=== PATIENT | female | born 1970 | race Caucasian/White ===

== ENCOUNTER 2019-08-20 16:42 | Inpatient (IN) | payer OTHER ==
[~2019-08-20] VITALS: Ht 160 cm; Wt 62.5 kg
[2019-08-20] MEDS ORDERED: SODIUM CHLORIDE 0.9% 1,000 ML IV ONE ×2 (17:12)
[2019-08-20 18:11] LABS: Basophils # (auto) 0 10 ^3/uL (0-0.2); Eosinophils # (auto) 0.1 10 ^3/uL (0-0.8); Mean Corpuscular Volume 76.4 fL (80.0-100.0); Monocytes # (auto) 0.3 10 ^3/uL (0-1.3)
[2019-08-20 18:13] LABS: Basophils % (auto) 0.5 % (0.0-2.0); Eosinophils % (auto) 0.8 % (0.0-7.0); Hematocrit 37.4 % (36.0-46.0); Hemoglobin 11.8 g/dL (12.2-16.2); Lymphocytes # (auto) 2.6 10 ^3/uL (0.4-5.4); Lymphocytes % (auto) 37.7 % (10.0-50.0); Mean Corpuscular Hemoglobin 24.2 pg (28.0-32.0); Mean Corpuscular Hgb Conc. 31.6 g/dL (32.0-36.0); Monocytes % (auto) 4.2 % (0.0-12.0); Neutrophils # (auto) 3.9 10 ^3/uL (1.6-8.6); Neutrophils % (auto) 56.8 % (37.0-80.0); Nucleated Red Blood Cells % 0.1 %; Platelet Count (auto) 433 10^3/uL (140-450); Red Blood Cells 4.89 10^6/uL (4.0-5.20); White Blood Cell 6.9 10^3/uL (4.4-10.8)
[2019-08-20 18:22] LABS: Red Cell Distribution Width 35.8 % (11.8-14.3)
[2019-08-20 18:25] LABS: Albumin 2.4 g/dL (3.4-5.0); Anion Gap 8 (5-15); Blood Urea Nitrogen 22 mg/dL (7-18); Calcium 8.2 mg/dL (8.5-10.1); Carbon Dioxide 24 mmol/L (21-32); Chloride 110 mmol/L (98-107); Glucose 86 mg/dL (74-106); Potassium 3.8 mmol/L (3.5-5.1); Sodium 142 mmol/L (136-145)
[2019-08-20 18:30] LABS: Alanine Aminotransferase 37 U/L (13-56); Alkaline Phosphatase 119 U/L (45-117); Aspartate Aminotransferase 31 U/L (15-37); Bilirubin, Total 0.2 mg/dL (0.2-1.0); GFR African American 68 mL/min; GFR Non-African American 56 mL/min
[2019-08-20] MEDS ORDERED: NITROGLYCERIN 0.4 MG SL TAB SL PRN (19:00)
[2019-08-20] MEDS ORDERED: MORPHINE SULF INJ 2 MG/ML SYRINGE 1ML IV PRN (19:00)
[2019-08-20] MEDS ORDERED: DOCUSATE SOD 100 MG CAP PO PRN (19:00)
[2019-08-20] MEDS ORDERED: TEMAZEPAM 15 MG CAP PO PRN (19:00)
[2019-08-20] MEDS ORDERED: ONDANSETRON HCL 4 MG/2 ML VIAL IV PRN (19:00)
--- NOTE | 2019-08-20 20:10 | NUR ---
received pt from er nurse poc reviewed, pt transferred into bed 218b with all property all questions and concerns addressed
[2019-08-20] MEDS ORDERED: ONDA-144 PO (21:07)
[2019-08-20] MEDS ORDERED: FERR-20 PO (21:07)
[2019-08-20] MEDS ORDERED: GABA300C10 PO (21:07)
[2019-08-20] MEDS ORDERED: TOPI100T29 PO (21:07)
[2019-08-20] MEDS ORDERED: TIOTCAP IN (21:07)
[2019-08-20] MEDS ORDERED: BEN2I PO (21:07)
[2019-08-20] MEDS ORDERED: ROPI6TAB PO (21:07)
[2019-08-20] MEDS ORDERED: VORT10TA PO (21:07)
[2019-08-20] MEDS ORDERED: IPRIH IN (21:07)
[2019-08-20] MEDS ORDERED: BENA-30 PO (21:07)
[2019-08-20] MEDS ORDERED: LURA80TA PO (21:07)
[2019-08-20] MEDS ORDERED: QUET200T4 PO (21:07)
[2019-08-20] MEDS ORDERED: METF-370 PO (21:07)
[2019-08-20] MEDS ORDERED: DOCU1CAP31 PO (21:07)
[2019-08-20] MEDS ORDERED: ALBU2TAB4 PO (21:07)
[2019-08-20] MEDS ORDERED: SIMV-8 PO (21:07)
[2019-08-20] MEDS ORDERED: FURO1TAB33 PO (21:07)
[2019-08-20] MEDS ORDERED: ALBUTEROL SULF 2.5 MG/0.5ML(0.5%) NEB SOLN NEB PRN (21:15)
[2019-08-20] MEDS ORDERED: methylPREDNISolone SOD SUCC 125 MG/2 ML VL IV ONE (21:15)
[2019-08-20] MEDS ORDERED: DEXTROSE (50%) 50ML SYRG IV PRN (21:15)
[2019-08-20 22:00] VITALS: BP 101/63
[2019-08-20] MEDS ORDERED: IPRATROPIUM BROM 0.5 MG/2.5ML INH SOL NEB SCH (22:00)
--- NOTE | 2019-08-20 22:15 | NUR ---
C/O GENERAL PAIN 12/20 MEDICATED ORDERED
[2019-08-20] MEDS: InsuLIN REG 1unit/0.01ml Soln (100units/ml) SC SCH (22:18)
[2019-08-20] MEDS: methylPREDNISolone SOD SUCC 40 MG/ML VL IV SCH (22:18)
[2019-08-20] MEDS: MORPHINE SULFATE 4 MG/ML SYR/VIAL IV PRN (22:18)
[2019-08-20] MEDS: AZITHROMYCIN 500MG/ 250ML 250 ML IV SCH (22:19)
[2019-08-20] MEDS: ACCU-CHEK COMFORT CURVE STRIP VI SCH (22:20)
[2019-08-20] MEDS: SODIUM CHLORIDE 0.9% 1,000 ML IV SCH (22:21)
--- NOTE | 2019-08-20 23:35 | NUR ---
RESTING COMFORTABLE RESP EVEN AND UNLABORED, CALL LIGHT WITHIN REACH
[2019-08-21] MEDS: SODIUM CHLORIDE 0.9% 1,000 ML IV SCH ×2 (02:52→06:12)
[2019-08-21] MEDS: MORPHINE SULFATE 4 MG/ML SYR/VIAL IV PRN ×2 (03:15→09:20)
[2019-08-21 03:43] LABS: Urine WBC None Seen /hpf (0 - 5)
[2019-08-21 04:06] LABS: Urine Bacteria NONE SEEN /hpf (None Seen); Urine Blood Negative /uL (Negative); Urine Mucus FEW (None Seen); Urine Specific Gravity 1.018 (1.001-1.035)
[2019-08-21 05:00] VITALS: BP 87/54
[2019-08-21] MEDS: methylPREDNISolone SOD SUCC 40 MG/ML VL IV SCH (05:36)
[2019-08-21] MEDS: ACCU-CHEK COMFORT CURVE STRIP VI SCH ×2 (05:36→12:44)
[2019-08-21] MEDS: InsuLIN REG 1unit/0.01ml Soln (100units/ml) SC SCH ×2 (05:46→12:40)
[2019-08-21] MEDS ORDERED: FUROSEMIDE 20 MG/2 ML VIAL IV SCH (06:00)
[2019-08-21 06:17] VITALS: BP 93/54
--- NOTE | 2019-08-21 06:44 | NUR ---
REPORT GIVEN TO AM NURSE POC REVIEWED
[2019-08-21 07:16] LABS: Basophils # (auto) 0 10 ^3/uL (0-0.2); Eosinophils # (auto) 0 10 ^3/uL (0-0.8); Eosinophils % (auto) 0.1 % (0.0-7.0); Monocytes # (auto) 0.1 10 ^3/uL (0-1.3); Neutrophils # (auto) 2.5 10 ^3/uL (1.6-8.6)
[2019-08-21 07:20] LABS: Basophils % (auto) 0.6 % (0.0-2.0); Hematocrit 32.4 % (36.0-46.0); Hemoglobin 10.2 g/dL (12.2-16.2); Lymphocytes % (auto) 28.7 % (10.0-50.0); Mean Corpuscular Hemoglobin 24.2 pg (28.0-32.0); Mean Corpuscular Hgb Conc. 31.6 g/dL (32.0-36.0); Mean Corpuscular Volume 76.6 fL (80.0-100.0); Monocytes % (auto) 2.7 % (0.0-12.0); Neutrophils % (auto) 67.9 % (37.0-80.0); Nucleated Red Blood Cells % 0.1 %; Platelet Count (auto) 387 10^3/uL (140-450); Red Blood Cells 4.23 10^6/uL (4.0-5.20); White Blood Cell 3.6 10^3/uL (4.4-10.8)
[2019-08-21 07:23] LABS: Red Cell Distribution Width 35.9 % (11.8-14.3)
[2019-08-21 07:30] LABS: INR 1.01 (0.9-1.15); Partial Thromboplastin Time 24.5 sec (23.64-32.05)
--- NOTE | 2019-08-21 07:30 | NUR ---
Opening Shift Note Assumed care of patient, awake and alert. No S/S of distress/SOB or pain. Instructed on POC and to call for assist PRN, will continue to monitor for changes Q1hr and PRN. Bed in low and locked position, rails up x2, no-slip socks on.
[2019-08-21 07:34] LABS: % Iron Saturation 33.9 % (15-50)
[2019-08-21 07:36] LABS: Magnesium 1.7 mg/dL (1.6-2.6); Potassium 4.3 mmol/L (3.5-5.1)
[2019-08-21 07:43] LABS: Albumin 1.8 g/dL (3.4-5.0); BUN/Creatinine Ratio 21.4; Bilirubin, Total 0.1 mg/dL (0.2-1.0); CRP High Sensitivity 0.04 mg/dL (< 0.3); Calcium 7.8 mg/dL (8.5-10.1); Phosphorus 3.4 mg/dL (2.5-4.90)
[2019-08-21 08:36] LABS: Ferritin 21.8 ng/mL (10-322)
[2019-08-21 08:55] LABS: Folate (Folic Acid) 6.04 ng/mL (5.38-24)
[2019-08-21 09:00] VITALS: BP 99/64
[2019-08-21] MEDS: AZITHROMYCIN 500MG/ 250ML 250 ML IV SCH (09:20)
[2019-08-21] MEDS ORDERED: ENOXAPARIN SOD 40 MG/0.4 ML SYRINGE SC SCH (10:00)
--- NOTE | 2019-08-21 12:33 | NUR ---
DR Donte JUAREZ AT BEDSIDE ORDERS FOR DISCHARGE
[2019-08-21 13:22] VITALS: BP 99/64
--- NOTE | 2019-08-21 14:25 | NUR ---
DISCHARGE Discharge instructions given as ordered. Encourage to follow up with PMD as instructed. All questions and concerns addressed. Patient verbalized understanding. Medication reconciliation form completed and copy given to patient. IV removed with catheter intact, pressure dressing applied. Patient taken to [facility] via wheelchair with all personal belongings, accompanied by staff to await for family downstairs. No distress noted at time of departure.
[2019-08-22 04:06] LABS: RPR Non Reactive (Non Reactive)
== END 2019-08-21 14:25 | disposition home or self-care (01) | DRG 202 ==
LOC: ER 16:42 → CENTRAL 16:43
PROVIDERS: ADMIT Hospitalist; ATTEND Family Medicine
DX: J45.901 Unspecified asthma with (acute) exacerbation (principal); J44.1 Chronic obstructive pulmonary disease with (acute) exacerbation; E44.0 Moderate protein-calorie malnutrition; D64.9 Anemia, unspecified; R62.7 Adult failure to thrive; F17.210 Nicotine dependence, cigarettes, uncomplicated; Z90.49 Acquired absence of other specified parts of digestive tract; Z90.710 Acquired absence of both cervix and uterus; Z79.899 Other long term (current) drug therapy; Z83.3 Family history of diabetes mellitus; Z82.49 Family history of ischemic heart disease and other diseases of the circulatory system; Z98.84 Bariatric surgery status; Z68.24 Body mass index [BMI] 24.0-24.9, adult; Z71.6 Tobacco abuse counseling; Z88.0 Allergy status to penicillin
CPT/HCPCS: 36415; 70450; 71045; 80053; 80061; 81001; 82607; 82728; 82746; 82962; 83036; 83540; 83550; 83615; 83735; 83880; 84100; 84443; 84484; 85025; 85045; 85610; 85652; 85730; 86141; 86592; 86850; 86900; 86901; 93005; 96360; 96361; 99291; G0378; J1815

== ENCOUNTER 2019-11-23 17:09 | Emergency (ER) | payer OTHER, MEDICAID ==
[~2019-11-23] VITALS: Ht 162.6 cm; Wt 59.9 kg
[~2019-11-23 17:09] MED LIST: ALBU2TAB4 PO; BEN2I PO; BENA-30 PO; DOCU1CAP31 PO; FERR-20 PO; FURO1TAB33 PO; GABA300C10 PO; IPRIH IN; LURA80TA PO; METF-370 PO; ONDA-144 PO; QUET200T4 PO; ROPI6TAB PO; SIMV-8 PO; TIOTCAP IN; TOPI100T29 PO; VORT10TA PO
[2019-11-23] MEDS ORDERED: SODIUM CHLORIDE 0.9% 500 ML IVB ONE (18:08)
[2019-11-23] MEDS ORDERED: HYDROmorphone HCL 2 MG/ML VL IV ONE (18:15)
[2019-11-23] MEDS ORDERED: ONDANSETRON HCL 4 MG/2 ML VIAL IV ONE (18:15)
[2019-11-23 18:37] LABS: Basophils # (auto) 0.1 10 ^3/uL (0-0.2); Basophils % (auto) 1.3 % (0.0-2.0); Eosinophils # (auto) 0.1 10 ^3/uL (0-0.8); Eosinophils % (auto) 1.3 % (0.0-7.0); Hematocrit 35.5 % (36.0-46.0); Hemoglobin 11.3 g/dL (12.2-16.2); Lymphocytes # (auto) 2.5 10 ^3/uL (0.4-5.4); Lymphocytes % (auto) 40.3 % (10.0-50.0); Mean Corpuscular Hemoglobin 29.4 pg (28.0-32.0); Mean Corpuscular Hgb Conc. 31.9 g/dL (32.0-36.0); Mean Corpuscular Volume 92.3 fL (80.0-100.0); Monocytes # (auto) 0.5 10 ^3/uL (0-1.3); Neutrophils % (auto) 49.1 % (37.0-80.0); Nucleated Red Blood Cells % 0.1 %; Platelet Count (auto) 357 10^3/uL (140-450); Red Blood Cells 3.85 10^6/uL (4.0-5.20); Red Cell Distribution Width 17.8 % (11.8-14.3); White Blood Cell 6.1 10^3/uL (4.4-10.8)
[2019-11-23 18:46] LABS: Albumin 1.6 g/dL (3.4-5.0); Calcium 7.4 mg/dL (8.5-10.1); Magnesium 2.4 mg/dL (1.6-2.6); Potassium 3.8 mmol/L (3.5-5.1)
[2019-11-23 18:50] LABS: BUN/Creatinine Ratio 14.3; Bilirubin, Total 0.6 mg/dL (0.2-1.0); Total Protein 4.7 g/dL (6.4-8.2)
[2019-11-23] MEDS ORDERED: ONDANSETRON ODT 4 MG TAB PO ONE (22:00)
[2019-11-23] MEDS ORDERED: metroNIDAZOLE 500MG/100ML 100 ML IV ONE (22:45)
[2019-11-23] MEDS ORDERED: levoFLOXacin 500MG 100 ML IV ONE (22:45)
[2019-11-23] MEDS ORDERED: metroNIDAZOLE 500 MG TAB PO ONE (22:45)
[2019-11-24] VITALS: BP 94/61
== END 2019-11-24 00:30 | disposition other institution (70) ==
LOC: ER 17:09
DX: K56.600 Partial intestinal obstruction, unspecified as to cause (principal); F17.210 Nicotine dependence, cigarettes, uncomplicated; Z86.2 Personal history of diseases of the blood and blood-forming organs and certain disorders involving the immune mechanism; Z90.49 Acquired absence of other specified parts of digestive tract; Z90.89 Acquired absence of other organs; Z90.710 Acquired absence of both cervix and uterus; Z79.899 Other long term (current) drug therapy; Z88.0 Allergy status to penicillin
CPT/HCPCS: 36415; 74176; 80053; 82150; 83690; 83735; 85025; 93005; 96365; 96375; 99285; J1170; J1956; J2405; Q0162

== ENCOUNTER 2020-02-17 17:37 | Inpatient (IN) | payer OTHER, MEDICAID ==
[~2020-02-17] VITALS: Ht 162.6 cm; Wt 53.0 kg
[2020-02-17 18:27] LABS: Basophils # (auto) 0.1 10 ^3/uL (0-0.2); Basophils % (auto) 1.1 % (0.0-2.0); Eosinophils # (auto) 0.2 10 ^3/uL (0-0.8); Eosinophils % (auto) 1.9 % (0.0-7.0); Hematocrit 36.8 % (36.0-46.0); Hemoglobin 12.2 g/dL (12.2-16.2); Lymphocytes # (auto) 1.9 10 ^3/uL (0.4-5.4); Lymphocytes % (auto) 17.4 % (10.0-50.0); Mean Corpuscular Hemoglobin 30.3 pg (28.0-32.0); Mean Corpuscular Hgb Conc. 33.3 g/dL (32.0-36.0); Monocytes # (auto) 0.5 10 ^3/uL (0-1.3); Monocytes % (auto) 5.1 % (0.0-12.0); Neutrophils # (auto) 8.1 10 ^3/uL (1.6-8.6); Neutrophils % (auto) 74.5 % (37.0-80.0); Platelet Count (auto) 406 10^3/uL (140-450); Red Blood Cells 4.05 10^6/uL (4.0-5.20); Red Cell Distribution Width 14.5 % (11.8-14.3); White Blood Cell 10.9 10^3/uL (4.4-10.8)
[2020-02-17 18:38] LABS: Alanine Aminotransferase 19 U/L (13-56); Albumin 1.6 g/dL (3.4-5.0); Anion Gap 6 (5-15); Aspartate Aminotransferase 21 U/L (15-37); BUN/Creatinine Ratio 16.1; Blood Urea Nitrogen 9 mg/dL (7-18); Calcium 7.7 mg/dL (8.5-10.1); Carbon Dioxide 24 mmol/L (21-32); Chloride 114 mmol/L (98-107); GFR African American 148 mL/min; GFR Non-African American 122 mL/min; Glucose 82 mg/dL (74-106); Sodium 144 mmol/L (136-145)
[2020-02-17 18:43] LABS: Alkaline Phosphatase 233 U/L (45-117); Bilirubin, Total 0.6 mg/dL (0.2-1.0)
[2020-02-17 18:48] LABS: Potassium 2.4 mmol/L (3.5-5.1)
[2020-02-17] MEDS ORDERED: POTASSIUM CHL 20MEQ/100ML 100 ML IV ONE (20:15)
[2020-02-17] MEDS ORDERED: ONDANSETRON HCL 4 MG/2 ML VIAL IV ONE (20:45)
[2020-02-17] MEDS ORDERED: MORPHINE SULFATE 4 MG/ML SYR/VIAL IV ONE (20:45)
[2020-02-17] MEDS ORDERED: POTASSIUM CHL 20 Meq TABLET PO ONE (21:45)
[2020-02-17] MEDS ORDERED: ALBUTEROL SULF HFA 90MCG INH 200DOSE IN SCH (22:00)
[2020-02-17] MEDS: ATORVASTATIN 20 MG TAB PO SCH (22:21)
[2020-02-17 22:30] LABS: CRP High Sensitivity 8.52 mg/dL (< 0.3)
[2020-02-17] MEDS ORDERED: DEXTROSE (50%) 50ML SYRG IV PRN (22:30)
[2020-02-17] MEDS ORDERED: MORPHINE SULF INJ 2 MG/ML SYRINGE 1ML IV PRN (22:30)
[2020-02-17] MEDS ORDERED: TEMAZEPAM 15 MG CAP PO PRN (22:30)
[2020-02-17] MEDS ORDERED: NITROGLYCERIN 0.4 MG SL TAB SL PRN (22:30)
[2020-02-17 22:57] VITALS: BP 116/78
--- NOTE | 2020-02-17 22:57 | NUR ---
Respiratory note: PT CURRENTLY ON RA. NO RESP DISTRESS NOTED. MEDICATION HELD DUE TO COVID TEST PENDING. SPO2 97%, HR 77, RR 16 BS CLEAR T/O. WILL CONTINUE TO MONITOR PT T/O SHIFT.
[2020-02-17] MEDS: DOXYCYCLINE 100MG/250ML 250 ML IV SCH (23:31)
[2020-02-17] MEDS: TOPIRAMATE 100 MG TAB PO SCH (23:32)
[2020-02-18] MEDS: HYDROcodone-ACET 5/325MG TAB PO PRN ×3 (02:26→10:38)
--- NOTE | 2020-02-18 05:15 | NUR ---
Telemetry admit from ER [facility] admitted to Telemetry unit after SBAR received. Patient oriented to SOPHIE GRANT RN primary RN, unit, room, bed, and unit policies regarding patient care and visiting hours. Patient now on continuous telemetry monitoring, tele box # 66 and telemetry reading on arrival to unit is Sinus Rhythm at 98BPM. Patient placed on bedside oxygen, weighed by bedscale and encouraged to call if they need something. All questions and concerns addressed, patient verbalized understanding.
[2020-02-18] MEDS ORDERED: SODIUM CHLORIDE 0.9 % NEB SOLN 3ML NEB ONE ×3 (05:38→10:58)
[2020-02-18 05:50] VITALS: BP 110/69
[2020-02-18 05:50] LABS: Basophils # (auto) 0.1 10 ^3/uL (0-0.2); Basophils % (auto) 0.8 % (0.0-2.0); Eosinophils # (auto) 0.4 10 ^3/uL (0-0.8); Eosinophils % (auto) 4.9 % (0.0-7.0); Hematocrit 36.4 % (36.0-46.0); Hemoglobin 11.9 g/dL (12.2-16.2); Lymphocytes % (auto) 22.5 % (10.0-50.0); Mean Corpuscular Hemoglobin 29.8 pg (28.0-32.0); Mean Corpuscular Hgb Conc. 32.6 g/dL (32.0-36.0); Mean Corpuscular Volume 91.3 fL (80.0-100.0); Monocytes # (auto) 0.5 10 ^3/uL (0-1.3); Monocytes % (auto) 5.3 % (0.0-12.0); Neutrophils % (auto) 66.5 % (37.0-80.0); Platelet Count (auto) 412 10^3/uL (140-450); Red Blood Cells 3.99 10^6/uL (4.0-5.20); Red Cell Distribution Width 14.8 % (11.8-14.3)
[2020-02-18 06:05] LABS: Albumin 1.5 g/dL (3.4-5.0); Calcium 7.2 mg/dL (8.5-10.1)
[2020-02-18 06:08] LABS: BUN/Creatinine Ratio 17.1; Bilirubin, Total 0.7 mg/dL (0.2-1.0); Total Protein 5.5 g/dL (6.4-8.2)
--- NOTE | 2020-02-18 06:15 | NUR ---
Patient's blood sugar is 60mg/dl. Ararat and juice given. Will monitor
[2020-02-18 06:27] LABS: Potassium 2.9 mmol/L (3.5-5.1)
--- NOTE | 2020-02-18 06:30 | NUR ---
Lab called and reports potassium of 2.9. Hospitalist paged awaiting call back.
[2020-02-18] MEDS: GABAPENTIN 300 MG CAP PO SCH ×3 (06:35→21:31)
[2020-02-18] MEDS: InsuLIN REG 1unit/0.01ml Soln (100units/ml) SC SCH ×2 (06:35→11:21)
[2020-02-18] MEDS: ACCU-CHEK COMFORT CURVE STRIP VI SCH ×2 (06:35→11:22)
--- NOTE | 2020-02-18 07:30 | NUR ---
Hospitalist called back and received an order for potassium 40Meq PO once. Order noted.
[2020-02-18] MEDS ORDERED: POTASSIUM CHL 20 Meq TABLET PO ONE ×2 (07:45→12:15)
[2020-02-18] MEDS: FERROUS SULFATE 325 MG TAB PO SCH ×2 (08:05→18:09)
[2020-02-18] MEDS: ALBUTEROL SULF 2.5 MG/0.5ML(0.5%) NEB SOLN NEB SCH ×3 (08:07→18:52)
[2020-02-18] MEDS ORDERED: ZINC SULFATE 220mg CAP or TAB PO SCH (10:00)
[2020-02-18] MEDS ORDERED: CHOLECALCIFEROL (VITD3) 2,000 UNIT CAP PO SCH (10:00)
[2020-02-18] MEDS ORDERED: ENOXAPARIN SOD 40 MG/0.4 ML SYRINGE SC SCH (10:00)
[2020-02-18] MEDS ORDERED: ASCORBIC ACID 1,000 MG TAB PO SCH (10:00)
[2020-02-18] MEDS: ENOXAPARIN SOD 40 MG/0.4 ML SYRINGE SC SCH (10:39)
[2020-02-18] MEDS: PANTOPRAZOLE 40 MG TAB PO SCH (10:40)
[2020-02-18] MEDS: BENAZEPRIL HCL 10 MG TAB PO SCH (10:40)
[2020-02-18] MEDS: FAMOTIDINE 20 MG TAB PO SCH ×2 (10:41→21:31)
[2020-02-18] MEDS: DOXYCYCLINE 100MG/250ML 250 ML IV SCH (10:42)
[2020-02-18] MEDS: DexAMETHasone SOD PHOS 10MG/1ML VIAL INJ IV SCH (10:43)
[2020-02-18] MEDS ORDERED: levoFLOXacin 500MG 100 ML IV ONE (12:15)
[2020-02-18] MEDS: MORPHINE SULF INJ 2 MG/ML SYRINGE 1ML IV PRN ×3 (12:40→23:01)
[2020-02-18] MEDS ORDERED: IOHEXOL 350 MG/ML 100ML IJ ONE (13:16)
--- NOTE | 2020-02-18 19:20 | NUR ---
Opening Shift Note Received report from janelle Adame RN. Assumed care of patient, awake and alert. No S/S of distress/SOB or pain. Instructed on POC and to call for assist PRN, will continue to monitor for changes Q1hr and PRN. Bed placed in lowest position and call light within reach.
[2020-02-18] MEDS: TOPIRAMATE 100 MG TAB PO SCH (21:30)
[2020-02-18] MEDS: ATORVASTATIN 20 MG TAB PO SCH (21:31)
[2020-02-18 22:27] VITALS: BP 111/74
[2020-02-19] MEDS: ALBUTEROL SULF 2.5 MG/0.5ML(0.5%) NEB SOLN NEB SCH ×4 (00:25→19:25)
[2020-02-19 05:17] VITALS: BP 119/74
[2020-02-19] MEDS: GABAPENTIN 300 MG CAP PO SCH ×3 (05:34→22:04)
[2020-02-19] MEDS: MORPHINE SULF INJ 2 MG/ML SYRINGE 1ML IV PRN ×4 (05:35→22:05)
[2020-02-19 06:09] LABS: Potassium 3.9 mmol/L (3.5-5.1)
[2020-02-19 06:13] LABS: BUN/Creatinine Ratio 13.6; Calcium 7.7 mg/dL (8.5-10.1)
[2020-02-19] MEDS ORDERED: LAM100T PO (07:33)
[2020-02-19 09:00] VITALS: BP 98/64
[2020-02-19] MEDS: PANTOPRAZOLE 40 MG TAB PO SCH (09:21)
[2020-02-19] MEDS: BENAZEPRIL HCL 10 MG TAB PO SCH (09:21)
[2020-02-19] MEDS: FAMOTIDINE 20 MG TAB PO SCH ×2 (09:22→22:05)
[2020-02-19] MEDS: DexAMETHasone SOD PHOS 10MG/1ML VIAL INJ IV SCH (09:22)
[2020-02-19] MEDS: ENOXAPARIN SOD 40 MG/0.4 ML SYRINGE SC SCH (09:22)
[2020-02-19] MEDS: FERROUS SULFATE 325 MG TAB PO SCH ×2 (09:22→18:38)
[2020-02-19] MEDS: levoFLOXacin 500MG 100 ML IV SCH (09:23)
[2020-02-19 13:00] VITALS: BP 109/74
[2020-02-19] MEDS: CLINDAMYCIN 600MG IV 50 ML IV SCH ×2 (13:36→22:04)
--- NOTE | 2020-02-19 13:40 | NUR ---
Low BP Patient was asking for pain medication and her BP was noted to be low 87/54 and she will also be having thoracentesis done today. Medication held at this time and Dr. Gonzales was notified of the low BP. stated to observe any changes in BP and to hold pain medication at this time. Patient aware of same. Will continue to monitor patient.
--- NOTE | 2020-02-19 14:50 | NUR ---
Dr Gonzales was in to do thoracentesis on patient but only obtained small amount sanguinous drainage and will have Dr. Quigley to do thoracentesis on patient.
[2020-02-19] MEDS ORDERED: LIDOCAINE 2% (LOCAL ANESTH.) PF 5ml SDV ONE (15:02)
--- NOTE | 2020-02-19 16:00 | NUR ---
Dr. Quigley was in and did thoracentesis on patient. Obtained 450 ml of sanguinous fluid and pressure applied to puncture site after and bandaid applied after. Procedure tolerated well by patient.
[2020-02-19 16:48] VITALS: BP 112/69
--- NOTE | 2020-02-19 19:42 | NUR ---
Opening Shift Note Received report and assumed care of patient. Patient is awake and alert. No signs or symptoms of distress noted. Instructed patient on plan of care and to call for assistance as needed. Will continue to monitor.
[2020-02-19] MEDS: ONDANSETRON HCL 4 MG/2 ML VIAL IV PRN (20:41)
[2020-02-19] MEDS: TOPIRAMATE 100 MG TAB PO SCH (22:05)
[2020-02-19] MEDS: ATORVASTATIN 20 MG TAB PO SCH (22:05)
--- NOTE | 2020-02-19 22:05 | NUR ---
Pain Medication Administration Patient complaining of back incisional pain 10/10. Will administer pain medication per MD order. Will reassess pain level and will continue to monitor.
--- NOTE | 2020-02-19 22:35 | NUR ---
Pain Level Reassessment Patient asleep for pain level reassessment. No signs or symptoms of distress noted. Will continue to monitor.
[2020-02-19 22:38] VITALS: BP 116/77
[2020-02-20] MEDS: ALBUTEROL SULF 2.5 MG/0.5ML(0.5%) NEB SOLN NEB SCH ×4 (00:27→18:54)
[2020-02-20] MEDS: MORPHINE SULF INJ 2 MG/ML SYRINGE 1ML IV PRN ×5 (04:21→22:59)
--- NOTE | 2020-02-20 04:21 | NUR ---
Pain Medication Administration Patient complaining of back incisional pain 12/20. Will administer pain medication per MD order. Will reassess pain level and will continue to monitor.
--- NOTE | 2020-02-20 04:51 | NUR ---
Pain Level Reassessment Patient asleep for pain level reassessment. No signs or symptoms of distress noted. Will continue to monitor.
[2020-02-20 05:09] VITALS: BP 128/74
[2020-02-20] MEDS: CLINDAMYCIN 600MG IV 50 ML IV SCH ×3 (05:53→22:58)
[2020-02-20] MEDS: GABAPENTIN 300 MG CAP PO SCH ×3 (05:53→22:59)
[2020-02-20 05:58] VITALS: BP 118/73
[2020-02-20] MEDS: FERROUS SULFATE 325 MG TAB PO SCH ×2 (07:46→18:10)
[2020-02-20 08:41] VITALS: BP 109/67
[2020-02-20] MEDS: BENAZEPRIL HCL 10 MG TAB PO SCH (10:00)
[2020-02-20] MEDS: PANTOPRAZOLE 40 MG TAB PO SCH (10:53)
[2020-02-20] MEDS: ENOXAPARIN SOD 40 MG/0.4 ML SYRINGE SC SCH (10:53)
[2020-02-20] MEDS: levoFLOXacin 500MG 100 ML IV SCH (10:53)
[2020-02-20] MEDS: FAMOTIDINE 20 MG TAB PO SCH ×2 (10:54→22:59)
[2020-02-20] MEDS: methylPREDNISolone SOD SUCC 40 MG/ML VL IV SCH (10:55)
[2020-02-20 12:34] VITALS: BP 110/65
--- NOTE | 2020-02-20 14:15 | NUR ---
IV removal IV DC'd with clean sterile technique, catheter fully intact. Pressure dressing applied to site. Patient tolerated well. NOTE: IV SITE NOTED TO BE LEAKING IV insertion IV access obtained, via clean sterile technique by inserting 20 gauge catheter at RIGHT ANTECUBITAL after 1 attempt(s). IV secured properly. No trauma to site. Patient tolerated well.
[2020-02-20 16:34] VITALS: BP 116/72
[2020-02-20 20:34] VITALS: BP 116/72
[2020-02-20] MEDS: ATORVASTATIN 20 MG TAB PO SCH (22:58)
[2020-02-20] MEDS: TOPIRAMATE 100 MG TAB PO SCH (22:59)
--- NOTE | 2020-02-20 22:59 | NUR ---
Pain Medication Administration Patient complaining of back incisional pain 01/20. Will administer pain medication per MD order. Will reassess pain level and will continue to monitor.
--- NOTE | 2020-02-20 23:29 | NUR ---
Pain Level Reassessment Patient asleep for pain level reassessment. No signs or symptoms of distress noted. Will continue to monitor.
[2020-02-21] MEDS: ALBUTEROL SULF 2.5 MG/0.5ML(0.5%) NEB SOLN NEB SCH ×4 (00:12→18:44)
[2020-02-21 05:17] VITALS: BP 113/65
[2020-02-21] MEDS: MORPHINE SULF INJ 2 MG/ML SYRINGE 1ML IV PRN (05:19)
--- NOTE | 2020-02-21 05:19 | NUR ---
Pain Medication Administration Patient complaining of back incisional pain 01/20. Will administer pain medication per MD order. Will reassess pain level and will continue to monitor.
[2020-02-21] MEDS: CLINDAMYCIN 600MG IV 50 ML IV SCH ×3 (05:21→21:58)
[2020-02-21] MEDS: GABAPENTIN 300 MG CAP PO SCH ×3 (05:21→21:58)
[2020-02-21 05:44] LABS: Basophils # (auto) 0.1 10 ^3/uL (0-0.2); Eosinophils # (auto) 0.5 10 ^3/uL (0-0.8); Hemoglobin 10.1 g/dL (12.2-16.2); Lymphocytes # (auto) 2.3 10 ^3/uL (0.4-5.4); Monocytes # (auto) 0.6 10 ^3/uL (0-1.3)
[2020-02-21 05:47] LABS: Basophils % (auto) 0.8 % (0.0-2.0); Eosinophils % (auto) 5.3 % (0.0-7.0); Hematocrit 30.6 % (36.0-46.0); Lymphocytes % (auto) 26.1 % (10.0-50.0); Mean Corpuscular Hemoglobin 30.6 pg (28.0-32.0); Mean Corpuscular Hgb Conc. 32.9 g/dL (32.0-36.0); Mean Corpuscular Volume 93.2 fL (80.0-100.0); Neutrophils # (auto) 5.5 10 ^3/uL (1.6-8.6); Neutrophils % (auto) 60.8 % (37.0-80.0); Platelet Count (auto) 548 10^3/uL (140-450); Red Blood Cells 3.28 10^6/uL (4.0-5.20); Red Cell Distribution Width 14.7 % (11.8-14.3)
--- NOTE | 2020-02-21 05:49 | NUR ---
Pain Level Reassessment Patient asleep for pain level reassessment. No signs or symptoms of distress noted. Will continue to monitor.
[2020-02-21 06:02] LABS: Albumin 1.4 g/dL (3.4-5.0); Calcium 7.6 mg/dL (8.5-10.1); Potassium 3.7 mmol/L (3.5-5.1)
[2020-02-21 06:07] LABS: BUN/Creatinine Ratio 17.1; Bilirubin, Total 0.4 mg/dL (0.2-1.0); Total Protein 5.7 g/dL (6.4-8.2)
--- NOTE | 2020-02-21 07:30 | NUR ---
Opening Shift Note RECEIVED REPORT FROM NOC RN. Assumed care of patient, awake and alert. PATIENT ON OXYGEN AT 2 LPM VIA NASAL CANNULA WITH no S/S of distress/SOB or pain. BED IN LOWEST, LOCKED POSITION WITH SIDERAILS UP x2 AND CALL LIGHT WITHIN REACH. Instructed on POC and to call for assist PRN, will continue to monitor for changes Q1hr and PRN.
[2020-02-21 08:26] VITALS: BP 106/67
[2020-02-21] MEDS: FERROUS SULFATE 325 MG TAB PO SCH ×2 (08:55→17:50)
--- NOTE | 2020-02-21 09:04 | NUR ---
DR. VIGIL ADVISED OF XRAY RESULTS.
[2020-02-21] MEDS: levoFLOXacin 500MG 100 ML IV SCH (10:29)
[2020-02-21] MEDS: methylPREDNISolone SOD SUCC 40 MG/ML VL IV SCH (10:29)
[2020-02-21] MEDS: BENAZEPRIL HCL 10 MG TAB PO SCH (10:29)
[2020-02-21] MEDS: FAMOTIDINE 20 MG TAB PO SCH ×2 (10:30→21:58)
[2020-02-21] MEDS: PANTOPRAZOLE 40 MG TAB PO SCH (10:30)
[2020-02-21] MEDS: ENOXAPARIN SOD 40 MG/0.4 ML SYRINGE SC SCH (10:30)
[2020-02-21] MEDS: HYDROmorphone HCL 2 MG/ML VL IV PRN ×3 (10:40→21:59)
[2020-02-21 12:59] VITALS: BP 100/61
[2020-02-21 16:58] VITALS: BP 95/69
--- NOTE | 2020-02-21 18:45 | NUR ---
AT BEDSIDE FOR MED MILTON NESBITT.
[2020-02-21] MEDS: ONDANSETRON HCL 4 MG/2 ML VIAL IV PRN (19:55)
--- NOTE | 2020-02-21 19:55 | NUR ---
Opening Shift Note Received report and assumed care of patient. Patient is awake and alert, states she is nauseous and is requesting Zofran. Will administer medication per MD order. Instructed patient on plan of care and to call for assistance as needed. Will continue to monitor.
[2020-02-21] MEDS: TOPIRAMATE 100 MG TAB PO SCH (21:58)
[2020-02-21] MEDS: ATORVASTATIN 20 MG TAB PO SCH (21:58)
--- NOTE | 2020-02-21 21:59 | NUR ---
Pain Medication Administration Patient complaining of back incisional pain 01/20. Will administer pain medication per MD order. Will reassess pain level and will continue to monitor.
--- NOTE | 2020-02-21 22:29 | NUR ---
Pain Level Reassessment Patient asleep for pain level reassessment. No signs or symptoms of distress noted. Will continue to monitor.
[2020-02-21 23:22] VITALS: BP 128/75
[2020-02-21] MEDS: guaiFENesin 200 MG/10 ML UD PO PRN (23:53)
[2020-02-21 23:58] LABS: INR 1.04 (0.9-1.15)
[2020-02-22] MEDS: ALBUTEROL SULF 2.5 MG/0.5ML(0.5%) NEB SOLN NEB SCH ×4 (00:27→18:29)
--- NOTE | 2020-02-22 00:29 | NUR ---
AT BEDSIDE FOR MED MILTON NESBITT.
--- NOTE | 2020-02-22 00:40 | NUR ---
RN GAEL COMMUNICATED PER MD SPANGLER HE WOULD LIKE PTS SATS TO BE HIGHER THAN 98% FOR 24H DUE TO PNUEMO. INCREASED PT TO 6LPM VIA NC PTS SATS ARE AT 98-100% RN AT BEDSIDE AND AWARE.
[2020-02-22] MEDS: HYDROmorphone HCL 2 MG/ML VL IV PRN ×5 (02:01→23:07)
--- NOTE | 2020-02-22 02:01 | NUR ---
Pain Medication Administration Patient complaining of back incisional pain 01/20. Will administer pain medication per MD order. Will reassess pain level and will continue to monitor.
--- NOTE | 2020-02-22 02:31 | NUR ---
Pain Level Reassessment Patient asleep for pain level reassessment. No signs or symptoms of distress noted. Will continue to monitor.
[2020-02-22] MEDS: guaiFENesin 200 MG/10 ML UD PO PRN ×3 (04:58→20:05)
[2020-02-22 05:21] VITALS: BP 111/68
[2020-02-22] MEDS: CLINDAMYCIN 600MG IV 50 ML IV SCH ×3 (06:04→23:04)
[2020-02-22] MEDS: GABAPENTIN 300 MG CAP PO SCH ×3 (06:04→23:05)
--- NOTE | 2020-02-22 06:05 | NUR ---
Pain Medication Administration Patient complaining of back incisional pain 12/20. Will administer pain medication per MD order. Will reassess pain level and will continue to monitor.
--- NOTE | 2020-02-22 06:35 | NUR ---
Pain Level Reassessment Patient asleep for pain level reassessment. No signs or symptoms of distress noted. Will continue to monitor.
--- NOTE | 2020-02-22 07:30 | NUR ---
STATUS PT SITTING UP IN BED EATING BREAKFAST. STATES HER PAIN LEVEL GOAL IN LESS THAN 9, CURRENTLY SHE IS AT A 6 AND HAS NO REQUESTS. RESPIRATIONS EQUAL AND UNLABORED, NO C/O OF SOB. TODAYS POC REVIEWED, TELE REMAINS IN PLACED AND MONITORED, BED IN LOW POSITION AND CALL LIGHT IN REACH. WILL CONTINUE TO MONITOR
[2020-02-22 09:00] VITALS: BP 112/67
[2020-02-22] MEDS: PANTOPRAZOLE 40 MG TAB PO SCH (09:32)
[2020-02-22] MEDS: FERROUS SULFATE 325 MG TAB PO SCH ×2 (09:32→18:00)
[2020-02-22] MEDS: FAMOTIDINE 20 MG TAB PO SCH ×2 (09:32→23:06)
[2020-02-22] MEDS: methylPREDNISolone SOD SUCC 40 MG/ML VL IV SCH (09:32)
[2020-02-22] MEDS: BENAZEPRIL HCL 10 MG TAB PO SCH (09:33)
[2020-02-22] MEDS: ENOXAPARIN SOD 40 MG/0.4 ML SYRINGE SC SCH (09:33)
--- NOTE | 2020-02-22 10:45 | NUR ---
DR ROLLINS AT BEDSIDE REVIEWING CT RESULTS AND INFORMING PT OF SURGICAL CONSULT AND NEED FOR CHEST TUBE PLACEMENT
--- NOTE | 2020-02-22 11:10 | NUR ---
DR DUPREE AT BEDSIDE FRO CONSULT INFORMED PT ON CHEST TUBE PLACEMENT AND INSTRUCTED HER TO NOT EAT AFTER MIDNIGHT. PT VERBALIZED UNDERSTANDING.
[2020-02-22] MEDS: levoFLOXacin 500MG 100 ML IV SCH (11:15)
--- NOTE | 2020-02-22 11:30 | NUR ---
DR VIGIL AT BEDSIDE REVIEWING POC
[2020-02-22 11:44] LABS: Basophils # (auto) 0 10 ^3/uL (0-0.2); Basophils % (auto) 0.3 % (0.0-2.0); Eosinophils # (auto) 0.3 10 ^3/uL (0-0.8); Eosinophils % (auto) 2.8 % (0.0-7.0); Hematocrit 34.2 % (36.0-46.0); Hemoglobin 11.4 g/dL (12.2-16.2); Lymphocytes # (auto) 0.9 10 ^3/uL (0.4-5.4); Lymphocytes % (auto) 10.2 % (10.0-50.0); Mean Corpuscular Hemoglobin 30.9 pg (28.0-32.0); Mean Corpuscular Hgb Conc. 33.2 g/dL (32.0-36.0); Monocytes # (auto) 0.4 10 ^3/uL (0-1.3); Monocytes % (auto) 4.9 % (0.0-12.0); Neutrophils # (auto) 7.5 10 ^3/uL (1.6-8.6); Neutrophils % (auto) 81.8 % (37.0-80.0); Nucleated Red Blood Cells % 0.1 %; Platelet Count (auto) 659 10^3/uL (140-450); Red Blood Cells 3.68 10^6/uL (4.0-5.20); Red Cell Distribution Width 14.6 % (11.8-14.3); White Blood Cell 9.2 10^3/uL (4.4-10.8)
[2020-02-22 11:58] LABS: INR 1.06 (0.9-1.15); Partial Thromboplastin Time 28.1 sec (23.0-31.2)
[2020-02-22 12:04] LABS: Albumin 1.7 g/dL (3.4-5.0); Potassium 3.7 mmol/L (3.5-5.1)
[2020-02-22 12:08] LABS: BUN/Creatinine Ratio 15.6; Bilirubin, Total 0.5 mg/dL (0.2-1.0); Total Protein 6.7 g/dL (6.4-8.2)
[2020-02-22 13:00] VITALS: BP 105/68
--- NOTE | 2020-02-22 13:51 | NUR ---
FOUNDRY SUPERVISOR WILL ASSIGN A [facility] BED SOON ONE IS AVAILABLE.
[2020-02-22 17:00] VITALS: BP 109/69
--- NOTE | 2020-02-22 18:51 | NUR ---
IV START TO RIGHT UPPER CHEST #22 PT IV TO RIGHT WRIST REMOVED WITH CATHETER INTACT S/P SWELLING NOTED AROUND SITE ON FLUSH AND MEDICATION ADMINISTRATION.
--- NOTE | 2020-02-22 19:50 | NUR ---
Opening Shift Note Assumed care of patient, awake and alert A/O x 4. No S/S of distress/SOB or pain. Bed lowered and locked side rails up x 2 call light and bedside table are within reach. Tele number matches Pt and all leads in position. Instructed on POC and to call for assist PRN, will continue to monitor for changes Q1hr and PRN.
[2020-02-22 22:00] VITALS: BP 115/75
[2020-02-22] MEDS: ATORVASTATIN 20 MG TAB PO SCH (23:05)
[2020-02-22] MEDS: TOPIRAMATE 100 MG TAB PO SCH (23:06)
[2020-02-23] VITALS (46 sets, daily range): BP systolic 63–143; BP diastolic 44–81
[2020-02-23] MEDS: ALBUTEROL SULF 2.5 MG/0.5ML(0.5%) NEB SOLN NEB SCH ×4 (00:36→18:23)
[2020-02-23] MEDS: guaiFENesin 200 MG/10 ML UD PO PRN (03:29)
--- NOTE | 2020-02-23 03:41 | NUR ---
Report received from primary RN Chester. Patient is to be transferred to [facility].
--- NOTE | 2020-02-23 03:41 | NUR ---
Report given to DEMARCO Kilgore. Patient to be transferred to [facility], room 262.
[2020-02-23] MEDS: HYDROmorphone HCL 2 MG/ML VL IV PRN (03:46)
[2020-02-23 04:01] LABS: Urine Bacteria NONE SEEN /hpf (None Seen); Urine Blood Negative /uL (Negative); Urine Mucus FEW (None Seen); Urine Specific Gravity 1.016 (1.001-1.035); Urine WBC 5 /hpf (0 - 5)
--- NOTE | 2020-02-23 04:02 | NUR ---
Patient arrived to [facility] with no incident. CHG bath given to patient for procedure prep. Second IV started to left hand, 22g on first attempt. Patient tolerated intervention well with no s/s of discomfort or distress.
--- NOTE | 2020-02-23 04:02 | NUR ---
Patient transferred to [facility], room 262. DEMARCO Kilgore assuming care for patient. Patient alert and oriented x 4 but drowsy. Patient on 5 l/min NC.
[2020-02-23] MEDS: GABAPENTIN 300 MG CAP PO SCH ×3 (04:37→22:44)
[2020-02-23] MEDS: CLINDAMYCIN 600MG IV 50 ML IV SCH ×3 (05:04→22:43)
[2020-02-23 05:17] LABS: BUN/Creatinine Ratio 21.9; Calcium 7.8 mg/dL (8.5-10.1); Potassium 3.7 mmol/L (3.5-5.1)
--- NOTE | 2020-02-23 06:30 | NUR ---
OR team: RN received call from OR team asking for patient to be taken to pre-op before 0700. RN took patient down to OR via ACLS protocol. Patient tolerated transfer well with no incident.
[2020-02-23] MEDS ORDERED: POVIDONE IODINE 10 % TOPICAL OINT 30GM TOP ONE (06:54)
[2020-02-23] MEDS ORDERED: MIDAZOLAM HCL 1MG/1ML-2 ML VIAL ONE (07:01)
[2020-02-23] MEDS ORDERED: fentaNYL CITRATE 100 MCG/2 ML VL ONE (07:01)
[2020-02-23] MEDS ORDERED: GLYCOPYRROLATE 0.2 MG/ML 1ML VIAL ONE (07:02)
[2020-02-23] MEDS ORDERED: ETOMIDATE (2MG/ML) 20ML VIAL IV ONE (07:02)
[2020-02-23] MEDS ORDERED: DexAMETHasone SOD PHOS 10MG/1ML VIAL INJ ONE (07:02)
[2020-02-23] MEDS ORDERED: ONDANSETRON HCL 4 MG/2 ML VIAL ONE (07:02)
[2020-02-23] MEDS ORDERED: ePHEDrine SULFATE 50 MG/ML AMP ONE (07:02)
[2020-02-23] MEDS ORDERED: PROPOFOL 10 MG/ML 20 ML IV ONE (07:02)
[2020-02-23] MEDS ORDERED: LIDOCAINE 2% (LOCAL ANESTH.) PF 5ml SDV ONE (07:02)
[2020-02-23] MEDS ORDERED: PHENYLEPHRINE HCL 10 MG/ML VL ONE (07:02)
[2020-02-23] MEDS ORDERED: ROCURONIUM 10MG/ML 10ML VIAL IV ONE (07:17)
[2020-02-23 07:28] LABS: Basophils # (auto) 0 10 ^3/uL (0-0.2); Eosinophils # (auto) 0.2 10 ^3/uL (0-0.8); Hematocrit 33.2 % (36.0-46.0); Lymphocytes # (auto) 1.6 10 ^3/uL (0.4-5.4); Monocytes # (auto) 0.8 10 ^3/uL (0-1.3); Nucleated Red Blood Cells % 0.1 %
[2020-02-23 07:31] LABS: Basophils % (auto) 0.3 % (0.0-2.0); Eosinophils % (auto) 2.2 % (0.0-7.0); Hemoglobin 10.6 g/dL (12.2-16.2); Mean Corpuscular Hemoglobin 30.2 pg (28.0-32.0); Mean Corpuscular Volume 94.3 fL (80.0-100.0); Monocytes % (auto) 7.8 % (0.0-12.0); Neutrophils # (auto) 7.8 10 ^3/uL (1.6-8.6); Neutrophils % (auto) 74.7 % (37.0-80.0); Platelet Count (auto) 655 10^3/uL (140-450); Red Blood Cells 3.52 10^6/uL (4.0-5.20); Red Cell Distribution Width 14.7 % (11.8-14.3); White Blood Cell 10.5 10^3/uL (4.4-10.8)
[2020-02-23] MEDS ORDERED: fentaNYL CITRATE 5 ML ONE (07:53)
[2020-02-23] MEDS: FERROUS SULFATE 325 MG TAB PO SCH ×2 (08:00→18:16)
--- NOTE | 2020-02-23 08:00 | NUR ---
Patient in OR.
[2020-02-23] MEDS ORDERED: HYDROmorphone HCL 2 MG/ML VL IV PRN (08:45)
[2020-02-23] MEDS: fentaNYL Drip 2500mCg/250mlNS 250 ML IV SCH (08:45)
[2020-02-23] MEDS ORDERED: ACCU-CHEK COMFORT CURVE STRIP VI ONE (08:45)
--- NOTE | 2020-02-23 09:25 | NUR ---
Patient still in OR and got upgrade to ICU, unable to assess patient at 8.00am, will give report to TRUCK JUMPER.
[2020-02-23] MEDS: BENAZEPRIL HCL 10 MG TAB PO SCH (10:00)
[2020-02-23] MEDS: PANTOPRAZOLE 40 MG TAB PO SCH (10:00)
--- NOTE | 2020-02-23 10:10 | NUR ---
RT Transport Note: Patient transported to {ICU 106} with RN {BART}. Patient transported to and from procedure on ventilator with previous ordered settings. Patient on surgery scheduling coordinator with alarms set and audible, ambu-bag/mask connected to 02 tank. Patient returned to room with no adverse reaction noted. Transport completed without incident.
--- NOTE | 2020-02-23 10:25 | NUR ---
RECEIVED PT FROM RECOVERY S/P CT PLACEMENT FOR RT PNEUMOTHORAX. PT HAS A CT TO RT UPPER LUNG DRAINING SEROSANGUINEOUS FLUID. NO CREPITUS OR AIR LEAK AT CT INSERTION SITE. X-RAY SHOWS A LG PNEUMO. (DR. ROLLINS ) AWARE. PT CURRENTLY INTUBATED OXYGENATING WELL ON VENTILATOR , SEDATED ON FENTANYL AT 125 MCG/HR AND VERSED AT 5MH/HR. LS WITH RH AND DIMINISHED ON THE BASES. PT HAS COPIOUS CLEAR SECRETIONS THROUGH ETT. PT HAS A ST ON COCCYX AND BLANCHABLE REDNESS ON BOTH ELBOWS PT BEING REPOSITION Q 2 HRS. ORAL CARE RENDERED PER VAP PROTOCOL.
[2020-02-23] MEDS: levoFLOXacin 500MG 100 ML IV SCH (10:55)
[2020-02-23] MEDS ORDERED: SODIUM CHLORIDE 0.9% 500 ML IV ONE (11:45)
[2020-02-23] MEDS ORDERED: PANTOPRAZOLE 40 MG/10 ML VIAL INJ IV ONE (11:45)
--- NOTE | 2020-02-23 12:00 | NUR ---
DR. ROLLINS ROUNDING ON PT. I UPDATED HER ON PT'S CONDITION AND I NOTIFIED HER ON PT'S SPOUSE NEEDING TO BE UPDATED BY MD. MD CALLED PT'S SPOUSE AND UPDATED ON PT'S CURRENT CONDITION INCLUDING THAT SHE CODED IN OR DURING INDUCTION OF ANESTHESIA.
[2020-02-23] MEDS: D5W/SOD CHLO 0.9% 1,000 ML IV SCH ×2 (12:50→23:04)
[2020-02-23] MEDS: MIDAZOLAM DRIP 50 mg/50mL 50 ML IV SCH (14:26)
--- NOTE | 2020-02-23 16:00 | NUR ---
REPOSITIONED FOR COMFORT. NGT INSERTED ON LT NARE. NEW IV ACCESS OBTAINED ON LT FA 20 #.
--- NOTE | 2020-02-23 16:35 | NUR ---
assessment Patient is a 49 year old female who is in ICU on a vent. Per patients Jame [phone] prior to admission patient lived home with him and was independent. Patient had no need for DME. Patients PCP is was Dr Singh in [place]. Per Jame patient was having a cough and shortness of breath for over a week so she came to ER and was admitted. Patient had a thoracotomy today and was transferred to ICU on a Vent. I informed Jame that patients post discharge needs to be determined after extubation and prior to discharge. I informed Jame I will continue to monitor and follow up as appropriate for any post discharge needs. Jame verbalized understanding. Addendum: 02/23/20 at 1641 by Mary GIFFORD Amended: Links added.
--- NOTE | 2020-02-23 19:00 | NUR ---
REPORT GIVEN TO ONCOMING SHIFT. RT RADIAL JOSÉ REMAINS BENIGN.
--- NOTE | 2020-02-23 19:45 | NUR ---
Opening Shift Note Received shift Report and Assumed care of patient, patient is resting quietly in bed patient is sedated with versed 5 and fentanyl 125 and is currently Vented AC 16 Vt 450 FIO2 40% Peep 5. Patient has a newly placed chest tube 02/22 set to Low Continuos Suction, with serosanguineous drainage, no signs of crepitus or air leak, with dressing intact. Patient has an ART line that has been zeroed
--- NOTE | 2020-02-23 21:20 | NUR ---
Patient Cleaned Patient found to have a small hard dark colored BM, patient clean and partial bed change performed, patient repositioned extremities placed in anatomically correct position, patient remains vented AC 16 Vt 450 FIO2 40% Peep 5.
[2020-02-23] MEDS: TOPIRAMATE 100 MG TAB PO SCH (22:00)
--- NOTE | 2020-02-23 22:10 | NUR ---
Sedation Titrated patient BP is 88/51 Versed decreased to 4 Fentynl decreased to 100
[2020-02-23] MEDS: ATORVASTATIN 20 MG TAB PO SCH (22:44)
--- NOTE | 2020-02-23 23:00 | NUR ---
BP Re-Evaluated patient BP is now 97/59 will continue with Versed of 4 and Fentanyl 100
[2020-02-24] VITALS (97 sets, daily range): BP systolic 54–150; BP diastolic 33–285
--- NOTE | 2020-02-24 | NUR ---
Elevated Temp Temp 99.1 performed cooling measures blankets removed room cooled, patient c/o of generalized body pain 01/20 patient medicated per MD orders. Addendum: 02/24/20 at 0024 by ANNIE MORRIS RN RN Disregard charted on wrong patient
--- NOTE | 2020-02-24 00:10 | NUR ---
Temp Elevated Temp 99.8 performed cooling measures, blankets removed and room Temp Cooled.
[2020-02-24] MEDS: ALBUTEROL SULF 2.5 MG/0.5ML(0.5%) NEB SOLN NEB SCH ×4 (00:17→18:23)
[2020-02-24] MEDS: fentaNYL Drip 2500mCg/250mlNS 250 ML IV SCH (01:55)
--- NOTE | 2020-02-24 02:00 | NUR ---
Temp Re-evaluated Patient Temp is now 99.0 will continue to utilize cooling measures and monitor.
[2020-02-24] MEDS: MIDAZOLAM DRIP 50 mg/50mL 50 ML IV SCH ×2 (02:18→14:49)
--- NOTE | 2020-02-24 03:30 | NUR ---
Morning Care Patient found to have a small, hard dark colored BM, Patient given a CHG bed bath, patient provided clean gown, partial linen change, IV site to chest dressing change, Opti-foam change to coccyx and bilateral elbows, suction canisters and tubing replaced, irrigation tray replaced, patient repositioned with all extremities in anatomically correct position.
[2020-02-24 04:03] LABS: Basophils # (auto) 0 10 ^3/uL (0-0.2); Basophils % (auto) 0.2 % (0.0-2.0); Eosinophils # (auto) 0.4 10 ^3/uL (0-0.8); Eosinophils % (auto) 3.9 % (0.0-7.0); Hematocrit 36.4 % (36.0-46.0); Lymphocytes # (auto) 2.1 10 ^3/uL (0.4-5.4); Lymphocytes % (auto) 21.3 % (10.0-50.0); Mean Corpuscular Hemoglobin 30.8 pg (28.0-32.0); Mean Corpuscular Hgb Conc. 30.3 g/dL (32.0-36.0); Mean Corpuscular Volume 101.7 fL (80.0-100.0); Monocytes % (auto) 9.8 % (0.0-12.0); Neutrophils # (auto) 6.4 10 ^3/uL (1.6-8.6); Neutrophils % (auto) 64.8 % (37.0-80.0); Nucleated Red Blood Cells % 0.1 %; Platelet Count (auto) 589 10^3/uL (140-450); Red Blood Cells 3.58 10^6/uL (4.0-5.20); Red Cell Distribution Width 16.5 % (11.8-14.3); White Blood Cell 9.8 10^3/uL (4.4-10.8)
[2020-02-24 04:18] LABS: BUN/Creatinine Ratio 16.7; Calcium 7.6 mg/dL (8.5-10.1); Potassium 3.7 mmol/L (3.5-5.1)
[2020-02-24] MEDS: CLINDAMYCIN 600MG IV 50 ML IV SCH ×3 (06:02→22:24)
[2020-02-24] MEDS: GABAPENTIN 300 MG CAP PO SCH ×3 (06:31→22:24)
--- NOTE | 2020-02-24 07:10 | NUR ---
End Shift Report Provided shift report and endorsed care, patient remains on vent AC 16 FIO2 40% Vt 450 Peep 5, patient is sedated with versed 4, Fentanyl 100, patient has a chest to to the right chest to Low Continuous Suction. at time through out the shift patient has low BP in the 80's and breathing over the vent by one -two breaths.
--- NOTE | 2020-02-24 08:00 | NUR ---
REMAINS INTUBATED SEDATED, EASILY AROUSABLE WITH ADLS. VIRK. PT TRIES REACHING FOR ETT, HAS MITTENS ON BUE FOR SAFETY. LUNG SOUNDS WITH EXPIRATORY WHEEZING, CT ON RT ANTERIOR UPPER LOBE TO 20 CM OF - WATER PRESSURE TO LCS. DRAINING SEROUS FLUID, NO AIR LEAKAGE A T CT INSERTION SITE, NO CREPITUS NOTED ON CHEST NO AIR BUBBLES AIR SEAL CHAMBER . ORAL CARE PROVIDED PER VAP PROTOCOL, SKIN ASSESSED PT HAD A SMALL HARD BM, SKIN CARE RENDERED REPOSITIONED FOR COMFORT WITH DEMARCO SALAS'S ASSISTANCE. ALL ALARMS VERIFIED. ALL ALARMS VERIFIED.
--- NOTE | 2020-02-24 08:56 | NUR ---
PAGED DR. VIGIL TO SEE IF THE ROUTE OF IRON CAN BE SWITCHED TO VIA NGT SINCE PILL IS ENTERIC COATED AND SHOULD NOT BE CRUSHED OR IV ROUTE.
--- NOTE | 2020-02-24 08:59 | NUR ---
RT VAISHALI DECREASED FIO2 TO 35%.
--- NOTE | 2020-02-24 09:09 | NUR ---
DR. VIGIL CALLED BACK NEW ORDERS RECEIVED TO CHANGE THE IRON TO LIQUID FORM.
[2020-02-24] MEDS ORDERED: FERROUS SULFATE 300 MG/5 ML ORAL LIQ GT ONE (09:15)
--- NOTE | 2020-02-24 09:26 | NUR ---
DR. ROLLINS CALLED SHE WANTS TO DO A BRONCHOSCOPY AT 10:30 OR [address] LEIA MD WANTS TO DO THE ETT EXCHANGE 1ST. I CALLED RT VAISHALI TO NOTIFIED HER. SHE IS AWARE. I CALLED SCENE SHIFTER, SHE IS AWARE. SEISMOGRAPHERDEMARCO PATEL IS AWARE. I'LL CALL PT'S SPOUSE TO OBTAIN TELEPHONE CONSENT.
[2020-02-24] MEDS ORDERED: FUROSEMIDE 20 MG/2 ML VIAL IV ONE ×2 (09:30→14:15)
[2020-02-24] MEDS ORDERED: ACETYLCYSTEINE 20%(200MG/ML) SOL 4ML NEB SCH (09:45)
--- NOTE | 2020-02-24 09:47 | NUR ---
CONSENT OBTAINED FOR BRONCHOSCOPY FROM PT'S SPOUSE TRISTAN. UPDATED ON PT'S CURRENT HEALTH CONDITION, EDUCATED ON BRONCHOSCOPY NECESSITY. HE STATES PT HAS HAD ON IN THE PAST. ALL QUESTIONS ANSWERED.
[2020-02-24] MEDS: BENAZEPRIL HCL 10 MG TAB PO SCH (10:00)
[2020-02-24] MEDS: FERROUS SULFATE 300 MG/5 ML ORAL LIQ GT SCH ×2 (10:00→22:23)
[2020-02-24] MEDS: PANTOPRAZOLE 40 MG/10 ML VIAL INJ IV SCH (10:39)
[2020-02-24] MEDS: levoFLOXacin 500MG 100 ML IV SCH (10:40)
--- NOTE | 2020-02-24 11:15 | NUR ---
Respiratory note: ETT CHANGED TO 8.0 SECURED AT 24 CM AT THE LIP. PT PRE OXYGENATED WITH 100% FI02. ETT CHANGED WITHOUT INCIDENT ON FIRST ATTEMPT AND PLACED BACK ON VENT.
[2020-02-24] MEDS ORDERED: LIDOCAINE 2%HCL (LOCAL ANESTH.) INJ 20ML MDV ONE (11:16)
[2020-02-24] MEDS ORDERED: EPINEPHrine HCL 1 MG/1 ML AMP ONE (11:17)
[2020-02-24] MEDS ORDERED: SODIUM CHLORIDE LOCK 0 ML ONE (11:17)
[2020-02-24] MEDS ORDERED: LIDOCAINE HCL 2% TOP JELLY 5ML TOP ONE (11:17)
[2020-02-24] MEDS ORDERED: SODIUM CHLORIDE 0.9% 500 ML IV ONE (11:30)
[2020-02-24] MEDS: NOREPINEPHRINE 8 MG/250ML KIT 250 ML IV SCH (12:18)
--- NOTE | 2020-02-24 12:18 | NUR ---
Nutrition Followup Notes Pt wt is 56.9 kg Pt is intubated, sedated when rounded this morning. Pt is NPO with no diet order yet. Pt with no s/s of distress per RN doc. Est energy needs: 7544-4512 kcals (25-30 kcals/kgBW) Est protein needs: 48-60 gms/day (0.8-1.0 g/kgBW) Will continue to reassess prn LABS: Ca 7.6 L, Alb 1.7 L GI: Pt had 4 BM on 02/23 per RN doc BS: 16 mod risk. Refer to wound assessment report for full details. PES: Altered nutrition related lab values r/t current/chronic medical condition aeb hypoglycemia, severe hypoalbuminemia Comments Will continue to monitor PO status, skin status, pertinent labs and weight trends. Will f/u in 2-3 days. 1) Continue to carefully monitor pt NPO status 2) If pt remains NPO for the next 48 hours, consider EN nutrition support Glucerna 1.2 @ 60ml/hr goal rate as tolerated and per MD approval 3) Gradually advance pt to oral CCHO 60g diet when medically feasible and as tolerated 4) Refer pt to RD for nutrition education upon D/C 5) Continue current plan of care
--- NOTE | 2020-02-24 12:30 | NUR ---
NOTIFIED DR. ROLLINS THAT PT HAS A LOT OF PULMONARY EMPHESEMA ON ANTERIOR CHEST NOTED ON CHEST X-RAY THAT WAS TAKEN TO CHECK ETT PLACEMENT. ANTERIOR CHEST PALPATED FRANCISCO JAVIER CREPITUS CAN BE FELT ALL OVER ANTERIOR CHEST AND POSTERIOR SHOULDER. REPLIED THAT SHE IS NOT SURPRISED. Addendum: 02/24/20 at 2138 by HARRIET MCKEON RN PT HAS A LOT OF SUBCUTANEOUS EMPHYSEMA
--- NOTE | 2020-02-24 14:00 | NUR ---
DR. ROLLINS CALLED TO INFORM RN JOSUE THAT CHEST X-RAY LOOKS BETTER PT'S RT. PNEUMOTHORAX IS IMPROVING, SHE IS AWARE OF PT'S SUBCUTANEOUS EMPHYSEMA, AND RX LASIX. ( MESSAGE LEFT WHILE I WAS AT LUNCH)
--- NOTE | 2020-02-24 14:16 | NUR ---
MEDICATED WITH 20 MG OF LASIX IVP.
--- NOTE | 2020-02-24 16:11 | NUR ---
PICC LINE SPOKE WITH PRIMARY RN DEANN REGARDING PICC LINE ORDER. LET HER KNOW THAT WHEN THE NEW COAGULATIONS COME BACK AND THE CONSENTS ARE SIGNED BY THE PHYSICIAN AND FAMILY THAT I HAVE A NURSE DIAGRAMMER AND SEAMER TO COME IN IF NEEDED AND TO LET THE [employer]CHO[employer] COACH KNOW TO CALL IN THE DIAGRAMMER AND SEAMER PICC NURSE.
--- NOTE | 2020-02-24 16:43 | NUR ---
SPOKE WITH DR. ROLLINS REGARDING PICC LINE CONSENT THAT DR. DUPREE ORDERED FOR TPN. MD OK WITH SIGNING CONSENT FOR PT LONG PRIMARY MD OK WITH PICC LINE INSERTION. I PAGED DR. VIGIL TO VERIFY THAT SHE IS OK WITH PT GETTING A PICC LINE FOR TPN PER DR. DUPREE AND DR ROLLINS.
--- NOTE | 2020-02-24 17:08 | NUR ---
CONSENT FOR PICC SIGNED BY DR. ROLLINS AFTER GETTING THE OK BY DR. VIGIL. PT'S SPOUSE GAVE TELEPHONE CONSENT FOR PICC LINE. CONSENT WITNESS BY DEMARCO REYES. PTT LABS DRAWN THROUGH A- LINE AND SENT TO LAB. PT REMAINS ON LEVOPHED AT 6 MCG/MIN TO KEEP SBP ABOVE 90.
[2020-02-24 17:43] LABS: INR 1.08 (0.9-1.15); Partial Thromboplastin Time 26.5 sec (23.0-31.2)
--- NOTE | 2020-02-24 18:00 | NUR ---
PT DIURESED A TOTAL 0F 1600 CLEAR YELLOW URINE WITH LASIX. NO NEED TO READJUST LEVOPHED.
--- NOTE | 2020-02-24 18:30 | NUR ---
CT, LEAKED AT CT INSERTION SITE, DRESSING CHANGED USING A STERILE TECHNIQUE, APPLIED PETROLEUM JESSIE TO ASSURE AN OCCLUSIVE INSERTION SITE, NO AIR BUBBLES NOTED AT CT SEAL CHAMBER.
--- NOTE | 2020-02-24 19:55 | NUR ---
ADMITTED WITH PRODUCTIVE COUGH AND DYSPNEA. WENT FROM TELE TO [facility] TO OR (02/22). AFTER INDUCTION, PATIENT CODED RECEIVING EPI X 2. AFTER ROSC, THE PATIENT UNDERWENT SURGERY BY DR DUPREE. NEW # 40 CHEST TUBE PLACED. RIGHT RADIAL ARTERIAL LINE . 02/[address] ROLLINS. LABS SENT. COAGS DONE. PICC LINE RN HERE TO PLACE IV. ADDED LEVOPHED TODAY WHEN THEY INCREASED THE SEDATION FOR THE BRONCH. NOW ON LEVOPHED AT 6 MCG. SEDATION : FENTANYL 100 AND VERSED AT 4. LARGER URINE OUTPUT TODAY AFTER LASIX 20 IV GIVEN. AFTER BRONCH PATIENT DEVELOPED A LARGE AMOUNT OF CREPITUS THROUGHOUT THE THORACIC REGION. CHEST TUBE DRESSING CHANGED AT 1800 AFTER PREVIOUS RN FOUND IT LEAKING. MITTENS ON PATIENT. ETT EXCHANGED TODAY DURING BRONCH FROM A SIZE 6.[address] ROLLINS.
[2020-02-24] MEDS ORDERED: TPN PER PHARMACY 0 ML IV SCH (20:00)
[2020-02-24] MEDS ORDERED: CLINIMIX PER PHARMACY IV NR (20:00)
[2020-02-24 21:17] LABS: Albumin 1.3 g/dL (3.4-5.0); Calcium 7.3 mg/dL (8.5-10.1); Magnesium 1.9 mg/dL (1.6-2.6)
[2020-02-24 21:21] LABS: BUN/Creatinine Ratio 14.3; Bilirubin, Total 0.3 mg/dL (0.2-1.0); Phosphorus 2.2 mg/dL (2.5-4.90); Pre Albumin 4.8 mg/dL (20.0-40.0); Total Protein 5.6 g/dL (6.4-8.2)
[2020-02-24 21:26] LABS: Potassium 2.9 mmol/L (3.5-5.1)
--- NOTE | 2020-02-24 21:27 | NUR ---
YURIY PICC LINE PLACED. CXR ORDERED BY DEMARCO GARY PICC NURSE. POTASSIUM 2.9 . HOSPITIALIST PAGED.
--- NOTE | 2020-02-24 21:39 | NUR ---
PICC line placement Patient significant other educated on need for PICC line placement. All risks and benefits explained and all questions and concerns addressed prior to procedure. Noted past medical history and allergies with no contraindications. INR and Plt counts within acceptable range. 5fr PICC line inserted via left basilic vein using I-DIS[employer]'s [employer] US and Tip Location System. Sterile technique with maximum barrier precautions utilized. Blood return obtained from each of 3 lumens and each flushed easily with NS using proper technique. PICC secured with Stat-lock; biodisc and occlusive dressing applied. Stat portable chest x-ray obtained for PICC tip placement. *Baseline Arm Circumference 23cm. PICC lot #[id number]. INTERNAL LENGTH 44CM EXTERNAL LENGTH 0CM
[2020-02-24] MEDS: TOPIRAMATE 100 MG TAB PO SCH (22:00)
[2020-02-24] MEDS: SODIUM CHLOR 0.9% PF (SALINE LOCK) 10ML VIAL/SYR IV SCH (22:24)
[2020-02-24] MEDS: ATORVASTATIN 20 MG TAB PO SCH (22:24)
--- NOTE | 2020-02-24 22:25 | NUR ---
SPOKE WITH PHARMACY. THEY ARE WRITING FOR POTASSIUM REPLACEMENT AND KPHOS REPLACEMENT. CXR HAS NOT BEEN READ YET POST PICC INE INSERTION.
[2020-02-24] MEDS ORDERED: POTASSIUM PHOSPHATE 44 MEQ in D5W 5% 250 ML IV ONE (22:30)
[2020-02-24] MEDS ORDERED: POTASSIUM CHL 20MEQ/100ML 200 ML IV ONE (22:50)
--- NOTE | 2020-02-24 22:53 | NUR ---
SPOKE WITH PHARMACY AGAIN. SHE WANTS JUST THE [facility] FOR NOW,NO [facility].
--- NOTE | 2020-02-24 22:57 | NUR ---
RADIOLOGY REPORT STATES THE PICC LINE IS OK TO USE.
[2020-02-25] VITALS (107 sets, daily range): BP systolic 86–167; BP diastolic 41–92
[2020-02-25] MEDS: fentaNYL Drip 2500mCg/250mlNS 250 ML IV SCH
[2020-02-25] MEDS ORDERED: DEXTROSE (50%) 50ML SYRG IV SCH
--- NOTE | 2020-02-25 | NUR ---
SWITCHED ALL IV DRIPS TO THE PICC LINE. INCREASED SEDATION BECAUSE THE PATIENT WAS THROWING HER LEGS AROUND AND TRYING TO SIT UP. NSR WITHOUT ECTOPY. LUNGS CLEAR. ORAL CAVITY : LARGE AMOUNT OF CLEAR/CLOUDY SECRETIONS. ABDOMEN SOFT. VERY LITTLE SUCTIONED FROM THE ETT. MCGRAW OUTPUT AVERAGE. CHEST TUBE OUTPUT MINIMAL. CHEST TUBE OUTPUT IS WATERY SEROUS IN COLOR. SUBQ EMPHYSEMA CONTINUES THROUGHOUT THE THORAX. MOVES EXTREMITIES. + COUGH AND GAG.
[2020-02-25] MEDS: ALBUTEROL SULF 2.5 MG/0.5ML(0.5%) NEB SOLN NEB SCH ×5 (00:22→23:59)
[2020-02-25] MEDS: MIDAZOLAM DRIP 50 mg/50mL 50 ML IV SCH ×3 (02:00→23:02)
--- NOTE | 2020-02-25 02:00 | NUR ---
ORAL CARE. REPOSITIONED. SUCTIONED THE ETT . NO SECRETIONS. ABDOMEN SOFT. NSR WITHOUT ECTOPY.TEMP IS NORMAL
--- NOTE | 2020-02-25 03:50 | NUR ---
KALEB BRISENO FOR HIGH BLOOD PRESSURE. Addendum: 02/25/20 at 0414 by ROBERT LANDRY RN WRONG PATIENT
--- NOTE | 2020-02-25 04:00 | NUR ---
ORAL CARE. SUCTIONED ETT . NO SECRETIONS. NSR WITHOUT ECTOPY. LEVOPHED OFF. SBP 132.
[2020-02-25] MEDS: GABAPENTIN 300 MG CAP PO SCH ×3 (05:31→22:27)
[2020-02-25] MEDS: CLINDAMYCIN 600MG IV 50 ML IV SCH ×2 (05:32→13:24)
[2020-02-25] MEDS: InsuLIN REG 1unit/0.01ml Soln (100units/ml) SC SCH ×4 (06:00→18:00)
[2020-02-25] MEDS: ACCU-CHEK COMFORT CURVE STRIP VI SCH ×4 (06:00→18:37)
--- NOTE | 2020-02-25 06:49 | NUR ---
AM LABS DONE.
[2020-02-25 07:05] LABS: Potassium 3.4 mmol/L (3.5-5.1)
[2020-02-25 07:12] LABS: Albumin 1.2 g/dL (3.4-5.0); BUN/Creatinine Ratio 22.7; Bilirubin, Total 0.3 mg/dL (0.2-1.0); Calcium 7.2 mg/dL (8.5-10.1); Magnesium 2.1 mg/dL (1.6-2.6); Phosphorus 3.4 mg/dL (2.5-4.90); Total Protein 5.3 g/dL (6.4-8.2)
--- NOTE | 2020-02-25 07:15 | NUR ---
Assumed care of pt., report received per DEMARCO Valladares. No distress noted, pt. intubated and vented, tolerating settings, reading sinus rhythm, will cont.to monitor for any changes, assessment ongoing.
[2020-02-25] MEDS: POTASSIUM CHL 20MEQ/100ML 100 ML IV SCH ×2 (08:10→09:58)
[2020-02-25] MEDS: BENAZEPRIL HCL 10 MG TAB PO SCH (10:00)
[2020-02-25] MEDS: PANTOPRAZOLE 40 MG/10 ML VIAL INJ IV SCH (10:06)
[2020-02-25] MEDS: levoFLOXacin 500MG 100 ML IV SCH (10:07)
[2020-02-25] MEDS: SODIUM CHLOR 0.9% PF (SALINE LOCK) 10ML VIAL/SYR IV SCH ×2 (10:07→22:27)
[2020-02-25] MEDS: FERROUS SULFATE 300 MG/5 ML ORAL LIQ GT SCH ×2 (10:07→22:27)
[2020-02-25] MEDS: NOREPINEPHRINE 8 MG/250ML KIT 250 ML IV SCH (11:23)
--- NOTE | 2020-02-25 11:40 | NUR ---
WOUND CARE NOTE: Added patient to wound care monitoring list due to intubation status and skin issue that are noted upon assessment. Bedside nurse took photograph of patient's skin issue for reference. Patient is 49 years old female with admitting diagnosis of Pneumonia. Patient is resting in ICU low air loss bed in Rm. 106. Patient is intubated, lightly sedated and mechanically ventilated. Patient is on C Pap trial at this time. Patient appears to be in no pain using Tijerina Esparza Faces Pain Scale. Skin assessment done with the assistance of patient's nurse, DEMARCO Alonzo. Patient's Rt and left elbow noted with intact pink collagen scar tissue, staff applied protective Opti foam gentle to patient's elbow. 1x0.5cm dry, scabbed resolving skin tear noted to patient's coccyx. Surrounding skin is intact, pink and blanchable. Anna care given, applied Z Guard cream and covered coccyx skin tear with Opti foam gentle dressing per a MD order. Patient's Rt lateral chest/ rib cage area, chest tube sites has C/D/I occlusive dressing. Repositioned patient for comfort facing her Rt. side, redistributed pressure points with pillows. Patient tolerated well, DEMARCO Alonzo at bedside. RECOMMENDATION: Nursing to continue with BID/PRN cleaning and application of Barrier cream to sacral, buttocks per MD order, frequent turning and repositioning schedule as condition permits, redistribute pressure points with pillows, elevate heels on pillows, continue monitoring by wound care while patient is intubated. Addendum: 02/25/20 at 1628 by Perla Garibay RN Amended: Links added.
--- NOTE | 2020-02-25 12:15 | NUR ---
FAILED CPAP TRIAL PT WAS OPENING EYES AND TRYING TO GET UP IN BED. INITIATED CPAP TRIAL ORDERED. PT ONLY TOLERATED 2 MINUTES WITH LOW VT 100-200ML, AND FAILED CPAP DUE TO TACHYCARDIA, INCREASED BP, AND O2 DESAT TO 85%. PT STILL ATTEMPTING TO GET OUT OF BED. TERMINATED CPAP TRIAL AND PLACED BACK ON AC MODE WITH PREVIOUS SETTINGS. RN AT BEDSIDE TO INCREASE PT SEDATION. PT NOW WITH VITAL SIGNS STABLE, NO S/S OF DISTRESS.
--- NOTE | 2020-02-25 12:22 | NUR ---
pt. required to return to previous sedation settings d/t failure of CPAP trails, pt. became tachycardic, tachypneic, hypertensive, and lost volumes on CPAP mode, will cont.to monitor for any changes, assessment ongoing.
--- NOTE | 2020-02-25 14:43 | NUR ---
Nutrition Followup Notes Pt wt is 53.2 kg Pt is intubated, sedated per RN note. Pt is s/p failing CPAP trial requiring pt to be put back on previous sedation. Pt is NPO with no diet order yet. Pt is with a TPN order at 45 ml/hr to provide 1150 kcal, 50g protein and 950 NPCs. This provides 64-77% of energy needs and 83-100% of protein needs Est energy needs: 7762-1232 kcals (25-30 kcals/kgBW) Est protein needs: 48-60 gms/day (0.8-1.0 g/kgBW) Will continue to reassess prn LABS: Creat 0.22L, Alb 1.2L, Ca 7.2L, Gluc 140H GI: Pt had 1 BM on 02/24 per RN doc BS: 16 mod risk. Refer to wound assessment report for full details. PES: Altered nutrition related lab values r/t current/chronic medical condition aeb hypoglycemia, severe hypoalbuminemia Comments Will continue to monitor PO status, skin status, pertinent labs and weight trends. Will f/u in 2-3 days. 1)Continue to advance TPN to meet >75% of needs 2) If pt GI is accessible, consider EN nutrition support Glucerna 1.2 @ 60ml/hr goal rate as tolerated and per MD approval 3) Gradually advance pt to oral CCHO 60g diet when medically feasible and as tolerated 4) Refer pt to RD for nutrition education upon D/C 5) Continue current plan of care
--- NOTE | 2020-02-25 17:57 | NUR ---
Received phone call from LAB stating pt. has pseudomonas in sputum and current ABX is ineffective, Dr. Villanueva called and notified, new orders received and will be implemented immediately, will cont.to monitor for any changes, assessment ongoing. Addendum: 02/25/20 at 1828 by PAULA BECK RN RN Dr. Timo Villanueva
[2020-02-25] MEDS ORDERED: PIPERACILLIN-TAZOB 3.375GM 100 ML IV SCH (18:00)
--- NOTE | 2020-02-25 19:17 | NUR ---
No distress noted, pt. report given to DEMARCO Valladares. Care of pt. assumed per NOC shift, day shift relinquished care and signed off.
--- NOTE | 2020-02-25 19:37 | NUR ---
ADMITTED WITH PRODUCTIVE COUGH AND DYSPNEA. WENT FROM TELE TO [facility] TO OR (02/22). AFTER INDUCTION, PATIENT CODED RECEIVING EPI X 2. AFTER ROSC, THE PATIENT UNDERWENT SURGERY BY DR DUPREE. NEW # 40 CHEST TUBE PLACED. RIGHT RADIAL ARTERIAL LINE . 02/[address] [facility] ROLLINS. LABS SENT. PENDING TESTS FROM THE [facility]. PICC LINE RN PLACED THE CATHETER YESTERDAY. ADDED LEVOPHED YESTERDAY WHEN THEY INCREASED THE SEDATION FOR THE [facility]ON[facility]. NOW ON LEVOPHED AT 6 MCG. SEDATION : FENTANYL 150 AND VERSED AT 6. LASIX GIVEN YESTERDAY. AFTER BRONCH PATIENT DEVELOPED A LARGE AMOUNT OF CREPITUS THROUGHOUT THE THORACIC/CHEST REGION. CHEST TUBE DRESSING CHANGED AT 1800 YESTERDAY AFTER THE BRONCH. MITTENS ON PATIENT. ETT EXCHANGED YESTERDAY DURING [facility]CH FROM A SIZE 6.5 TO [address] ROLLINS. FAILED CPAP TRIAL TODAY . NEW MICRO REPORT TODAY SHOWING PSEUDOMONAS IN RESPIRATORY CULTURE. SUBQ EMPHYSEMA PERSISTS. RED ELBOWS COVERED WITH FOAM DRESSING. MERREM NEW ANTIBIOTIC. OTHER ANTIBIOTICS CANCELED.
[2020-02-25] MEDS: MEROPENEM 1GM IVPB 100 ML IV SCH (19:58)
[2020-02-25] MEDS ORDERED: TPN PER PHARMACY IV NR ×9 (20:00)
[2020-02-25] MEDS: TOPIRAMATE 100 MG TAB PO SCH (22:00)
--- NOTE | 2020-02-25 22:00 | NUR ---
VSS. REPOSITIONED TO BACK. ORAL CARE DONE. OCCASIONALLY MOVES LEGS. ALBERTO. PUPILS SLUGGISH.
[2020-02-25] MEDS: ATORVASTATIN 20 MG TAB PO SCH (22:27)
[2020-02-26] VITALS (94 sets, daily range): BP systolic 95–165; BP diastolic 41–92
--- NOTE | 2020-02-26 | NUR ---
VSS . LUNGS CLEAR. NSR WITHOUT ECTOPY. NO ETT SECRETIONS. ORAL CARE DONE. ABDOMEN FLAT AND SOFT. MCGRAW IN PLACE DRAINING ADEQUATE AMOUNTS OF CLEAR YELLOW LIQUID. NO EDEMA. BILATERAL MITTENS ON. HEELS OFF BED.
--- NOTE | 2020-02-26 02:00 | NUR ---
WAKES UP BRIEFLY WHEN I TURN HER. MOVES HER ARMS AND LEGS A LITTLE. THEN SETTLES DOWN. NSR WITHOUT ECTOPY. ADEQUATE URINE OUTPUT. NO BM. REPOSITIONED. ORAL CARE DONE.
--- NOTE | 2020-02-26 03:07 | NUR ---
AM LABS SENT
[2020-02-26] MEDS: MEROPENEM 1GM IVPB 100 ML IV SCH ×3 (04:01→20:00)
--- NOTE | 2020-02-26 04:20 | NUR ---
chg bath complete with partial linen change
[2020-02-26] MEDS: MIDAZOLAM DRIP 50 mg/50mL 50 ML IV SCH (06:00)
[2020-02-26] MEDS: InsuLIN REG 1unit/0.01ml Soln (100units/ml) SC SCH ×4 (06:00→18:31)
[2020-02-26] MEDS: ACCU-CHEK COMFORT CURVE STRIP VI SCH ×4 (06:00→18:31)
--- NOTE | 2020-02-26 06:00 | NUR ---
DOING WELL. VSS. NSR WITHOUT ECTOPY. SMALL AMOUNT OF DRNG AT CHEST TUBE SITE.
[2020-02-26] MEDS: GABAPENTIN 300 MG CAP PO SCH ×3 (06:30→22:11)
[2020-02-26 07:30] LABS: Basophils # (auto) 0.1 10 ^3/uL (0-0.2); Hemoglobin 8.7 g/dL (12.2-16.2); Lymphocytes # (auto) 1.7 10 ^3/uL (0.4-5.4); Neutrophils # (auto) 3.7 10 ^3/uL (1.6-8.6); White Blood Cell 6.4 10^3/uL (4.4-10.8)
[2020-02-26 07:33] LABS: Basophils % (auto) 0.8 % (0.0-2.0); Eosinophils # (auto) 0.4 10 ^3/uL (0-0.8); Eosinophils % (auto) 5.6 % (0.0-7.0); Hematocrit 26.8 % (36.0-46.0); Lymphocytes % (auto) 26.8 % (10.0-50.0); Mean Corpuscular Hemoglobin 30.1 pg (28.0-32.0); Mean Corpuscular Hgb Conc. 32.4 g/dL (32.0-36.0); Mean Corpuscular Volume 92.8 fL (80.0-100.0); Monocytes # (auto) 0.6 10 ^3/uL (0-1.3); Monocytes % (auto) 9.8 % (0.0-12.0); Platelet Count (auto) 548 10^3/uL (140-450); Red Blood Cells 2.89 10^6/uL (4.0-5.20); Red Cell Distribution Width 14.3 % (11.8-14.3)
[2020-02-26 07:55] LABS: Potassium 3.8 mmol/L (3.5-5.1)
[2020-02-26 08:02] LABS: Albumin 1.2 g/dL (3.4-5.0); BUN/Creatinine Ratio 13.6; Bilirubin, Total 0.2 mg/dL (0.2-1.0); Calcium 7.8 mg/dL (8.5-10.1); Magnesium 2.4 mg/dL (1.6-2.6); Phosphorus 1.9 mg/dL (2.5-4.90); Total Protein 5.4 g/dL (6.4-8.2)
[2020-02-26] MEDS: ALBUTEROL SULF 2.5 MG/0.5ML(0.5%) NEB SOLN NEB SCH ×3 (08:10→18:41)
--- NOTE | 2020-02-26 08:30 | NUR ---
Noted elevated temp, Dr. Schmitz paged, will cont.to monitor for any changes, assessment ongoing.
[2020-02-26] MEDS: fentaNYL Drip 2500mCg/250mlNS 250 ML IV SCH (08:45)
[2020-02-26] MEDS: ACETAMINOPHEN 325 MG TAB PO PRN (09:00)
--- NOTE | 2020-02-26 09:30 | NUR ---
Dr. Christensen present to see pt., orders to discontinue sputum culture obtained, will cont.to monitor pt for any changes, assessment ongoing.
[2020-02-26] MEDS: BENAZEPRIL HCL 10 MG TAB PO SCH (10:00)
[2020-02-26] MEDS: PANTOPRAZOLE 40 MG/10 ML VIAL INJ IV SCH (10:15)
[2020-02-26] MEDS ORDERED: SODIUM PHOSP 40 MEQ in D5W 5% 250 ML IV ONE (10:15)
[2020-02-26] MEDS: SODIUM CHLOR 0.9% PF (SALINE LOCK) 10ML VIAL/SYR IV SCH ×2 (10:16→22:10)
[2020-02-26] MEDS: FERROUS SULFATE 300 MG/5 ML ORAL LIQ GT SCH ×2 (10:16→22:11)
--- NOTE | 2020-02-26 11:10 | NUR ---
Respiratory note: PT PLACED ON CPAP TRIAL. PS 8, CPAP 5, FI02 30%. PT IS AWAKE AND RESPONSIVE. CPAP TRIAL EXPLAINED TO PT. PT TOLERATING WELL. VITAL AT START HR 107, RR 18, SPO2 95%, BP 131\80. WILL CONTINUE TO MONITOR.
--- NOTE | 2020-02-26 12:40 | NUR ---
Respiratory note: WEANING PARAMETERS. NIF-25, VC 1000, LEAK 200. ABG DONE. INFORMED OF ALL PARAMETERS AND TESTS RESULTS.. DR. ROLLINS ORDERED FOR EXTUBATION. PT EXTUBATED AND PLACED ON 10 LPM 30% FIO2 COOL AERSOL MASK. PT TOLERATING WELL. WILL CONTINUE TO MONITOR.
--- NOTE | 2020-02-26 12:40 | NUR ---
pt.extubated at this time, 20ml Fentanyl and 43 ml of versed wasted into blue bins and witnessed per DEMARCO Blankenship. Will cont.to monitor for any changes, call carlos in reach, assessment ongoing.
[2020-02-26] MEDS: NOREPINEPHRINE 8 MG/250ML KIT 250 ML IV SCH (12:45)
--- NOTE | 2020-02-26 19:05 | NUR ---
No distress noted, pt. report given to DEMARCO Valladares. Care of pt. assumed per NOC shift, day shift relinquished care and signed off.
--- NOTE | 2020-02-26 19:35 | NUR ---
ADMITTED WITH PRODUCTIVE COUGH AND DYSPNEA. WENT FROM TELE TO [facility] TO OR (02/22). AFTER INDUCTION, PATIENT CODED RECEIVING EPI X 2. AFTER ROSC, THE PATIENT UNDERWENT SURGERY BY DR DUPREE. NEW # 40 CHEST TUBE PLACED. RIGHT RADIAL ARTERIAL LINE DC'D TODAY. 02/[address] [facility] [address] ROLLINS. LABS SENT. PENDING TESTS FROM THE [facility]ON[facility]. PICC LINE RN PLACED THE CATHETER 02/24/20. AFTER BRONCH PATIENT DEVELOPED A LARGE AMOUNT OF CREPITUS THROUGHOUT THE THORACIC/CHEST REGION. MITTENS ON PATIENT. NEW MICRO REPORT TODAY SHOWING PSEUDOMONAS IN RESPIRATORY CULTURE. SUBQ EMPHYSEMA PERSISTS. RED ELBOWS COVERED WITH FOAM DRESSING.
[2020-02-26] MEDS: TPN PER PHARMACY IV NR ×8 (19:58)
--- NOTE | 2020-02-26 21:46 | NUR ---
TOPAMAX BEING HELD DUE TO ITS INABILITY TO BE CRUSHED
[2020-02-26] MEDS: TOPIRAMATE 100 MG TAB PO SCH (22:00)
--- NOTE | 2020-02-26 22:00 | NUR ---
REMOVED THE 2 PERIPHERAL IVS IN LEFT WRIST AND HAND. SMALL SKIN TEAR UNDER THE CLEAR DRESSING. WOUND CLEANSER TO CLEAN AND FOAM DRESSING TO COVER. RIGHT CHEST IV REMOVED. CREPITUS CONTINUES FROM THE NIPPLES UP THROUGHOUT THE THORAX. RIGHT CHEST TUBE TO 20CM OF DRY ATRIUM PRESSURE. SMALL AMOUNT OF RED DRNG THROUGH CHEST TUBE. HAD HER COUGH SEVERAL TIMES. IT'S VERY COARSE, AND NONPRODUCTIVE. GOT HER A WARM BLANKET. HAD REPOSITIONED HER TO HER BACK. WHEN I CAME BACK IN THE ROOM, SHE HAD TURNED HERSELF TO THE LEFT SIDE. ROM DONE TO ALL EXTREMITIES. NO PERIPHERAL EDEMA
[2020-02-26] MEDS: ATORVASTATIN 20 MG TAB PO SCH (22:11)
[2020-02-27] VITALS (28 sets, daily range): BP systolic 107–144; BP diastolic 45–87
--- NOTE | 2020-02-27 | NUR ---
COUGHED SEVERAL TIMES, NONPRODUCTIVE AND VERY COARSE. CONTINUES TO BE ALERT, ORIENTED. REPOSITIONS SELF. NSR WITHOUT ECTOPY. SPEECH IS CLEAR. TONE IS NORMAL. VIRK TO COMMAND.
[2020-02-27] MEDS: InsuLIN REG 1unit/0.01ml Soln (100units/ml) SC SCH ×4 (00:14→18:00)
[2020-02-27] MEDS: ALBUTEROL SULF 2.5 MG/0.5ML(0.5%) NEB SOLN NEB SCH ×4 (00:14→18:18)
[2020-02-27] MEDS: ACCU-CHEK COMFORT CURVE STRIP VI SCH ×4 (00:14→18:00)
--- NOTE | 2020-02-27 03:43 | NUR ---
AM LABS SENT
[2020-02-27] MEDS: MEROPENEM 1GM IVPB 100 ML IV SCH ×3 (04:25→19:50)
[2020-02-27 04:26] LABS: Eosinophils # (auto) 0.2 10 ^3/uL (0-0.8); Lymphocytes # (auto) 1.3 10 ^3/uL (0.4-5.4); Neutrophils # (auto) 5.7 10 ^3/uL (1.6-8.6)
--- NOTE | 2020-02-27 04:26 | NUR ---
CHG BATH AND FULL LINEN CHANGE
[2020-02-27 04:29] LABS: Basophils # (auto) 0 10 ^3/uL (0-0.2); Basophils % (auto) 0.6 % (0.0-2.0); Eosinophils % (auto) 2.7 % (0.0-7.0); Hematocrit 28.4 % (36.0-46.0); Hemoglobin 9.4 g/dL (12.2-16.2); Lymphocytes % (auto) 16.3 % (10.0-50.0); Mean Corpuscular Hemoglobin 30.3 pg (28.0-32.0); Mean Corpuscular Hgb Conc. 33.1 g/dL (32.0-36.0); Mean Corpuscular Volume 91.7 fL (80.0-100.0); Monocytes # (auto) 0.8 10 ^3/uL (0-1.3); Monocytes % (auto) 9.7 % (0.0-12.0); Neutrophils % (auto) 70.7 % (37.0-80.0); Platelet Count (auto) 618 10^3/uL (140-450); Red Cell Distribution Width 14.2 % (11.8-14.3)
[2020-02-27 04:45] LABS: Albumin 1.3 g/dL (3.4-5.0); Calcium 7.3 mg/dL (8.5-10.1); Potassium 3.3 mmol/L (3.5-5.1)
[2020-02-27 04:51] LABS: BUN/Creatinine Ratio 16.7; Bilirubin, Total 0.3 mg/dL (0.2-1.0); Total Protein 5.7 g/dL (6.4-8.2)
--- NOTE | 2020-02-27 04:57 | NUR ---
CHEST TUBE DRESSING CHANGE WITH VASELINE GAUZE AT SITE, 2 BIFURCATED 4X4S AND SPONGE TAPE
[2020-02-27] MEDS: GABAPENTIN 300 MG CAP PO SCH ×3 (06:14→22:15)
[2020-02-27] MEDS: fentaNYL Drip 2500mCg/250mlNS 250 ML IV SCH (08:45)
[2020-02-27] MEDS: MIDAZOLAM DRIP 50 mg/50mL 50 ML IV SCH (08:45)
[2020-02-27] MEDS: SODIUM CHLOR 0.9% PF (SALINE LOCK) 10ML VIAL/SYR IV SCH ×2 (10:00→22:15)
[2020-02-27] MEDS ORDERED: POTASSIUM PHOSPHATE 44 MEQ in D5W 5% 250 ML IV ONE (10:00)
[2020-02-27] MEDS: PANTOPRAZOLE 40 MG/10 ML VIAL INJ IV SCH (10:09)
[2020-02-27] MEDS: FERROUS SULFATE 300 MG/5 ML ORAL LIQ GT SCH ×2 (10:09→22:14)
[2020-02-27] MEDS: BENAZEPRIL HCL 10 MG TAB PO SCH (10:10)
--- NOTE | 2020-02-27 10:50 | NUR ---
dr sami hess came to see the patient and gave order to transfer patient to telemetry
[2020-02-27] MEDS: NOREPINEPHRINE 8 MG/250ML KIT 250 ML IV SCH (11:30)
[2020-02-27] MEDS: HYDROmorphone HCL 2 MG/ML VL IV PRN ×3 (12:32→22:14)
--- NOTE | 2020-02-27 13:48 | NUR ---
Nutrition Followup Notes Pt wt is 56.2 kg Pt is s/p extubation 02/25 per MD note. Pt is still NPO with no diet order yet. Pt is with a TPN order at 58 ml/hr to provide 1430 kcal, 70g protein and 950 NPCs. This provides 80-96% of energy needs and 117-146% of protein needs Est energy needs: 2878-6716 kcals (25-30 kcals/kgBW) Est protein needs: 48-60 gms/day (0.8-1.0 g/kgBW) Will continue to reassess prn LABS: BUN 3L, Alb 1.3L, Creat 0.18L, GLUC 157H, Ca 7.3L GI: Pt had 1 BM on 02/25 per RN doc BS: 15 mod risk. Refer to wound assessment report for full details. PES: Altered nutrition related lab values r/t current/chronic medical condition aeb hypoglycemia, severe hypoalbuminemia Comments Will continue to monitor PO status, skin status, pertinent labs and weight trends. Will f/u in 2-3 days. 1)Continue TPN to meet >75% of needs 2) If pt GI is accessible, consider EN nutrition support Glucerna 1.2 @ 60ml/hr goal rate as tolerated and per MD approval 3) Gradually advance pt to oral CCHO 60g diet when medically feasible and as tolerated 4) Refer pt to RD for nutrition education upon D/C 5) Continue current plan of care
--- NOTE | 2020-02-27 19:45 | NUR ---
Opening Shift Note Received shift report and assumed care of patient, wakes to name and is alert, patient currently has an NGT to the left nare to LIS, Cruz draining to gravity clear yellow urine, a chest tube to the Right Chest to low continuous suction, secured with foam tape and secured to patient, no signs of leaks, minimal sanguineous drainage, crepitus is felt in the upper chest and collar bone region. Patient is able to self turn and minimally move extremities as patient is extremely weak.
[2020-02-27] MEDS ORDERED: TPN PER PHARMACY IV NR ×9 (20:00)
--- NOTE | 2020-02-27 20:00 | NUR ---
RIGHT CHEST TUBE TO DRY ATRIUM PRESSURE OF 20. WATERY RED DRNG. CHEST TUBE DRESSING IS CLEAN, DRY AND SECURE.
--- NOTE | 2020-02-27 20:15 | NUR ---
Patient Cleaned Patient found to have a small, hard, dark green bowel movement patient cleaned and partial linen change provided.
[2020-02-27] MEDS: TPN PER PHARMACY IV NR ×8 (20:20)
[2020-02-27] MEDS: TOPIRAMATE 100 MG TAB PO SCH (22:00)
[2020-02-27] MEDS: ONDANSETRON HCL 4 MG/2 ML VIAL IV PRN (22:11)
--- NOTE | 2020-02-27 22:14 | NUR ---
Pain & Nausea Patient c/o of aching pain 9 to Right Chest, Back and Left Wrist, patient also stated feeling nauseous provided patient medication as ordered by MD
[2020-02-27] MEDS: ATORVASTATIN 20 MG TAB PO SCH (22:15)
--- NOTE | 2020-02-27 22:44 | NUR ---
Pain and Nausea Re-assessment Patient currently resting quietly in bed with eyes closed no s/s of pain or nausea at this time.
--- NOTE | 2020-02-27 23:59 | NUR ---
Patient rounding Patient is resting quietly in bed with eyes closed without s/s of distress at this time.
[2020-02-28] VITALS (17 sets, daily range): BP systolic 105–131; BP diastolic 63–81
[2020-02-28] MEDS: ALBUTEROL SULF 2.5 MG/0.5ML(0.5%) NEB SOLN NEB SCH ×4 (00:30→19:13)
--- NOTE | 2020-02-28 00:31 | NUR ---
AT BEDSIDE FOR MED MILTON NESBITT.
--- NOTE | 2020-02-28 02:00 | NUR ---
REPOSITIONED TO BACK. PAIN MED GIVEN. SPEECH IS CLEAR. WEAK. LEVEL 9 PAIN
[2020-02-28] MEDS: HYDROmorphone HCL 2 MG/ML VL IV PRN ×5 (02:21→20:20)
--- NOTE | 2020-02-28 02:41 | NUR ---
Pain Re-assessed Patient laying quietly in bed with eyes closed no s/s of distress or pain at this time.
--- NOTE | 2020-02-28 04:00 | NUR ---
Patient Rounding Patient resting quietly in bed no s/s of distress or pain. chest tube remains in place with dressing dry and intact no signs of leaks, connected to continuous Low suction. crepitus to upper chest an collar bone area. Patient remains alert and oriented.
[2020-02-28] MEDS: MEROPENEM 1GM IVPB 100 ML IV SCH ×3 (04:03→20:24)
--- NOTE | 2020-02-28 05:40 | NUR ---
Provided Report to Angelika SNYDER RN, requested AID bring bed for transfer of patient.
[2020-02-28] MEDS: GABAPENTIN 300 MG CAP PO SCH ×3 (05:56→21:58)
[2020-02-28] MEDS: ACCU-CHEK COMFORT CURVE STRIP VI SCH ×5 (05:56→23:39)
[2020-02-28] MEDS: InsuLIN REG 1unit/0.01ml Soln (100units/ml) SC SCH ×4 (05:57→17:42)
--- NOTE | 2020-02-28 06:05 | NUR ---
BED IS HERE READY FOR TRANSPORT. MOVING PATIENT TO BED. ON TELEMETRY BOX
--- NOTE | 2020-02-28 06:22 | NUR ---
TRANSFER TO ROOM 279B COMPLETED. BED IN DOWN POSITION. RN ANNIE ACCEPTED THE PATIENT. CHEST TUBE SUCTION TUBING HOOKED TO WALL. INFORMED THE RN THAT SHE NEEDS 2 PUMPS. NASAL PRONGS HOOKED TO WALL OXYGEN OUTLET AT 3L. HEAD OF BED ELEVATED.
--- NOTE | 2020-02-28 06:24 | NUR ---
ICU transfer to Tele Patient alert and oriented x4 and has no s/s of distress or SOB.Patient oriented to primary RN, unit, room, bed, and unit policies regarding patient care and visiting hours. Patient now on continuous telemetry monitoring, tele box # 75 and telemetry reading on arrival to unit is SINUS RHYTHM. Patient placed on bedside oxygen NC 3L, weighed by bedscale and encouraged to call if they need something. All questions and concerns addressed, patient verbalized understanding.
[2020-02-28 06:45] LABS: Basophils # (auto) 0.1 10 ^3/uL (0-0.2); Basophils % (auto) 0.8 % (0.0-2.0); Eosinophils # (auto) 0.5 10 ^3/uL (0-0.8); Eosinophils % (auto) 6.4 % (0.0-7.0); Hematocrit 28.1 % (36.0-46.0); Hemoglobin 9.2 g/dL (12.2-16.2); Lymphocytes # (auto) 1.7 10 ^3/uL (0.4-5.4); Lymphocytes % (auto) 23.4 % (10.0-50.0); Mean Corpuscular Hemoglobin 29.9 pg (28.0-32.0); Mean Corpuscular Hgb Conc. 32.7 g/dL (32.0-36.0); Mean Corpuscular Volume 91.4 fL (80.0-100.0); Monocytes # (auto) 0.8 10 ^3/uL (0-1.3); Monocytes % (auto) 11.6 % (0.0-12.0); Neutrophils # (auto) 4.1 10 ^3/uL (1.6-8.6); Neutrophils % (auto) 57.8 % (37.0-80.0); Platelet Count (auto) 597 10^3/uL (140-450); Red Blood Cells 3.07 10^6/uL (4.0-5.20); Red Cell Distribution Width 13.7 % (11.8-14.3); White Blood Cell 7.1 10^3/uL (4.4-10.8)
[2020-02-28 06:50] LABS: Albumin 1.2 g/dL (3.4-5.0); Calcium 7.4 mg/dL (8.5-10.1); Magnesium 2.3 mg/dL (1.6-2.6); Potassium 3.9 mmol/L (3.5-5.1)
[2020-02-28 06:55] LABS: BUN/Creatinine Ratio 18.2; Bilirubin, Total 0.2 mg/dL (0.2-1.0); Phosphorus 2.5 mg/dL (2.5-4.90); Total Protein 5.7 g/dL (6.4-8.2)
--- NOTE | 2020-02-28 07:28 | NUR ---
End of Shift Note Endorsed care to dayshift RN. At this time patient has no s/s of distress or SOB.
--- NOTE | 2020-02-28 07:46 | NUR ---
Opening Note Assumed pt care from NOC RN. Pt is a/ox4 with no s/s of distress or SOB. Pt is currently sitting upright in bed on 3L via NC with c/o pain to back, 01/20, will provide appropriate medication. Chest tube is in place to R side at 20cm suction. Currently level of drainage is at 750mL. Mild crepitus noted to pt's upper chest upon palpation. Will notify MD upon rounding. NG tube present to L nare, not currently on suction. TPN is currently running at 58mL/HR. Cruz is present, free of kinks and is draining to gravity. Safety measures maintained with call light within reach, bed in lowest position and side rails up. Will continue to monitor.
[2020-02-28] MEDS: MIDAZOLAM DRIP 50 mg/50mL 50 ML IV SCH (08:45)
[2020-02-28] MEDS: fentaNYL Drip 2500mCg/250mlNS 250 ML IV SCH (08:45)
[2020-02-28] MEDS: PANTOPRAZOLE 40 MG/10 ML VIAL INJ IV SCH (09:27)
[2020-02-28] MEDS: BENAZEPRIL HCL 10 MG TAB PO SCH (09:28)
[2020-02-28] MEDS: SODIUM CHLOR 0.9% PF (SALINE LOCK) 10ML VIAL/SYR IV SCH ×2 (09:28→21:58)
[2020-02-28] MEDS: FERROUS SULFATE 300 MG/5 ML ORAL LIQ GT SCH ×2 (09:56→21:58)
--- NOTE | 2020-02-28 10:10 | NUR ---
Dr Christensen at Bedside MD to see pt. Discussed POC with pt. Made MD aware of crepitus present, MD ordered CXR. Further orders given, will implement and continue to monitor.
--- NOTE | 2020-02-28 10:34 | NUR ---
NG Tube D/C'ed NG tube d/c'ed per MD's request. Pt tolerated removal well. Swallow eval placed for advancement of diet. Will continue to monitor.
--- NOTE | 2020-02-28 11:22 | NUR ---
Notified Dr Christensen of CXR Results No new orders at this time. Will continue to monitor.
--- NOTE | 2020-02-28 12:13 | NUR ---
Advancement of Diet Pt was able to tolerated taking in liquids PO, both water and juice. Pt placed in high fowlers. Will continue to monitor and advance diet as tolerated.
[2020-02-28] MEDS: ACETAMINOPHEN 325 MG TAB PO PRN (15:16)
--- NOTE | 2020-02-28 15:29 | NUR ---
SWALLOW EVALUATION. PATIENT HAS NATURAL TEETH AND IS ABLE TO FOLLOW DIRECTIONS. PATIENT ABLE TO TOLERATE MECHANICAL SOFT DIET TEXTURE WITH THIN LIQUIDS WITH NO OVERT SIGNS OR SYMPTOMS OF ASPIRATION. NURSING NOTIFIED.
--- NOTE | 2020-02-28 16:53 | NUR ---
Elevated Temp Reported Temp of 101 reported. Cooling measures initiated. Reassessed temp. currently at 98.8. Will continue to monitor.
--- NOTE | 2020-02-28 18:30 | NUR ---
Chest Tube Output 65mL output total for shift within chest tube. Site is secured and chest tube set up is at 20cm suction.
[2020-02-28] MEDS ORDERED: TPN PER PHARMACY IV NR ×10 (20:00)
[2020-02-28] MEDS: ATORVASTATIN 20 MG TAB PO SCH (21:58)
[2020-02-28] MEDS: TOPIRAMATE 100 MG TAB PO SCH (21:58)
[2020-02-29] MEDS: InsuLIN REG 1unit/0.01ml Soln (100units/ml) SC SCH ×2 (00:13→05:47)
[2020-02-29] MEDS: ALBUTEROL SULF 2.5 MG/0.5ML(0.5%) NEB SOLN NEB SCH ×4 (00:30→19:09)
--- NOTE | 2020-02-29 00:35 | NUR ---
AT BEDSIDE FOR MED MILTON NESBITT.
[2020-02-29] MEDS: HYDROmorphone HCL 2 MG/ML VL IV PRN ×5 (00:55→20:05)
[2020-02-29] MEDS: MEROPENEM 1GM IVPB 100 ML IV SCH ×3 (04:02→20:05)
[2020-02-29] MEDS ORDERED: ALBUTEROL SULF 2.5 MG/0.5ML(0.5%) NEB SOLN NEB PRN (04:45)
--- NOTE | 2020-02-29 04:45 | NUR ---
Paged to bedside due to pt sudden onset of sob. DEMARCO Carney at bedside. pts pox 92-93% on 3lpm nc. HR in 90s-100s. JOINERY FACTORY WORKER communicated patient was moved up in bed, patient explained after being moved she became sob. This RT and DEMARCO Carney inspected chest tube site for possible dislodgement. Recommended CXR be obtained to confirm chest tube position. Pt complaining of sob. Med neb tx given at this time.
--- NOTE | 2020-02-29 04:50 | NUR ---
PATIENT REPORTS SOB RT PAGED AND PATIENT RECEIVED A BREATHING TREATMENT. STAT CHEST XRAY ORDERED PER PROTOCOL TO VERIFY CHEST TUBE PLACEMENT. WILL CONTINUE TO MONITOR PATIENT Q1 AND PRN.
[2020-02-29 05:00] VITALS: BP 119/70
[2020-02-29] MEDS: ACCU-CHEK COMFORT CURVE STRIP VI SCH (05:41)
--- NOTE | 2020-02-29 05:45 | NUR ---
PAIN AT THIS TIME, PATIENT COMPLAIN OF BACK PAIN. PER PATIENT, SHE DOES NOT FEEL ANY SOB ANYMORE. MEDICATED PER MD ORDERS. WILL CONTINUE TO MONITOR PATIENT Q1 AND PRN.
[2020-02-29] MEDS: GABAPENTIN 300 MG CAP PO SCH ×3 (05:52→22:00)
--- NOTE | 2020-02-29 07:28 | NUR ---
Opening Note Assumed pt care from ALEKSANDAR RN. Pt is a/ox4 with no s/s of distress or SOB. Pt is currently sitting upright in bed on 3L via NC. Chest tube to R side of chest intact, site secured/reinforced. Current level of output on CT is 850 mL, ALEKSANDAR RN reported total of 35mL out for her shift. Cruz is present, free of kinks and is draining to gravity. TPN is currently running at 57mL/hr. Discussed POC with pt, pt verbalized understanding. Safety measures maintained with call light within reach, bed in lowest position and side rails up. Will continue to monitor for changes.
[2020-02-29 07:36] LABS: Eosinophils # (auto) 0.4 10 ^3/uL (0-0.8); Hemoglobin 9.9 g/dL (12.2-16.2); Mean Corpuscular Volume 92.7 fL (80.0-100.0); Monocytes # (auto) 0.9 10 ^3/uL (0-1.3)
[2020-02-29 07:38] LABS: Basophils # (auto) 0.1 10 ^3/uL (0-0.2); Basophils % (auto) 0.6 % (0.0-2.0); Eosinophils % (auto) 4.9 % (0.0-7.0); Hematocrit 30.9 % (36.0-46.0); Lymphocytes # (auto) 1.2 10 ^3/uL (0.4-5.4); Lymphocytes % (auto) 15.2 % (10.0-50.0); Mean Corpuscular Hemoglobin 29.7 pg (28.0-32.0); Monocytes % (auto) 11.6 % (0.0-12.0); Neutrophils # (auto) 5.4 10 ^3/uL (1.6-8.6); Neutrophils % (auto) 67.7 % (37.0-80.0); Platelet Count (auto) 645 10^3/uL (140-450); Red Blood Cells 3.34 10^6/uL (4.0-5.20); Red Cell Distribution Width 14.1 % (11.8-14.3)
[2020-02-29 07:50] LABS: Potassium 3.6 mmol/L (3.5-5.1)
[2020-02-29 08:04] LABS: Albumin 1.4 g/dL (3.4-5.0); BUN/Creatinine Ratio 13.9; Bilirubin, Total 0.2 mg/dL (0.2-1.0); Calcium 7.8 mg/dL (8.5-10.1); Magnesium 2.4 mg/dL (1.6-2.6); Phosphorus 2.6 mg/dL (2.5-4.90); Total Protein 6.5 g/dL (6.4-8.2)
--- NOTE | 2020-02-29 08:15 | NUR ---
D/C Guzman Catheter D/C of guzman catheter due to leaking and pt desire to ambulate and use bedside commode to urinate. Removed catheter without difficulty. Provided bedside commode. Instructed pt to call when urge to urinate is needed. Will continue to monitor. Addendum: 02/29/20 at 1152 by AMADOR CALLAHAN RN RN Pt has been able to void since d/c of catheter. Will continue to monitor.
[2020-02-29 08:35] VITALS: BP 114/73
[2020-02-29] MEDS: SODIUM CHLOR 0.9% PF (SALINE LOCK) 10ML VIAL/SYR IV SCH ×2 (09:30→22:00)
[2020-02-29] MEDS: PANTOPRAZOLE 40 MG/10 ML VIAL INJ IV SCH (09:30)
[2020-02-29] MEDS: BENAZEPRIL HCL 10 MG TAB PO SCH (09:30)
[2020-02-29] MEDS: FERROUS SULFATE 300 MG/5 ML ORAL LIQ GT SCH ×2 (09:41→22:00)
[2020-02-29 10:30] VITALS: BP 115/54
--- NOTE | 2020-02-29 10:33 | NUR ---
Dr Christensen and Dr Gonzales at Bedside MDs to see pt. Discussed POC with pt. Peding cytology and pathology results from pleural fluid; request that RN call to f/u with result. Further, MDs request that Dr Rosario be consulted for possible removal of CT given last night output was only 45mL. Will page MD Dr Christensen further stated the d/c of TPN since pt is tolerating advancement of diet. Will implement and continue to monitor.
--- NOTE | 2020-02-29 10:42 | NUR ---
Paged Dr Marlene Figueroa MD regarding possible d/c of chest tube. Awaiting call back. Will continue to monitor. Addendum: 02/29/20 at 1045 by AMADOR CALLAHAN RN RN Dr Rosario pageyolanda back. Stated that the chest tube is to stay in at this time. Requested CXR in the morning. Will implement and continue to monitor.
--- NOTE | 2020-02-29 12:10 | NUR ---
Nutrition Followup Notes Wt: 56.2 kg Pt is s/p extubation 02/25 per MD note. Pt is curently on mech soft diet with inadequate PO of 25% x 3 per RN doc. Pt is with a TPN order at 57 ml/hr to provide 1430 kcal, 70g protein and 950 NPCs. This provides 80-96% of energy needs and 117-146% of protein needs Est energy needs: 1195-8650 kcals (25-30 kcals/kgBW), Est protein needs: 48-60 gms/day (0.8-1.0 g/kgBW). Will continue to reassess prn LABS: GLU 137 H CA 7.8 L ALB 1.4 L GI: Pt had 1 BM on 02/25 per RN doc BS: 20 low risk. Refer to wound assessment report for full details. PES: Altered nutrition related lab values r/t current/chronic medical condition aeb hypoglycemia, severe hypoalbuminemia Comments Will continue to monitor PO status, skin status, pertinent labs and weight trends. Will f/u in 2-3 days. 1)taper of PN support as it tolerate PO. 2) consider CCHO 60g diet along with current diet. 3) Refer pt to RD for nutrition education upon D/C. 4) Continue current plan of care
--- NOTE | 2020-02-29 12:12 | NUR ---
Pathology Attempted to contact pathology three times, unable to reach anyone at this time. Will attempt later. Pending pathology results. Addendum: 02/29/20 at 1552 by AMADOR CALLAHAN RN RN Spoke with Isabela in Pathology. One report is back, faxed over and placed in chart. She stated that the other specimens were recently sent out and are still pending. She did not have an ETA.
[2020-02-29 13:00] VITALS: BP 99/76
--- NOTE | 2020-02-29 14:33 | NUR ---
Successfully Tapered off TPN Pt tolerated tapering off.
--- NOTE | 2020-02-29 15:45 | NUR ---
Ambulation Pt was able to successfully ambulate around unit one time without difficulty. Encouraged pt to ambulate more. Will continue to monitor.
--- NOTE | 2020-02-29 16:23 | NUR ---
Critical Micro Positive blood cultures for VRE. Notified Dr Christensen of results. New orders given. Per MD to keep PICC line at this time. Will implement and continue to monitor.
[2020-02-29] MEDS ORDERED: ERTAPENEM SOD INJ 1 GM in SODIUM CHL 0.9% 50 ML IV ONE (16:30)
[2020-02-29 17:00] VITALS: BP 107/71
[2020-02-29] MEDS: ACETAMINOPHEN 325 MG TAB PO PRN (17:03)
[2020-02-29] MEDS: LINEZOLID 600MG/300ML 300 ML IV SCH (17:21)
--- NOTE | 2020-02-29 18:30 | NUR ---
Chest Tube Output Current level of Ct drainage at 930mL, previous at 850mL. Total 80mL output for shift. Site is secured.
[2020-02-29 22:00] VITALS: BP 87/61
[2020-02-29] MEDS: ATORVASTATIN 20 MG TAB PO SCH (22:00)
[2020-02-29] MEDS: TOPIRAMATE 100 MG TAB PO SCH (22:00)
[2020-03-01] MEDS: ALBUTEROL SULF 2.5 MG/0.5ML(0.5%) NEB SOLN NEB SCH ×3 (00:45→18:56)
[2020-03-01] MEDS: MEROPENEM 1GM IVPB 100 ML IV SCH ×3 (04:00→19:53)
[2020-03-01 05:00] VITALS: BP 91/60
[2020-03-01] MEDS: GABAPENTIN 300 MG CAP PO SCH ×3 (06:11→21:18)
[2020-03-01] MEDS: LINEZOLID 600MG/300ML 300 ML IV SCH ×2 (06:11→17:45)
[2020-03-01] MEDS: HYDROmorphone HCL 2 MG/ML VL IV PRN ×4 (07:04→21:25)
--- NOTE | 2020-03-01 07:30 | NUR ---
Opening Shift Note Received report and assumed care of patient, awake and alert. No S/S of distress/SOB or pain. Chest Tube at 20 cm suction ,noted tipped over to the floor,Instructed on POC,nursing routines,call light within reach patient reminded instructed to call for assistance and PRN, will continue to monitor for changes Q1hr and PRN.
[2020-03-01 07:51] LABS: Lymphocytes # (auto) 1.4 10 ^3/uL (0.4-5.4); Monocytes # (auto) 0.8 10 ^3/uL (0-1.3); Monocytes % (auto) 9.2 % (0.0-12.0); Red Cell Distribution Width 14.1 % (11.8-14.3); White Blood Cell 8.8 10^3/uL (4.4-10.8)
[2020-03-01 07:54] LABS: Basophils # (auto) 0 10 ^3/uL (0-0.2); Basophils % (auto) 0.5 % (0.0-2.0); Eosinophils # (auto) 0.5 10 ^3/uL (0-0.8); Hematocrit 30.8 % (36.0-46.0); Hemoglobin 9.9 g/dL (12.2-16.2); Lymphocytes % (auto) 15.9 % (10.0-50.0); Mean Corpuscular Hemoglobin 29.8 pg (28.0-32.0); Mean Corpuscular Hgb Conc. 32.2 g/dL (32.0-36.0); Mean Corpuscular Volume 92.5 fL (80.0-100.0); Neutrophils % (auto) 68.4 % (37.0-80.0); Platelet Count (auto) 682 10^3/uL (140-450); Red Blood Cells 3.33 10^6/uL (4.0-5.20)
[2020-03-01 07:57] LABS: Calcium 8.2 mg/dL (8.5-10.1); Potassium 3.8 mmol/L (3.5-5.1)
[2020-03-01 08:02] LABS: Albumin 1.5 g/dL (3.4-5.0); BUN/Creatinine Ratio 18.4; Bilirubin, Total 0.4 mg/dL (0.2-1.0); Total Protein 6.6 g/dL (6.4-8.2)
[2020-03-01 09:00] VITALS: BP 90/57
[2020-03-01] MEDS ORDERED: ERTAPENEM SOD INJ 1 GM in SODIUM CHL 0.9% 50 ML IV SCH (10:00)
[2020-03-01] MEDS: SODIUM CHLOR 0.9% PF (SALINE LOCK) 10ML VIAL/SYR IV SCH ×2 (10:14→21:17)
[2020-03-01] MEDS: FERROUS SULFATE 300 MG/5 ML ORAL LIQ GT SCH ×2 (10:14→21:17)
[2020-03-01] MEDS: PANTOPRAZOLE 40 MG/10 ML VIAL INJ IV SCH (10:14)
[2020-03-01] MEDS: BENAZEPRIL HCL 10 MG TAB PO SCH (10:20)
--- NOTE | 2020-03-01 10:20 | NUR ---
MD VISIT DR.K. JUAREZ HERE TO SEE AND EXAMINED PATIENT MADE AWARE BP WAS 90/57,AND LOTENSIN 20 MG WAS NOT GIVEN
--- NOTE | 2020-03-01 10:59 | NUR ---
DR. DUPREE WAS PAGED,CALLED BACK AND INFORMED IF WILL REMOVED CHEST TUBE TODAY PER DR. Shelly JUAREZ,STATED WILL BE HERE TO CHECK ON PATIENT
--- NOTE | 2020-03-01 11:05 | NUR ---
DR. DUPREE CALLED BACK STATED WILL MONITOR CHEST TUBE DRAINAGE FOR 24 HOURS,IF OUTPUT IS ,25 CC OVER NIGHT WILL D/C CHEST TUBE IN A.M.
--- NOTE | 2020-03-01 11:21 | NUR ---
C/O CHEST TUBE SITE PAIN MEDICATED WITH DILAUDID 0.5 MG IVP SEE eMAR FOR DETAIL
--- NOTE | 2020-03-01 11:43 | NUR ---
I called [phone] ext [phone] and spoke with Elana, she will fax me a list of their home health providers in [facility]-she said they are the ones that will be responsible in giving authorization for the home health. Per Elana the assigned shelter case manager is [facility] [phone] extension [phone].
--- NOTE | 2020-03-01 11:55 | NUR ---
PATIENT AMBULATED WITH P.T. AROUND NURSES STATION WITH WALKER ON ROOM AIR,BACK TO ROOM/CHAIR VERY SOB,O2 SATURATION CHECKED SATURATING 86% Addendum: 03/01/20 at 1420 by Fatoumata Orr RN RN @1155 PATIENT PUT BACK TO OXYGEN 2 LITERS NASAL CANNULA
--- NOTE | 2020-03-01 11:57 | NUR ---
NOTIFIED INFORMED OF SATURATION OF 86% ON ROOM AIR POST AMBULATION
--- NOTE | 2020-03-01 12:00 | NUR ---
REMAINS UP IN CHAIR FOR LUNCH
--- NOTE | 2020-03-01 12:30 | NUR ---
back to bed assisted by PHOTOGRAPHIC DEVELOPER AND PRINTER tolerated activity no distress no discomfort
[2020-03-01 13:00] VITALS: BP 87/58
--- NOTE | 2020-03-01 15:02 | NUR ---
I called [facility] Gate Attendant [facility] [phone] extension [phone] and left message asking for a list of contracted home health providers. I also faxed order to [facility] requesting a list of providers and authorization for home health.
--- NOTE | 2020-03-01 16:07 | NUR ---
I called [facility] Electrical Maintenance Man [facility] [phone] extension [phone] and left message asking for authorization for [facility]-provided her with contact information for [facility]. I also faxed home health order again to [facility]-asking for hard copy authorization for [facility].
--- NOTE | 2020-03-01 16:27 | NUR ---
D/C planning Per social service consult for home health safety, physical therapy and medication management. Faxed clinical information to [facility]. Per Paulina with [facility] patient has been accepted and service to start within 24-48hrs upon d/c day. CHOCO Garcia will obtain authorization from [employer] [facility].
--- NOTE | 2020-03-01 16:34 | NUR ---
C/O PAIN TO CHEST TUBE SITE 01/20,PATIENT MEDICATED WITH DILAUDID 0.5 MG IV,SEE eMAR
[2020-03-01 16:39] VITALS: BP 98/64
--- NOTE | 2020-03-01 16:42 | NUR ---
I received a message from naval surface fire support planner Karey at -faxed her today's MD progress notes, labs, vitals, CXR and medication list as requested.
--- NOTE | 2020-03-01 18:00 | NUR ---
12 HOUR CHEST TUBE OUTPUT = 60 CC
--- NOTE | 2020-03-01 19:28 | NUR ---
STATUS UNCHANGED,REPORT GIVEN TO INCOMING NOC SHIFT RN
--- NOTE | 2020-03-01 19:30 | NUR ---
Opening Shift Note Assumed care of patient, awake and alert. Instructed on POC and to call for assist PRN, will continue to monitor for changes Q1hr and PRN. patient in the lowest possible position with call light within reach. Patient currently complaining of pain in her chest due to SOB and chest tube. Chest tube looked at with day shift DEMARCO Darden, Level checked and will continue to monitor throughout the night. Output to be monitored closely and reported in the morning. Addendum: 03/01/20 at 2316 by Teresa Thorpe RN 620ml noted in the chest tube at beginning of shift.
--- NOTE | 2020-03-01 21:00 | NUR ---
Pillow placed under patients left buttocks for comfort, will move as appropriate to patients pain level.
[2020-03-01] MEDS: ATORVASTATIN 20 MG TAB PO SCH (21:17)
[2020-03-01] MEDS: TOPIRAMATE 100 MG TAB PO SCH (21:17)
--- NOTE | 2020-03-01 21:30 | NUR ---
Patient in pain. Will administer pain medications as ordered. Discussed with patient if she feels that she need a breathing treatment to call. Patient complained of some SOB upon examination. Will continue to monitor patient.
[2020-03-01 22:00] VITALS: BP 93/58
[2020-03-02] MEDS: ALBUTEROL SULF 2.5 MG/0.5ML(0.5%) NEB SOLN NEB SCH ×4 (00:19→19:22)
--- NOTE | 2020-03-02 01:30 | NUR ---
Patient complains of pain of 8/10, will administer medications as ordered per protocol. Will continue to monitor patient.
[2020-03-02] MEDS: HYDROmorphone HCL 2 MG/ML VL IV PRN ×5 (01:40→20:08)
[2020-03-02 02:40] VITALS: BP 93/58
[2020-03-02] MEDS: MEROPENEM 1GM IVPB 100 ML IV SCH ×3 (03:26→20:07)
[2020-03-02 05:00] VITALS: BP 88/52
[2020-03-02] MEDS: LINEZOLID 600MG/300ML 300 ML IV SCH ×2 (05:55→17:41)
[2020-03-02] MEDS: GABAPENTIN 300 MG CAP PO SCH ×3 (05:55→21:14)
--- NOTE | 2020-03-02 05:55 | NUR ---
Patient complains of pain of 8/10, will give medications as prescribed per protocol.
--- NOTE | 2020-03-02 06:00 | NUR ---
Output at beginning of shift was 620cc (starting at 1800), output at end of shift was 650cc (ending at 0600). Total output for the night was 30cc total. Will endorse to day shift to make sure MD is aware of total output for the night. Dressing of chest tube was reinforced. C/D/I.
--- NOTE | 2020-03-02 06:10 | NUR ---
Dressing to sacrum changed. C/D/I.
--- NOTE | 2020-03-02 07:30 | NUR ---
Opening Shift Note Received report and assumed care of patient, awake and alert.up to BSC,Chest Tube at 20 cm suction , tipped over in bed,chest tube down to floor,patient and PROGRAMS ASSISTANT re instructed on Chest Tube care, No S/S of distress/SOB or pain. Instructed on POC,nursing routines,call light within reach patient reminded instructed to call for assistance and PRN, will continue to monitor for changes Q1hr and PRN.
[2020-03-02 09:00] VITALS: BP 81/42
--- NOTE | 2020-03-02 09:17 | NUR ---
I called [facility] and spoke with Sales Solutions Representative Homa [phone] ext [phone]-she said her certified medical technician assistant is reviewing this request for home health-faxed her requested PT notes-she will give to her MD and give me a call back.
--- NOTE | 2020-03-02 10:00 | NUR ---
MD VISIT DR. Shelly JUAREZ HERE TO SEE AND EXAMINED PATIENT,INFORMED OF LOW BP 81/42 AND PATIENT ON LOTENSIN,RECEIVED ORDER TO DISCONTINUE LOTENSIN
[2020-03-02] MEDS: PANTOPRAZOLE 40 MG/10 ML VIAL INJ IV SCH (10:47)
[2020-03-02] MEDS: SODIUM CHLOR 0.9% PF (SALINE LOCK) 10ML VIAL/SYR IV SCH ×2 (10:48→21:14)
--- NOTE | 2020-03-02 10:48 | NUR ---
C/O CHEST TUBE SITE PAIN,MEDICATED WITH DILAUDID 0.5 MG IVP SEE eMAR
--- NOTE | 2020-03-02 11:00 | NUR ---
OOB AMBULATED WITH P.T. WITH O2 AT 2 LITERS NASAL CANNULA,BACK TO BED TOLERATED ACTIVITY
--- NOTE | 2020-03-02 11:50 | NUR ---
MD VISIT DR. WADE HERE TO SEE AND EXAMINED PATIENT,AWARE OF CHEST TUBE OUTPUT FOR 24 HOURS
[2020-03-02] MEDS: FERROUS SULFATE 300 MG/5 ML ORAL LIQ GT SCH ×2 (12:11→21:14)
--- NOTE | 2020-03-02 12:20 | NUR ---
I received a message from [facility] [employer] Screen Etcher Homa letting me know that they are approving [facility]-they will send them the hard copy authorization.
--- NOTE | 2020-03-02 12:54 | NUR ---
Nutrition Followup Notes Wt: 53.1 kg Pt is s/p extubation 02/25 per MD note. Pt is curently on [facility] soft diet with an improved appetite aeb ave 67% PO intake over 3 meals per RN doc. Pt stated her appetite is improving. Pt is now off TPN nutrition support. Est energy needs: 1226-4073 kcals (25-30 kcals/kgBW), Est protein needs: 48-60 gms/day (0.8-1.0 g/kgBW). Will continue to reassess prn LABS: CA 8.2 L ALB 1.5 L GI: Pt had 1 BM on 02/28 per RN doc BS: 20 low risk. Refer to wound assessment report for full details. PES: Altered nutrition related lab values r/t current/chronic medical condition aeb hypoglycemia, severe hypoalbuminemia Comments Will continue to monitor PO status, skin status, pertinent labs and weight trends. Will f/u in 3-5 days. 1) Taper of PN support as it tolerate PO. (Resolved) 2) Consider CCHO 60g diet along with current diet. 3) Refer pt to RD for nutrition education upon D/C. 4) Continue current plan of care
[2020-03-02 13:00] VITALS: BP 82/48
--- NOTE | 2020-03-02 15:51 | NUR ---
C/O CHEST TUBE SITE PAIN ,PATIENT MEDICATED WITH DILAUDID 0.5 MG IVP SEE eMAR
[2020-03-02 16:38] VITALS: BP 89/54
[2020-03-02] MEDS: Ensure HIGH Protein Chocolate 8oz Bottle PO SCH (17:42)
--- NOTE | 2020-03-02 18:00 | NUR ---
CHEST TUBE OUTPUT 10 CC (12 HOURS SHIFT)
--- NOTE | 2020-03-02 19:00 | NUR ---
Opening Shift Note Assumed care of patient, awake and alert. Patient complains of SOB, oxygen up to 5L NC for comfort, patient complaints of pain 8.5/10, will give pain medication when due per protocol and continue to monitor patient. Instructed on POC and to call for assist PRN, will continue to monitor for changes Q1hr and PRN. patient in the lowest possible position with call light within reach. Chest tube output marked at 660cc at the start of shift. Will continue to monitor for output per protocol, chest tube suctions at 20ml/hr.
--- NOTE | 2020-03-02 19:15 | NUR ---
STATUS UNCHANGED,NO DISTRESS,NO DISCOMFORT,REPORT GIVEN TO INCOMING NOC SHIFT RN
--- NOTE | 2020-03-02 21:02 | NUR ---
Dressing reinforced, C/D/I. Continuing to monitor output.
[2020-03-02] MEDS: ATORVASTATIN 20 MG TAB PO SCH (21:14)
[2020-03-02] MEDS: TOPIRAMATE 100 MG TAB PO SCH (21:14)
--- NOTE | 2020-03-02 21:48 | NUR ---
Order for IS every hour for patient. IS given to patient. Patient educated on how to use the IS and its benefits. Patient demonstrated her knowledge of how to use the IS and verbalized understanding. Patient to do it every hour while awake. Will continue to monitor patient.
[2020-03-02 22:00] VITALS: BP 92/47
[2020-03-03] MEDS: HYDROmorphone HCL 2 MG/ML VL IV PRN ×3 (00:20→09:24)
[2020-03-03] MEDS: ALBUTEROL SULF 2.5 MG/0.5ML(0.5%) NEB SOLN NEB SCH ×4 (00:48→19:14)
--- NOTE | 2020-03-03 01:07 | NUR ---
PICC line in place since 02/23, dressing changed. Sterile technique used, patient tolerated well .
[2020-03-03] MEDS: MEROPENEM 1GM IVPB 100 ML IV SCH ×3 (03:07→20:06)
[2020-03-03 05:00] VITALS: BP 87/51
[2020-03-03] MEDS: LINEZOLID 600MG/300ML 300 ML IV SCH ×2 (05:41→17:34)
[2020-03-03] MEDS: GABAPENTIN 300 MG CAP PO SCH ×3 (05:42→21:37)
--- NOTE | 2020-03-03 06:57 | NUR ---
End of shift chest tube. 670cc, 10cc output at night. 20cc output total for 24 hours, will endorse to day shift to let the doctor know.
--- NOTE | 2020-03-03 07:30 | NUR ---
Opening Shift Note Assuming care of patient at this time. Patient is awake and alert. Patient denies pain. patient shows no signs or symptoms of distress or shortness of breath. Bed is locked and lowered with side rails up x2. Instructed patient on the plan of care for today and to call for assistance as needed. Call light within reach. Will continue to round hourly and as needed.
[2020-03-03] MEDS: Ensure HIGH Protein Chocolate 8oz Bottle PO SCH ×3 (08:25→18:39)
[2020-03-03 09:00] VITALS: BP 79/40
[2020-03-03] MEDS: PANTOPRAZOLE 40 MG/10 ML VIAL INJ IV SCH (09:23)
--- NOTE | 2020-03-03 09:30 | NUR ---
Marlene at bedside Dr. Rosario at bedside. Chest tube removed at this time. No distress noted. Dr. Rosario gave order for one time pain medication. Patient has just received dilaudid previous to chest tube removal. Dr. Rosario aware. Will medicate for pain according to MD orders.
[2020-03-03] MEDS ORDERED: HYDROcodone-ACET 5/325MG TAB PO ONE (10:15)
[2020-03-03] MEDS: SODIUM CHLOR 0.9% PF (SALINE LOCK) 10ML VIAL/SYR IV SCH ×2 (10:20→21:36)
[2020-03-03] MEDS: FERROUS SULFATE 300 MG/5 ML ORAL LIQ PO SCH ×2 (10:30→21:36)
[2020-03-03 13:00] VITALS: BP 86/54
[2020-03-03] MEDS: HYDROcodone-ACET 5/325MG TAB PO PRN ×2 (14:51→21:37)
[2020-03-03 16:58] VITALS: BP 106/71
--- NOTE | 2020-03-03 18:03 | NUR ---
WOUND CARE NOTE: IN TO SEE PATIENT AT THIS TIME FOR EVALUATION OF PATIENT'S SACRUM. CURRENT ALVINO SCORE IS 20. PATIENT CAN SELF TURN/REPOSITION SELF. SHE IS THIN, WEIGHS ONLY 53 KG. COCCYX IS PROMINENT. SKIN IS RED, BUT BLANCHABLE. SKIN TEAR HAS A 2 X 0.6 CM LIGHT BROWN SCAB. APPLIED OPTIFOAM GENTLE SACRAL DRESSING TO COVER AND PROTECT. WOUND PHOTO TAKEN AT THIS TIME FOR REFERENCE. SKIN/WOUND CARE PLAN UPDATED. PATIENT EDUCATED ON PRESSURE REDISTRIBUTION. PATIENT VERBALIZED UNDERSTANDING. RECOMMEND: CONTINUATION WITH ALL WOUND CARE ORDERS PREVIOUSLY PRESCRIBED BY MD. WOUND CARE TEAM WILL CONTINUE TO MONITOR. Addendum: 03/03/20 at 1810 by Kizzy Gunn RN Amended: Links added.
--- NOTE | 2020-03-03 18:57 | NUR ---
Closing Shift Note Patient resting in bed. No distress noted. Will endorse care to the night stocker RN.
[2020-03-03] MEDS: ATORVASTATIN 20 MG TAB PO SCH (21:36)
[2020-03-03] MEDS: TOPIRAMATE 100 MG TAB PO SCH (21:36)
[2020-03-03 22:02] VITALS: BP_SYST 102; BP_SYST 105; BP_DIAS 60; BP_DIAS 74
[2020-03-04] MEDS: MEROPENEM 1GM IVPB 100 ML IV SCH ×2 (03:37→12:00)
--- NOTE | 2020-03-04 04:50 | NUR ---
pt incontinent of bowel and urine, full bed change, pericare, and gown
[2020-03-04 05:00] VITALS: BP 104/66
[2020-03-04] MEDS: LINEZOLID 600MG/300ML 300 ML IV SCH (05:41)
[2020-03-04] MEDS: GABAPENTIN 300 MG CAP PO SCH ×2 (05:41→14:00)
[2020-03-04] MEDS: ALBUTEROL SULF 2.5 MG/0.5ML(0.5%) NEB SOLN NEB SCH ×3 (07:24→12:34)
--- NOTE | 2020-03-04 07:30 | NUR ---
Opening Shift Note Assuming care of patient at this time. Patient is awake and alert. Patient complains of pain to the chest tube removal site, /10. Will medicate according to doctor's orders. patient shows no signs or symptoms of distress or shortness of breath. Bed is locked and lowered with side rails up x2. Instructed patient on the plan of care for today and to call for assistance as needed. Call light within reach. Will continue to round hourly and as needed.
[2020-03-04] MEDS: Ensure HIGH Protein Chocolate 8oz Bottle PO SCH ×2 (08:43→12:27)
[2020-03-04 09:00] VITALS: BP 104/64
[2020-03-04] MEDS: FERROUS SULFATE 300 MG/5 ML ORAL LIQ PO SCH (09:28)
[2020-03-04] MEDS: PANTOPRAZOLE 40 MG/10 ML VIAL INJ IV SCH (09:28)
[2020-03-04] MEDS: HYDROcodone-ACET 5/325MG TAB PO PRN (09:29)
[2020-03-04] MEDS: SODIUM CHLOR 0.9% PF (SALINE LOCK) 10ML VIAL/SYR IV SCH (09:32)
--- NOTE | 2020-03-04 11:55 | NUR ---
ABG DRAWN ON ROOM AIR, SPO2 93% AND MAINTAINING.
--- NOTE | 2020-03-04 12:34 | NUR ---
Respiratory note: PT REFUSING SCHEDULED 1200 MEDNEB TX AT THIS TIME, SAYS SHE IS FEELING FINE AND WANTS TO EAT LUNCH INSTEAD. SPO2 93% ON ROOM AIR. NO S/S OF DISTRESS.
[2020-03-04 13:00] VITALS: BP 93/58
--- NOTE | 2020-03-04 13:00 | NUR ---
Staple Removal Baxter removed at this time. No distress noted. Area is clean, dry, and open to air.
[2020-03-04 14:17] VITALS: BP 93/58
--- NOTE | 2020-03-04 15:57 | NUR ---
Discharge Photos Wound Care photos taken of the left wrist at this time. Pictures of sacral area were taken yesterday evening by mucker cofferdam.
--- NOTE | 2020-03-04 16:00 | NUR ---
PICC line d/c PICC line discontinued at this time. Area covered with gauze and bandaged. No distress noted.
== END 2020-03-04 17:00 | disposition home health service (06) | DRG 166 ==
LOC: ER 17:37 → TELE 17:38 → TELE-WESTW 02-18 05:15 → DOU IN ICU 02-23 04:21 → ICU WEST 02-23 10:13 → TELE-WESTW 02-28 06:19
PROVIDERS: ADMIT Nurse Practitioner; ATTEND Family Medicine
PROC: 0W9B3ZZ Drainage of Left Pleural Cavity, Percutaneous Approach (ICD-10-PCS; 2020-02-19)
PROC: 0W993ZZ Drainage of Right Pleural Cavity, Percutaneous Approach (ICD-10-PCS; 2020-02-19)
PROC: 0W9940Z Drainage of Right Pleural Cavity with Drainage Device, Percutaneous Endoscopic Approach (ICD-10-PCS; 2020-02-23)
PROC: 5A1945Z Respiratory Ventilation, 24-96 Consecutive Hours (ICD-10-PCS; 2020-02-23)
PROC: 0BH17EZ Insertion of Endotracheal Airway into Trachea, Via Natural or Artificial Opening (ICD-10-PCS; 2020-02-23)
PROC: 0B9F8ZZ Drainage of Right Lower Lung Lobe, Via Natural or Artificial Opening Endoscopic (ICD-10-PCS; 2020-02-24)
PROC: 02H633Z Insertion of Infusion Device into Right Atrium, Percutaneous Approach (ICD-10-PCS; 2020-02-24)
PROC: 0BJ08ZZ Inspection of Tracheobronchial Tree, Via Natural or Artificial Opening Endoscopic (ICD-10-PCS; principal; 2020-02-24 11:15)
PROC: 3E0336Z Introduction of Nutritional Substance into Peripheral Vein, Percutaneous Approach (ICD-10-PCS; 2020-02-25)
DX: J18.9 Pneumonia, unspecified organism (principal); J96.01 Acute respiratory failure with hypoxia; J85.0 Gangrene and necrosis of lung; E43 Unspecified severe protein-calorie malnutrition; I46.9 Cardiac arrest, cause unspecified; J93.0 Spontaneous tension pneumothorax; J44.1 Chronic obstructive pulmonary disease with (acute) exacerbation; J98.11 Atelectasis; J91.8 Pleural effusion in other conditions classified elsewhere; J94.8 Other specified pleural conditions; J44.0 Chronic obstructive pulmonary disease with (acute) lower respiratory infection; Z20.828 Contact with and (suspected) exposure to other viral communicable diseases; D64.9 Anemia, unspecified; G90.9 Disorder of the autonomic nervous system, unspecified; F31.9 Bipolar disorder, unspecified; E87.6 Hypokalemia; D72.829 Elevated white blood cell count, unspecified; I10 Essential (primary) hypertension; F17.210 Nicotine dependence, cigarettes, uncomplicated; B96.5 Pseudomonas (aeruginosa) (mallei) (pseudomallei) as the cause of diseases classified elsewhere; E11.9 Type 2 diabetes mellitus without complications; I25.10 Atherosclerotic heart disease of native coronary artery without angina pectoris; I70.8 Atherosclerosis of other arteries; Z82.49 Family history of ischemic heart disease and other diseases of the circulatory system; Z79.84 Long term (current) use of oral hypoglycemic drugs; Z83.3 Family history of diabetes mellitus; Z90.710 Acquired absence of both cervix and uterus; Z90.49 Acquired absence of other specified parts of digestive tract; Z79.899 Other long term (current) drug therapy; Z79.891 Long term (current) use of opiate analgesic; Z79.01 Long term (current) use of anticoagulants; Z68.20 Body mass index [BMI] 20.0-20.9, adult; Z98.84 Bariatric surgery status; Z88.0 Allergy status to penicillin
CPT/HCPCS: 10022; 36415; 36569; 36600; 71045; 71250; 71275; 76942; 80048; 80053; 81001; 81025; 82040; 82728; 82805; 82962; 83605; 83615; 83735; 84100; 84443; 84478; 84484; 85025; 85379; 85610; 85730; 86141; 86850; 86900; 86901; 87040; 87070; 87077; 87081; 87086; 87088; 87186; 87205; 87278; 87426; 92610; 93005; 93970; 94002; 94003; 94640; 96361; 96374; 96375; 97530; C9113; G0378; J0171; J1100; J1815; J1956; J2001; J2185; J2250; J2405; J2704; J3480; J3490; J7042; J7060

== ENCOUNTER 2020-03-21 15:49 | Inpatient (IN) | payer OTHER, MEDICAID ==
[~2020-03-21] VITALS: Ht 162.6 cm; Wt 57.6 kg
[~2020-03-21 15:49] MED LIST changes: +LAM100T PO
[2020-03-21 18:15] LABS: Basophils # (auto) 0 10 ^3/uL (0-0.2); Eosinophils # (auto) 0 10 ^3/uL (0-0.8); Lymphocytes # (auto) 1.6 10 ^3/uL (0.4-5.4)
[2020-03-21 18:18] LABS: Basophils % (auto) 0.3 % (0.0-2.0); Eosinophils % (auto) 0.3 % (0.0-7.0); Hemoglobin 9.5 g/dL (12.2-16.2); Lymphocytes % (auto) 17.2 % (10.0-50.0); Mean Corpuscular Hemoglobin 28.8 pg (28.0-32.0); Mean Corpuscular Hgb Conc. 31.6 g/dL (32.0-36.0); Mean Corpuscular Volume 91.1 fL (80.0-100.0); Monocytes % (auto) 10.7 % (0.0-12.0); Neutrophils # (auto) 6.5 10 ^3/uL (1.6-8.6); Neutrophils % (auto) 71.5 % (37.0-80.0); Platelet Count (auto) 646 10^3/uL (140-450); Red Cell Distribution Width 15.9 % (11.8-14.3); White Blood Cell 9.1 10^3/uL (4.4-10.8)
[2020-03-21 18:28] LABS: Albumin 1.8 g/dL (3.4-5.0); Anion Gap 7 (5-15); Blood Urea Nitrogen 13 mg/dL (7-18); Calcium 8.1 mg/dL (8.5-10.1); Carbon Dioxide 21 mmol/L (21-32); Chloride 109 mmol/L (98-107); Glucose 115 mg/dL (74-106); Potassium 4.2 mmol/L (3.5-5.1); Sodium 137 mmol/L (136-145)
[2020-03-21 18:33] LABS: Alanine Aminotransferase 19 U/L (13-56); Alkaline Phosphatase 153 U/L (45-117); Aspartate Aminotransferase 16 U/L (15-37); BUN/Creatinine Ratio 19.4; Bilirubin, Total 0.3 mg/dL (0.2-1.0); GFR African American 120 mL/min; GFR Non-African American 99 mL/min; Total Protein 7.8 g/dL (6.4-8.2)
[2020-03-21] MEDS ORDERED: ONDANSETRON HCL 4 MG/2 ML VIAL IV ONE (19:45)
[2020-03-21] MEDS ORDERED: MORPHINE SULFATE 4 MG/ML SYR/VIAL IV ONE ×2 (19:45→22:15)
[2020-03-21 22:00] VITALS: BP 98/58
[2020-03-21] MEDS ORDERED: MORPHINE SULF INJ 2 MG/ML SYRINGE 1ML IV PRN (22:00)
[2020-03-21] MEDS ORDERED: ONDANSETRON HCL 4 MG/2 ML VIAL IV PRN (22:00)
[2020-03-21] MEDS ORDERED: DEXTROSE (50%) 50ML SYRG IV PRN (22:00)
[2020-03-21] MEDS ORDERED: TEMAZEPAM 15 MG CAP PO PRN (22:00)
[2020-03-21] MEDS ORDERED: levoFLOXacin 500MG 100 ML IV ONE (22:00)
[2020-03-21] MEDS ORDERED: NITROGLYCERIN 0.4 MG SL TAB SL PRN (22:00)
[2020-03-21] MEDS: InsuLIN REG 1unit/0.01ml Soln (100units/ml) SC SCH (22:00)
[2020-03-21] MEDS: ATORVASTATIN 20 MG TAB PO SCH (23:11)
[2020-03-21] MEDS: FAMOTIDINE 20 MG TAB PO SCH (23:12)
[2020-03-21] MEDS: GABAPENTIN 300 MG CAP PO SCH (23:12)
[2020-03-21] MEDS: TOPIRAMATE 100 MG TAB PO SCH (23:12)
[2020-03-21] MEDS: ACCU-CHEK COMFORT CURVE STRIP VI SCH (23:12)
[2020-03-22] VITALS (13 sets, daily range): BP systolic 79–100; BP diastolic 40–60
[2020-03-22] MEDS: ALBUTEROL SULF 2.5 MG/0.5ML(0.5%) NEB SOLN NEB SCH ×4 (00:31→18:32)
[2020-03-22] MEDS: ACETAMINOPHEN 325 MG TAB PO PRN ×2 (00:34→06:37)
--- NOTE | 2020-03-22 01:30 | NUR ---
Telemetry admit from [facility] admitted to Telemetry unit. Patient oriented to Matilde Quiros RN primary RN, unit, room, bed, and unit policies regarding patient care and visiting hours. Patient now on continuous telemetry monitoring, tele box # and telemetry reading on arrival to unit is NSR. Patient placed on bedside oxygen, weighed by bedscale and encouraged to call if they need something. All questions and concerns addressed, patient verbalized understanding. Note: patient alert and oriented x 4, follows direction. On oxygen at 1.5L via NC with even and unlabored respiration, no s/s of distress or SOB. Patient reports pain to the right lateral back 5/10, patient reports pain tolerable at this time. Patient is able to turn independently in bed. Bed in low locked position with side rails up x 2 and call light within reach.Instructed to call for assists PRN. Will continue care.
--- NOTE | 2020-03-22 02:01 | NUR ---
Carolina Zamora NP RE: BP 81/40 BP 74/41. Patient alert and oriented x 4, answers questions appropriately, follows direction. patient reports lightheadedness. Placed patient in trendelenburg and reassessed BP 81/40 HR 106 RR 16 o2 97% on 1.5L via NC. Awaiting call back.
--- NOTE | 2020-03-22 02:40 | NUR ---
Second page to Noah NITRILES LAB TECHNICIAN RE: BP 80/48 patient alert and oriented, answer questions appropriately and follows direction, patient reports lightheadedness, bilateral legs elevated. Patient reports pain 9/10 to right lateral back, hot pack at site, awaiting call back.
--- NOTE | 2020-03-22 02:58 | NUR ---
Received call back from [facility] PAEDIATRICIAN updated on patient status. new order received for normal saline 500ml bolus IV x1. Read back and verified, will carry out orders and continue care.
[2020-03-22] MEDS ORDERED: SODIUM CHLORIDE 0.9% 500 ML IV ONE (03:15)
--- NOTE | 2020-03-22 05:00 | NUR ---
Paged Noah DUMP MOTOR OPERATOR RE: Pain patient reports pain 10/10 to right lateral back, BP 95/56. Offered patient ice pack or hot pack, patient request hot pack, applied to site. Awaiting call back.
[2020-03-22 05:38] LABS: Basophils # (auto) 0 10 ^3/uL (0-0.2); Eosinophils # (auto) 0 10 ^3/uL (0-0.8); Eosinophils % (auto) 0.7 % (0.0-7.0); Hemoglobin 7.9 g/dL (12.2-16.2); Lymphocytes # (auto) 1.8 10 ^3/uL (0.4-5.4); Neutrophils # (auto) 4.2 10 ^3/uL (1.6-8.6)
[2020-03-22 05:41] LABS: Basophils % (auto) 0.5 % (0.0-2.0); Lymphocytes % (auto) 25.4 % (10.0-50.0); Mean Corpuscular Hgb Conc. 31.7 g/dL (32.0-36.0); Mean Corpuscular Volume 91.5 fL (80.0-100.0); Monocytes # (auto) 1.1 10 ^3/uL (0-1.3); Monocytes % (auto) 15.6 % (0.0-12.0); Neutrophils % (auto) 57.8 % (37.0-80.0); Nucleated Red Blood Cells % 0.1 %; Platelet Count (auto) 528 10^3/uL (140-450); Red Blood Cells 2.73 10^6/uL (4.0-5.20); Red Cell Distribution Width 15.9 % (11.8-14.3); White Blood Cell 7.2 10^3/uL (4.4-10.8)
[2020-03-22 05:54] LABS: Calcium 7.8 mg/dL (8.5-10.1); Potassium 3.9 mmol/L (3.5-5.1)
[2020-03-22] MEDS ORDERED: INFLUENZA QUAD 2020-2021 0.5 ML SYRG IM ONE (06:00)
--- NOTE | 2020-03-22 06:35 | NUR ---
Second page to Sonya HENDERSON RE: Pain patient continue to c/o of right lateral back pain 02/19. Offered patient tylenol, patient agreed to Tylenol. Awaiting call back.
[2020-03-22] MEDS: GABAPENTIN 300 MG CAP PO SCH ×3 (06:37→21:16)
[2020-03-22] MEDS: InsuLIN REG 1unit/0.01ml Soln (100units/ml) SC SCH ×4 (06:42→21:24)
[2020-03-22] MEDS: ACCU-CHEK COMFORT CURVE STRIP VI SCH ×4 (06:43→21:25)
[2020-03-22] MEDS ORDERED: HYDROcodone-ACET 5/325MG TAB PO ONE (06:45)
--- NOTE | 2020-03-22 06:45 | NUR ---
Received call back from Noah PUMP HOUSE OPERATOR updated on patient status, new order received for [place] 5/325mg PO x1, read back and verified, will carry out orders and continue care.
--- NOTE | 2020-03-22 06:55 | NUR ---
Closing Note patient ambulated to bathroom with steady gait. Patient back in bed with bed in lowest locked position, side rails up x 2 and call light within reach. No s/s of distress noted.
[2020-03-22] MEDS ORDERED: FUROSEMIDE 20 MG TAB PO SCH (10:00)
[2020-03-22] MEDS: ENOXAPARIN SOD 40 MG/0.4 ML SYRINGE SC SCH (10:00)
[2020-03-22] MEDS ORDERED: ASPirin 81 mg TAB PO SCH (10:00)
--- NOTE | 2020-03-22 10:15 | NUR ---
WOUND CARE NOTE: PATIENT ADMITTED TO [facility] WITH DIAGNOSIS OF PNA. SHE HAS CURRENT ALVINO SCORE OF 20. PATIENT IS ABLE TO SELF AMBULATE WITH NO ASSISTANCE BY STAFF. PATIENT HAS HISTORY WITH PRESSURE ULCER TO SACRUM, WITH RAISED COLLAGEN SCAR AND BLANCHABLE REDNESS TO SACRUM. SHE WOULD BENEFIT FROM BID/PRN APPLICATION WITH MOISTURE BARRIER CREAM, PLACEMENT OF OPTIFOAM GENTLE SACRAL DRESSING PREVENTATIVE. SKIN/WOUND CARE PLAN IMPLEMENTED. NO WOUND CARE MONITORING NEEDED AT THIS TIME. Addendum: 03/22/20 at 1441 by Kizzy Gunn RN Amended: Links added.
[2020-03-22] MEDS: SODIUM CHLORIDE 0.9% 1,000 ML IV SCH ×2 (10:31→23:13)
[2020-03-22] MEDS: FERROUS SULFATE 325 MG TAB PO SCH ×3 (10:31→17:56)
[2020-03-22] MEDS: FAMOTIDINE 20 MG TAB PO SCH ×2 (10:32→21:16)
[2020-03-22] MEDS: lamoTRIgine 100 MG TAB PO SCH (10:32)
[2020-03-22] MEDS: MORPHINE SULF INJ 2 MG/ML SYRINGE 1ML IV PRN ×3 (10:44→20:08)
[2020-03-22 10:58] LABS: Urine WBC None Seen /hpf (0 - 5)
[2020-03-22] MEDS ORDERED: MEROPENEM 1GM IVPB 100 ML IV ONE (11:00)
[2020-03-22 11:10] LABS: Urine Bacteria NONE SEEN /hpf (None Seen); Urine Blood Negative /uL (Negative); Urine Specific Gravity 1.006 (1.001-1.035)
[2020-03-22 11:36] LABS: % Iron Saturation 11.1 % (15-50)
[2020-03-22 11:54] LABS: INR 1.16 (0.9-1.15)
[2020-03-22] MEDS: IPRATROPIUM BROM 0.5 MG/2.5ML INH SOL NEB SCH ×2 (12:00→18:32)
[2020-03-22] MEDS: HYDROcodone-ACET 5/325MG TAB PO PRN ×2 (13:48→18:28)
[2020-03-22] MEDS: MEROPENEM 1GM IVPB 100 ML IV SCH (18:28)
--- NOTE | 2020-03-22 19:00 | NUR ---
OPENING NOTE- NOC SHIFT PATIENT IS ALERT AND ORIENTED X4 ANSWERS IN COMPLETE SENTENCES AND MAKES APPROPRIATE EYE CONTACT. PATIENT IS IN BED >30 DEGREES. BED IS LOCKED AT LOWEST POSITION AND BED RAILS ARE UP X2 FOR SAFETY PRECAUTIONS. BEDSIDE TABLE IS WITHIN REACH, CALL LIGHT IS WITHIN REACH. DISCUSSED POC WITH PATIENT AND INSTRUCTED PATIENT TO CALL PRN; PATIENT VERBALIZED UNDERSTANDING. WILL CONTINUE TO MONITOR Q1H AND PRN.
[2020-03-22] MEDS ORDERED: levoFLOXacin 500MG 100 ML IV SCH (21:00)
[2020-03-22] MEDS: ATORVASTATIN 20 MG TAB PO SCH (21:16)
[2020-03-22] MEDS: TOPIRAMATE 100 MG TAB PO SCH (21:16)
[2020-03-23] VITALS (43 sets, daily range): BP systolic 11–134; BP diastolic 39–77
--- NOTE | 2020-03-23 | NUR ---
NPO PATIENT IS AWARE SHE IS NPO, DRINKS AND FOOD REMOVED.
[2020-03-23] MEDS: MORPHINE SULF INJ 2 MG/ML SYRINGE 1ML IV PRN ×4 (01:50→15:06)
[2020-03-23] MEDS: MEROPENEM 1GM IVPB 100 ML IV SCH ×3 (03:41→18:46)
[2020-03-23] MEDS: InsuLIN REG 1unit/0.01ml Soln (100units/ml) SC SCH ×4 (05:34→22:00)
[2020-03-23] MEDS: ACCU-CHEK COMFORT CURVE STRIP VI SCH ×4 (05:35→22:00)
[2020-03-23 05:39] LABS: Basophils # (auto) 0 10 ^3/uL (0-0.2); Basophils % (auto) 0.4 % (0.0-2.0); Lymphocytes # (auto) 1.8 10 ^3/uL (0.4-5.4); Monocytes # (auto) 0.6 10 ^3/uL (0-1.3); White Blood Cell 5.5 10^3/uL (4.4-10.8)
[2020-03-23] MEDS: GABAPENTIN 300 MG CAP PO SCH (05:39)
[2020-03-23 05:44] LABS: Eosinophils # (auto) 0.2 10 ^3/uL (0-0.8); Eosinophils % (auto) 2.7 % (0.0-7.0); Hematocrit 31.1 % (36.0-46.0); Lymphocytes % (auto) 32.1 % (10.0-50.0); Mean Corpuscular Hemoglobin 29.4 pg (28.0-32.0); Mean Corpuscular Volume 91.8 fL (80.0-100.0); Monocytes % (auto) 11.6 % (0.0-12.0); Neutrophils # (auto) 2.9 10 ^3/uL (1.6-8.6); Neutrophils % (auto) 53.2 % (37.0-80.0); Platelet Count (auto) 684 10^3/uL (140-450); Red Blood Cells 3.39 10^6/uL (4.0-5.20); Red Cell Distribution Width 16.5 % (11.8-14.3)
[2020-03-23 05:57] LABS: Potassium 4.3 mmol/L (3.5-5.1)
[2020-03-23 06:04] LABS: BUN/Creatinine Ratio 21.7; Calcium 8.2 mg/dL (8.5-10.1)
[2020-03-23] MEDS: IPRATROPIUM BROM 0.5 MG/2.5ML INH SOL NEB SCH ×4 (06:24→22:17)
[2020-03-23] MEDS: ALBUTEROL SULF 2.5 MG/0.5ML(0.5%) NEB SOLN NEB SCH ×4 (06:24→22:16)
--- NOTE | 2020-03-23 07:15 | NUR ---
BLOOD SUGAR IS 69 PROVIDED ORANGE JUICE, DAYSHIFT NURSE SANJUANA PAL AWARE.
[2020-03-23] MEDS: FERROUS SULFATE 325 MG TAB PO SCH ×3 (08:00→18:00)
--- NOTE | 2020-03-23 08:00 | NUR ---
Opening Shift Note Assumed care of patient, awake, alert and oriented X4. No S/S of distress/SOB, complains of right flank pain, 10/20. Tele# 32, sinus rhythm @ 96 bpm. IV to right antecubital, 20 gauge, patient and infusing 0.9% NS @ 75 ml/hr. Instructed on POC and to call for assist PRN, will continue to monitor for changes Q1hr and PRN.
[2020-03-23] MEDS ORDERED: POVIDONE IODINE 10 % TOPICAL OINT 30GM TOP ONE (08:40)
--- NOTE | 2020-03-23 08:43 | NUR ---
REPEAT BS Repeat blood sugar is 75 after orange juice given this morning by [facility] monett nurse Tori for a BS of 69. Patient remains NPO for procedure.
--- NOTE | 2020-03-23 08:43 | NUR ---
ENIO Lopez sample collected, alonso Boston taking to lab.
--- NOTE | 2020-03-23 08:45 | NUR ---
REPEAT BLOOD PRESSURE B/P 99/57 Blood pressure was 87/52 @ 0800. Patient remains asymptomatic.
[2020-03-23] MEDS ORDERED: LIDOCAINE W/ EPINEPHRINE 1% 20ML VIAL ONE (09:12)
--- NOTE | 2020-03-23 09:45 | NUR ---
PRE-OP Patient taken to pre-op via bed for procedure, no distress noted upon departure.
[2020-03-23] MEDS: lamoTRIgine 100 MG TAB PO SCH (10:00)
[2020-03-23] MEDS: FAMOTIDINE 20 MG TAB PO SCH (10:00)
[2020-03-23] MEDS: ENOXAPARIN SOD 40 MG/0.4 ML SYRINGE SC SCH (10:00)
[2020-03-23] MEDS ORDERED: SUCCINYLCHOLINE CHLORIDE 20 MG/ML 10ML VIAL IV ONE (10:12)
[2020-03-23] MEDS ORDERED: levoFLOXacin 500MG 100 ML IV ONE (11:17)
[2020-03-23] MEDS ORDERED: fentaNYL CITRATE 100 MCG/2 ML VL ONE (11:27)
[2020-03-23] MEDS ORDERED: ROCURONIUM 10MG/ML 10ML VIAL IV ONE (11:27)
[2020-03-23] MEDS ORDERED: PROPOFOL 10 MG/ML 20 ML IV ONE (11:42)
[2020-03-23] MEDS ORDERED: MIDAZOLAM HCL 1MG/1ML-2 ML VIAL ONE ×4 (13:33→13:51)
--- NOTE | 2020-03-23 13:42 | NUR ---
Patient transferred to ICU bed 10 from recovery, all personal belongings taken to ICU by GWYN Irving.
--- NOTE | 2020-03-23 14:00 | NUR ---
Patient received to ICU from recovery s/p RT thoracotomy with decortication via hospital bed on registered nurse cardiac telemetry, intubated size 7 ET, 22 on the lip. Patient connected to mechanical ventilator by Minerva DOUGLAS, rate 16, Vt 450, PEEP 5, 100% FIO2 decreased to 45%, saturation 99%. RT chest tube to -20cm H20 suction, draining sanguinous, no air leaks noted. See interventions for complete assessment. Patient connected to ICU monitoring, weighed by bedscale, oriented to Izzy oconnell RN, unit, ventilator and sedation. Bed locked on low psoition, side rails up x2, bed alarms on at all times, will continue to monitor patient.
[2020-03-23] MEDS ORDERED: MIDAZOLAM DRIP 50 mg/50mL 50 ML IV ONE (14:06)
[2020-03-23] MEDS ORDERED: NOREPINEPHRINE 8 MG/250ML KIT 250 ML IV ONE (14:07)
[2020-03-23] MEDS ORDERED: fentaNYL Drip 2500mCg/250mlNS 250 ML IV ONE (14:07)
[2020-03-23] MEDS ORDERED: MORPHINE SULFATE 4 MG/ML SYR/VIAL IV PRN (14:15)
[2020-03-23] MEDS ORDERED: LORazepam 2MG/ML-1ML VIAL IV PRN (14:15)
--- NOTE | 2020-03-23 14:15 | NUR ---
Dr Jarrett at bedside, updated on patient's status. Patient seen and examined. Will carry out new orders.
[2020-03-23] MEDS: fentaNYL Drip 2500mCg/250mlNS 250 ML IV SCH (14:31)
[2020-03-23] MEDS: MIDAZOLAM DRIP 50 mg/50mL 50 ML IV SCH (14:32)
[2020-03-23] MEDS: SODIUM CHLORIDE 0.9% 1,000 ML IV SCH (14:34)
[2020-03-23] MEDS: NOREPINEPHRINE 8 MG/250ML KIT 250 ML IV SCH (15:25)
--- NOTE | 2020-03-23 15:30 | NUR ---
PICC line insertion in progress at beside.
--- NOTE | 2020-03-23 15:40 | NUR ---
WOUND CARE NOTE: Added patient back to wound care monitoring list due to intubation status. Patient seen yesterday by mine engineer Flavia due to sacral raised scar tissue, history of pressure injury. Patient admitted to ICU from O.R. s/p Rt Thoracotomy by Dr. Rosario. PICC line nurse at bedside. Will continue to monitor while patient is intubated.
--- NOTE | 2020-03-23 16:13 | NUR ---
PICC line placement Patient significant other educated on need for PICC line placement. All risks and benefits explained and all questions and concerns addressed prior to procedure. Noted past medical history and allergies with no contraindications. INR and Plt counts within acceptable range. 5 fr PICC line inserted via RIGHT BRACHIAL vein using [employer] US and Tip Location System. Sterile technique with maximum barrier precautions utilized. Blood return obtained from each of THE THREE lumens and each flushed easily with NS using proper technique. PICC secured with Stat-lock; biodisc and occlusive dressing applied. Stat portable chest x-ray obtained for PICC tip placement. PRIMARY RN GEN INFORMED. *Baseline Arm Circumference 22 CM INTERNAL LENGTH 34 CM EXTERNAL LENGTH 0 CM PICC lot # [id number]
[2020-03-23] MEDS ORDERED: LIDOCAINE 1% (LOCAL ANESTH.) PF 5ml SDV ID ONE (16:15)
--- NOTE | 2020-03-23 16:15 | NUR ---
Nasogastric tube insertion Patient educated on need for NG tube. LT nare NGT inserted per MD order. Placement verified by aspiration of stomach contents, auscultation and chest xray. Patient tolerated procedure well.
--- NOTE | 2020-03-23 16:30 | NUR ---
LT nare NGT to LCS, no drain at this time.
--- NOTE | 2020-03-23 16:45 | NUR ---
Patient temperature 100.6 rectally, cooling measures done. Will continue to monitor.
--- NOTE | 2020-03-23 18:26 | NUR ---
Respiratory note: VENT ORDERS CLARIFIED. NEW VENT SETTINGS PER DR. ZAYAS'S ORDER. ABG WAS DONE ON ORDERED SETTINGS BY RT ON DAYSHIFT. RN AWARE. PT IN NO RESPIRATORY DISTRESS. WILL CONTINUE TO MONITOR.
--- NOTE | 2020-03-23 18:59 | NUR ---
MRSA swab sent to lab
[2020-03-23] MEDS: SOD CHL 0.45% WITH 20MEQ KCL 1,000 ML IV SCH (19:00)
[2020-03-23] MEDS: ACETAMINOPHEN 325 MG TAB PO PRN (19:32)
--- NOTE | 2020-03-23 21:16 | NUR ---
Family: called for update on patient status. Password was verified. updated on patient condition and situation.
[2020-03-23] MEDS: SODIUM CHLOR 0.9% PF (SALINE LOCK) 10ML VIAL/SYR IV SCH (22:00)
[2020-03-23] MEDS: TOPIRAMATE 100 MG TAB PO SCH (22:00)
--- NOTE | 2020-03-23 22:04 | NUR ---
Report given to DEMARCO NICOLE.
[2020-03-24] VITALS (96 sets, daily range): BP systolic 95–153; BP diastolic 55–90
[2020-03-24] MEDS: SODIUM CHLORIDE 0.9% 1,000 ML IV SCH ×3 (00:30→15:25)
[2020-03-24] MEDS: ALBUTEROL SULF 2.5 MG/0.5ML(0.5%) NEB SOLN NEB SCH ×5 (01:37→22:12)
[2020-03-24] MEDS: IPRATROPIUM BROM 0.5 MG/2.5ML INH SOL NEB SCH ×6 (01:37→22:12)
[2020-03-24] MEDS: fentaNYL Drip 2500mCg/250mlNS 250 ML IV SCH (02:20)
[2020-03-24] MEDS: MIDAZOLAM DRIP 50 mg/50mL 50 ML IV SCH ×2 (02:20→09:37)
[2020-03-24] MEDS: MEROPENEM 1GM IVPB 100 ML IV SCH ×3 (03:00→18:11)
[2020-03-24 04:32] LABS: Eosinophils # (auto) 0.1 10 ^3/uL (0-0.8); Neutrophils # (auto) 6.8 10 ^3/uL (1.6-8.6); White Blood Cell 9.2 10^3/uL (4.4-10.8)
[2020-03-24 04:35] LABS: Basophils # (auto) 0 10 ^3/uL (0-0.2); Basophils % (auto) 0.3 % (0.0-2.0); Hematocrit 28.8 % (36.0-46.0); Hemoglobin 8.9 g/dL (12.2-16.2); Lymphocytes # (auto) 1.2 10 ^3/uL (0.4-5.4); Lymphocytes % (auto) 13.3 % (10.0-50.0); Mean Corpuscular Hemoglobin 28.7 pg (28.0-32.0); Mean Corpuscular Hgb Conc. 30.9 g/dL (32.0-36.0); Monocytes % (auto) 11.3 % (0.0-12.0); Neutrophils % (auto) 74.1 % (37.0-80.0); Red Cell Distribution Width 17.5 % (11.8-14.3)
[2020-03-24 04:52] LABS: Albumin 1.3 g/dL (3.4-5.0); Calcium 7.6 mg/dL (8.5-10.1); Potassium 3.9 mmol/L (3.5-5.1)
[2020-03-24 04:55] LABS: Bilirubin, Total 0.3 mg/dL (0.2-1.0); Total Protein 6.4 g/dL (6.4-8.2)
[2020-03-24 05:03] LABS: Platelet Count (auto) 778 10^3/uL (140-450)
[2020-03-24] MEDS: ACCU-CHEK COMFORT CURVE STRIP VI SCH ×4 (06:54→22:00)
[2020-03-24] MEDS: InsuLIN REG 1unit/0.01ml Soln (100units/ml) SC SCH ×4 (06:54→22:00)
--- NOTE | 2020-03-24 07:03 | NUR ---
patient received in bed resting at this on venti mask. Complaining of pain to right lateral chest wall near chest tube incision. Vital signs stable. Patient awake, alert, and oriented. Safety maintianted, call carlos in reach. Will continue to monitor. Addendum: 03/25/20 at 0706 by FRANCO JONES RN RN incorrect time, 03/24/2020 at 1905
--- NOTE | 2020-03-24 07:30 | NUR ---
Opening Shift Note Ass[facility] care of [facility], mildly sedated, follows simple commands, able to make needs known. LT nare NGT to LCS no drain from the previous shift, clamped. No bleeding noted RT chest tube insertion site, maintained on -20 cm H2o suction, 30 ml bloody drain from previous shift, so signs of leaking noted. No S/S of distress/SOB or pain. See interventions for complete assessment. Bed locked on low position, side rails up x2, bed alarms on at all times, call carlos within reach, instructed on POC and to call for assist PRN, will continue to monitor for changes Q1hr and PRN.
[2020-03-24] MEDS: FERROUS SULFATE 325 MG TAB PO SCH ×2 (08:00→17:10)
[2020-03-24] MEDS: SODIUM CHLOR 0.9% PF (SALINE LOCK) 10ML VIAL/SYR IV SCH ×2 (09:34→22:02)
[2020-03-24] MEDS: PANTOPRAZOLE 40 MG/10 ML VIAL INJ IV SCH (09:34)
[2020-03-24] MEDS: SOD CHL 0.45% WITH 20MEQ KCL 1,000 ML IV SCH (09:34)
[2020-03-24] MEDS: lamoTRIgine 100 MG TAB PO SCH (09:35)
[2020-03-24] MEDS: ENOXAPARIN SOD 40 MG/0.4 ML SYRINGE SC SCH ×2 (09:36→10:00)
[2020-03-24] MEDS ORDERED: FAMOTIDINE (10MG/ML) 2ML VL IV SCH (10:00)
--- NOTE | 2020-03-24 10:00 | NUR ---
Patient's rectal temperature 100 F, cooling measures done. Will continue to monitor.
--- NOTE | 2020-03-24 10:00 | NUR ---
Dr Gonzales at bedside, updated on patient's status. Patient seen and examined. Plan to CPAP patient, sedation turned off. Will continue to monitor and carry out new orders.
--- NOTE | 2020-03-24 10:22 | NUR ---
Received call from patient's Jame who's able to provide password. Updated on patient's status and POC, verbalized understanding. All questions and concerns addressed.
--- NOTE | 2020-03-24 10:23 | NUR ---
Respiratory note: ROUTINE VENT CHECK DONE. NO VENT CHANGES MADE AT THIS TIME. RN AT BEDSIDE WEANING OFF SEDATION FOR CPAP TRIAL. PT WAKED UP AND RESPONDS TO QUESTIONS. PT RECEIVED MN TX INLINE. NO ADVERSE REACTION NOTED. WILL CONTINUE TO MONITOR PT.
--- NOTE | 2020-03-24 11:04 | NUR ---
Dr Rosario at bedside, updated on patient's status. Informed of patient's hemoglobin and platelet levels. Patient seen and examined. Per MD hold Lovenox for now. Read back and verified. Will carry out new orders.
--- NOTE | 2020-03-24 12:05 | NUR ---
Respiratory note: PT PLACED BACK ON PREVIOUS SETTINGS AFTER RR DECREASED TO 5 ON CPAP. PT IS STILL TO SLEEPY FOR CPAP. WILL CONTINUE TO MONITOR PT. RN NOTIFIED.
--- NOTE | 2020-03-24 12:30 | NUR ---
This RN came back from lunch. Per Dinora RN, CPAP trial was unsuccessfull.
--- NOTE | 2020-03-24 13:54 | NUR ---
Respiratory note: WEANING PARAMETERS AND ABG OBTAINED. VC 1300, NIF -31.6, RSBI 30, LEAK 200.
[2020-03-24] MEDS: NOREPINEPHRINE 8 MG/250ML KIT 250 ML IV SCH (14:04)
[2020-03-24] MEDS: MORPHINE SULF INJ 2 MG/ML SYRINGE 1ML IV PRN ×2 (14:07→20:23)
--- NOTE | 2020-03-24 14:19 | NUR ---
assessment Patient is a 49 year old female who is in ICU on a vent. Per patients Jame [phone] prior to admission patient lived home with him and was independent. Patient had no need for DME. Patients PCP is was Dr Singh in [place]. Per Jame patient was having pain and shortness of breath so patient returned to ER and was admitted. Patient was just discharged from the hospital recently. I informed Jame that patients post discharge needs to be determined after extubation and prior to discharge. I informed Jame I will continue to monitor and follow up as appropriate for any post discharge needs. Jame verbalized understanding. Addendum: 03/24/20 at 1423 by Mary GIFFORD Amended: Links added.
--- NOTE | 2020-03-24 14:56 | NUR ---
Patient extubated by Monika , placed on 30% cool aerosol, saturation 100%, tolerating well. Will continue to monitor.
--- NOTE | 2020-03-24 14:56 | NUR ---
Respiratory note: PT EXTUBATED PER ORDERS AFTER WEANING PARAMETERS AND ABG RESULTS WERE GIVEN. PT EXTUBATED AND PLACED ON COOL AEROSOL 8L 30% FIO2. HR 99, RR 13, POX 100%, BP 131/83, TEMP 100.2. PT'S BREATH SOUNDS ARE CLEAR/DIMINISHED , NO STRIDOR NOTED. NO SOB OR DISTRESS NOTED. RN AT BEDSIDE. WILL CONTINUE TO MONITOR PT.
--- NOTE | 2020-03-24 15:16 | NUR ---
Dr Jarrett at bedside, updated on patient's status. Informed of patient's moderate to severe RT chest pain. Patient seen and examined. Will carry out new orders.
--- NOTE | 2020-03-24 17:43 | NUR ---
Received call from patient's Jame who's able to provide password. Updated on patient's status and POC, verbalized understanding. All question and concerns addressed.
--- NOTE | 2020-03-24 21:15 | NUR ---
PATIENT PASSED BEDSIDE SWALLOW ASSESSMENT. PATIENT AWAKE AND ALERT, CLEAR VOICE, AND ABLE TO COUGH. PATIENT ABLE TO INTAKE LIQUIDS WITHOUT DIFFICULTY.
[2020-03-24] MEDS: ACETAMINOPHEN 325 MG TAB PO PRN (21:24)
--- NOTE | 2020-03-24 21:52 | NUR ---
PATIENT TOLERATING ORAL INTAKE, PATIENT HAD CUP OF BEEF BROTH WITHOUT ISSUE.
[2020-03-24] MEDS: TOPIRAMATE 100 MG TAB PO SCH (22:01)
[2020-03-24] MEDS: HYDROcodone-ACET 5/325MG TAB PO PRN (23:55)
[2020-03-25] VITALS (56 sets, daily range): BP systolic 97–127; BP diastolic 54–76
[2020-03-25] MEDS: MORPHINE SULF INJ 2 MG/ML SYRINGE 1ML IV PRN ×3 (01:59→19:49)
[2020-03-25] MEDS: IPRATROPIUM BROM 0.5 MG/2.5ML INH SOL NEB SCH ×8 (02:20→22:22)
[2020-03-25] MEDS: ALBUTEROL SULF 2.5 MG/0.5ML(0.5%) NEB SOLN NEB SCH ×8 (02:20→22:23)
[2020-03-25] MEDS: MEROPENEM 1GM IVPB 100 ML IV SCH ×3 (03:16→18:34)
[2020-03-25 03:55] LABS: Basophils # (auto) 0 10 ^3/uL (0-0.2); Basophils % (auto) 0.5 % (0.0-2.0); Eosinophils # (auto) 0.2 10 ^3/uL (0-0.8); Hematocrit 27.4 % (36.0-46.0); Hemoglobin 8.6 g/dL (12.2-16.2); Mean Corpuscular Hemoglobin 28.8 pg (28.0-32.0); Monocytes # (auto) 0.8 10 ^3/uL (0-1.3)
[2020-03-25 03:59] LABS: Eosinophils % (auto) 3.8 % (0.0-7.0); Lymphocytes # (auto) 1.8 10 ^3/uL (0.4-5.4); Lymphocytes % (auto) 28.4 % (10.0-50.0); Mean Corpuscular Hgb Conc. 31.6 g/dL (32.0-36.0); Mean Corpuscular Volume 91.2 fL (80.0-100.0); Neutrophils # (auto) 3.5 10 ^3/uL (1.6-8.6); Neutrophils % (auto) 54.3 % (37.0-80.0); Platelet Count (auto) 701 10^3/uL (140-450); Red Cell Distribution Width 16.4 % (11.8-14.3); White Blood Cell 6.4 10^3/uL (4.4-10.8)
[2020-03-25 04:13] LABS: Calcium 7.9 mg/dL (8.5-10.1)
[2020-03-25 04:16] LABS: BUN/Creatinine Ratio 23.3
[2020-03-25] MEDS: HYDROcodone-ACET 5/325MG TAB PO PRN ×3 (05:11→23:24)
[2020-03-25] MEDS: InsuLIN REG 1unit/0.01ml Soln (100units/ml) SC SCH ×4 (06:11→22:00)
[2020-03-25] MEDS: ACCU-CHEK COMFORT CURVE STRIP VI SCH ×4 (07:00→22:00)
[2020-03-25] MEDS: FERROUS SULFATE 325 MG TAB PO SCH ×2 (08:03→17:56)
[2020-03-25] MEDS: ACETAMINOPHEN 325 MG TAB PO PRN (08:09)
[2020-03-25] MEDS: PANTOPRAZOLE 40 MG/10 ML VIAL INJ IV SCH (09:52)
[2020-03-25] MEDS: ENOXAPARIN SOD 40 MG/0.4 ML SYRINGE SC SCH (09:53)
[2020-03-25] MEDS: lamoTRIgine 100 MG TAB PO SCH (09:53)
[2020-03-25] MEDS: SODIUM CHLOR 0.9% PF (SALINE LOCK) 10ML VIAL/SYR IV SCH ×2 (09:54→22:00)
[2020-03-25] MEDS: SODIUM CHLORIDE 0.9% 1,000 ML IV SCH (10:00)
--- NOTE | 2020-03-25 12:18 | NUR ---
Nutrition Assessment Notes Please refer to link for full assessment notes. Est Energy needs: 7725-0730 kcals (25-30 kcal/kgBW) Est Protein needs: 43-54 gms/day (0.8-1.0 gm/kgBW) Will continue to monitor and reassess prn. Addendum: 03/25/20 at [address] Amended: Links added.
--- NOTE | 2020-03-25 17:00 | NUR ---
PATIENT TRANSFERRED TO ROOM 220B. PATIENT CHEST TUBE ATTACHED TO SXN SHOWED FLOOR NURSE HOW TO PROPERLY ATTACH SXN AND TO KEEP CHEST TUBE SXN CONSTANT.
--- NOTE | 2020-03-25 17:10 | NUR ---
RECEIVED PATIENT PATIENT RECEIVED FROM ICU AFTER REPORT GIVEN. PATIENT HAS A RIGHT-SIDED CHEST TUBE HOOKED TO LCS. ALL ALARMS AND SAFETY MEASURES IN PLACE. WILL CONTINUE TO MONITOR PATIENT Q1H AND PRN.
--- NOTE | 2020-03-25 19:40 | NUR ---
Patient complains of right sided pain Chest Tube insertion site.. Medicated with Morphine 1 mg IVP.
--- NOTE | 2020-03-25 20:00 | NUR ---
Opening Shift Note Assumed care of patient, awake and alert. No S/S of distress/SOB or pain. Instructed on POC and to call for assist PRN, will continue to monitor for changes Q1hr and PRN. Right chest tube intact to right chest; chest tube drainage system anchored to floor. Serous-drainage noted in tubing.
--- NOTE | 2020-03-25 22:23 | NUR ---
PT STATED SHE DOES NOT NEED A TREATMENT AT THIS TIME. PT VERBALIZED UNDERSTANDING TO CALL IF TX IS NEEDED OR BECOMES SOB.
[2020-03-25] MEDS: TOPIRAMATE 100 MG TAB PO SCH (23:21)
--- NOTE | 2020-03-26 03:00 | NUR ---
Patient complains of Right sided pain (Chest pain insertion site). Medicated with Morphine 1 mg IVP.
[2020-03-26] MEDS: HYDROcodone-ACET 5/325MG TAB PO PRN ×2 (03:09→12:37)
[2020-03-26] MEDS: MORPHINE SULF INJ 2 MG/ML SYRINGE 1ML IV PRN ×7 (03:31→23:06)
[2020-03-26] MEDS: MEROPENEM 1GM IVPB 100 ML IV SCH ×3 (03:32→18:23)
[2020-03-26 05:06] VITALS: BP 125/65
[2020-03-26 05:41] LABS: Basophils # (auto) 0 10 ^3/uL (0-0.2); Red Blood Cells 3.19 10^6/uL (4.0-5.20); White Blood Cell 6.7 10^3/uL (4.4-10.8)
[2020-03-26 05:44] LABS: Basophils % (auto) 0.6 % (0.0-2.0); Eosinophils # (auto) 0.3 10 ^3/uL (0-0.8); Eosinophils % (auto) 4.9 % (0.0-7.0); Hematocrit 28.6 % (36.0-46.0); Lymphocytes # (auto) 1.6 10 ^3/uL (0.4-5.4); Lymphocytes % (auto) 23.7 % (10.0-50.0); Mean Corpuscular Hemoglobin 28.3 pg (28.0-32.0); Mean Corpuscular Hgb Conc. 31.6 g/dL (32.0-36.0); Mean Corpuscular Volume 89.6 fL (80.0-100.0); Monocytes # (auto) 0.7 10 ^3/uL (0-1.3); Monocytes % (auto) 9.8 % (0.0-12.0); Neutrophils # (auto) 4.1 10 ^3/uL (1.6-8.6); Nucleated Red Blood Cells % 0.1 %; Red Cell Distribution Width 16.5 % (11.8-14.3)
[2020-03-26 05:46] LABS: Platelet Count (auto) 952 10^3/uL (140-450)
--- NOTE | 2020-03-26 06:07 | NUR ---
Received critical lab result: Plt - 952. Hospitalist notified. New order received: ASA 162 mg po daily.
[2020-03-26] MEDS: IPRATROPIUM BROM 0.5 MG/2.5ML INH SOL NEB SCH ×5 (06:08→23:30)
[2020-03-26] MEDS: ALBUTEROL SULF 2.5 MG/0.5ML(0.5%) NEB SOLN NEB SCH ×5 (06:08→23:30)
--- NOTE | 2020-03-26 06:30 | NUR ---
Report given to day shift RNEvangelina.
--- NOTE | 2020-03-26 06:30 | NUR ---
Patient complains of right sided pain 12/20. Medicated with [place] one tab.
[2020-03-26] MEDS: FERROUS SULFATE 325 MG TAB PO SCH ×2 (07:48→17:38)
--- NOTE | 2020-03-26 08:00 | NUR ---
Opening Note Assumed pt care from NOC RN. Pt is a/ox4 with no s/s of distress or SOB. Pt is currently sitting upright in bed with mild c/o back pain 08/20, discussed pain relieving aids. Cruz is present, draining to gravity and free of kinks. Chest tube is present to R side on hooked on to suction. Drainage is serous/sanguineous. Thoracotomy dressing is clean dry and intact. Discussed POC with pt, pt verbalized understanding. Safety measures maintained with call light within reach, bed in lowest position and side rails up. Will continue to monitor.
--- NOTE | 2020-03-26 08:32 | NUR ---
IV D/C IV to pt's L FA removed. Catheter was removed fully intact. Site is asymptomatic. Pressure dressing applied to site. Will continue to monitor.
[2020-03-26 08:35] VITALS: BP 121/76
[2020-03-26] MEDS: PANTOPRAZOLE 40 MG/10 ML VIAL INJ IV SCH (08:51)
[2020-03-26] MEDS: ENOXAPARIN SOD 40 MG/0.4 ML SYRINGE SC SCH (08:51)
[2020-03-26] MEDS: lamoTRIgine 100 MG TAB PO SCH (08:52)
[2020-03-26] MEDS: ASPirin 81 mg TAB PO SCH (08:52)
[2020-03-26] MEDS: SODIUM CHLOR 0.9% PF (SALINE LOCK) 10ML VIAL/SYR IV SCH ×2 (08:53→21:48)
--- NOTE | 2020-03-26 10:18 | NUR ---
DR Gonzales at Bedside MD to see pt. Discussed POC with pt. New orders given. Will implement and continue to monitor.
[2020-03-26] MEDS ORDERED: ZOLPIDEM TARTRATE 5 MG TAB PO ONE (10:30)
[2020-03-26] MEDS: DOCUSATE SOD 100 MG CAP PO PRN (10:35)
[2020-03-26] MEDS: ACCU-CHEK COMFORT CURVE STRIP VI SCH ×3 (11:05→21:41)
[2020-03-26] MEDS: InsuLIN REG 1unit/0.01ml Soln (100units/ml) SC SCH ×3 (11:10→21:41)
[2020-03-26 12:56] VITALS: BP 105/63
--- NOTE | 2020-03-26 16:10 | NUR ---
UNABLE TO GIVE TX., AT 1400, DUE TO EXTUBATION AND TRANSPORT TO ICU, WILL SEE PT. AT NEXT SCHEDULED TIME.
[2020-03-26 16:52] VITALS: BP 122/86
--- NOTE | 2020-03-26 17:53 | NUR ---
Chest Tube Output 100mL of serous/sanguinous drainage from chest tube upon today's shift. Chest tube currently still hooked up to suction and free of kinks.
--- NOTE | 2020-03-26 19:35 | NUR ---
Opening Note Assumed care of patient. Pt is a/o x4 with no s/s of respiratory distress. Pt is reporting pain 10/10 and will be medicated per dr's order. Cruz is patent, draining to gravity, and free of kinks. Chest tube is present to R side, patent, and hooked on to suction. Drainage is serous/sanguineous. Thoracotomy dressing is clean, dry, and intact. POC discussed with the pt, pt verbalized understanding. Safety measures maintained with call light within reach, bed in lowest position, and side rails up x 2. Will continue to monitor Q1H and/or PRN.
[2020-03-26] MEDS: TOPIRAMATE 100 MG TAB PO SCH (21:47)
[2020-03-26 22:29] VITALS: BP 108/67
--- NOTE | 2020-03-26 22:34 | NUR ---
Care endorsed to DEMARCO Vasquez
--- NOTE | 2020-03-26 22:35 | NUR ---
ASSUME CARE FROM DEMARCO COOPER. RECEIVED REPORT.
--- NOTE | 2020-03-26 22:37 | NUR ---
Assumed care of patient, awake and alert X4. No S/S of distresS. Requested for pain medication with pain score of 9/10. Chest tube in place, clean and dry on insertion site, draining and patent. Right upper arm PICC line triple lumen is clean and dry and intact, flushing good with good blood return for 3 lumens. Education given on how to use incentive spirometry and keep head of the bed elevated especially when eating or drinking. Bed in low locked position, call light within reach, nonskid socks on, bed alarm on, siderails up x2. Instructed on POC and to call for assist PRN, will continue to monitor for changes Q1hr and PRN. Addendum: 03/27/20 at 0626 by RAKESH AGUILERA RN RN CORRECTION: NO BLOOD RETURN ON RIGHT UPPER ARM PICC 3 LUMENS.
--- NOTE | 2020-03-27 00:11 | NUR ---
WOUND CARE TO COCCYX. PATIENT TOLERATED.
--- NOTE | 2020-03-27 00:12 | NUR ---
TURN PATIENT TO RIGHT SIDE. PATIENT TOLERATED.
[2020-03-27] MEDS: ALBUTEROL SULF 2.5 MG/0.5ML(0.5%) NEB SOLN NEB SCH ×6 (02:00→22:57)
[2020-03-27] MEDS: IPRATROPIUM BROM 0.5 MG/2.5ML INH SOL NEB SCH ×6 (02:00→22:57)
[2020-03-27] MEDS: MEROPENEM 1GM IVPB 100 ML IV SCH ×3 (03:04→18:23)
[2020-03-27] MEDS: MORPHINE SULF INJ 2 MG/ML SYRINGE 1ML IV PRN ×9 (03:05→22:47)
--- NOTE | 2020-03-27 03:05 | NUR ---
PATIENT HAD A PAIN OF 10/10 ON HER RIGHT CHEST TUBE SITE. PAIN MEDS GIVEN. TOLERATED. WILL CONTINUE TO MONITOR.
[2020-03-27 05:30] VITALS: BP 100/63
--- NOTE | 2020-03-27 06:15 | NUR ---
PICTURE OF WOUND TAKEN. OLD SCAB HAD FALLEN OFF. NOW OPEN WOUND TO SACRUM.
[2020-03-27] MEDS: ACCU-CHEK COMFORT CURVE STRIP VI SCH ×4 (06:24→22:33)
[2020-03-27] MEDS: InsuLIN REG 1unit/0.01ml Soln (100units/ml) SC SCH ×4 (06:24→22:00)
[2020-03-27 06:39] LABS: Basophils # (auto) 0 10 ^3/uL (0-0.2); Eosinophils # (auto) 0.3 10 ^3/uL (0-0.8); Hemoglobin 8.8 g/dL (12.2-16.2); Lymphocytes # (auto) 2.1 10 ^3/uL (0.4-5.4); Mean Corpuscular Volume 90.8 fL (80.0-100.0); Neutrophils # (auto) 1.8 10 ^3/uL (1.6-8.6); Nucleated Red Blood Cells % 0.1 %
[2020-03-27 06:42] LABS: Basophils % (auto) 0.7 % (0.0-2.0); Hematocrit 28.4 % (36.0-46.0); Lymphocytes % (auto) 44.2 % (10.0-50.0); Mean Corpuscular Hgb Conc. 30.8 g/dL (32.0-36.0); Monocytes # (auto) 0.5 10 ^3/uL (0-1.3); Monocytes % (auto) 11.3 % (0.0-12.0); Neutrophils % (auto) 37.8 % (37.0-80.0); Red Blood Cells 3.13 10^6/uL (4.0-5.20); Red Cell Distribution Width 16.5 % (11.8-14.3); White Blood Cell 4.7 10^3/uL (4.4-10.8)
--- NOTE | 2020-03-27 06:52 | NUR ---
Chest Tube Output 40 mL of serous/sanguinous drainage from chest tube PM shift. Chest tube currently still hooked up to suction and free of kinks.
[2020-03-27 06:55] LABS: Potassium 3.8 mmol/L (3.5-5.1)
[2020-03-27 06:59] LABS: Albumin 1.4 g/dL (3.4-5.0)
--- NOTE | 2020-03-27 07:16 | NUR ---
CLOSING SHIFT EVENT REPORT GIVEN TO AM NURSE. PATIENT NO SOB AND NO DISTRESS SEEN. BED IN LOW LOCKED POSITION, BED ALARM ON, SIDE RAILS UP X2, CALL LIGHT WITHIN REACH.
[2020-03-27] MEDS: FERROUS SULFATE 325 MG TAB PO SCH ×2 (07:21→17:42)
--- NOTE | 2020-03-27 07:34 | NUR ---
Opening Note Assumed pt care from NOC RN. Pt is a/ox4 with no s/s of distress or SOB. Pt is currently sitting upright in bed with mild c/o pain to back, 08/20, discussed pain aids. Chest tube is in place to right side, free of kinks and placed on suction. Dressing to right right of chest is clean, dry and intact. Cruz is present, free of kinks and is draining to gravity. Discussed POC with pt; pt verbalized understanding. Safety measures maintained with call light within reach, bed in lowest position and side rails up. Will continue to monitor for changes.
[2020-03-27 07:46] LABS: Platelet Count (auto) 800 10^3/uL (140-450)
--- NOTE | 2020-03-27 07:56 | NUR ---
Critical Lab Result Received critical lab value of 800 platelets. Previous platelet count was 952. Pt is currently on ASA 162 as well as Lovenox. Will continue to monitor and notify MD upon rounding.
[2020-03-27 08:40] VITALS: BP 95/53
[2020-03-27] MEDS: ENOXAPARIN SOD 40 MG/0.4 ML SYRINGE SC SCH (09:04)
[2020-03-27] MEDS: DOCUSATE SOD 100 MG CAP PO PRN (09:04)
[2020-03-27] MEDS: PANTOPRAZOLE 40 MG/10 ML VIAL INJ IV SCH (09:04)
[2020-03-27] MEDS: ASPirin 81 mg TAB PO SCH (09:04)
[2020-03-27] MEDS: SODIUM CHLOR 0.9% PF (SALINE LOCK) 10ML VIAL/SYR IV SCH ×2 (09:04→22:33)
[2020-03-27] MEDS: lamoTRIgine 100 MG TAB PO SCH (09:05)
--- NOTE | 2020-03-27 09:53 | NUR ---
Dr Gonzales at Bedside MD to see pt. Discussed POC with pt. New orders. Will implement and continue to monitor.
[2020-03-27] MEDS: HYDROcodone-ACET 5/325MG TAB PO PRN ×3 (10:01→20:28)
--- NOTE | 2020-03-27 11:02 | NUR ---
Nutrition Followup Notes Pt wt is 54.1 kg Pt was awake when rounded this morning. Pt reported feeling well, no complaints. Pt is with a CCHO 75g diet, appetite is good aeb ave 88% PO intake per RN doc. Pt is happy with the food. Est Energy needs: 0090-9629 kcals (25-30 kcal/kgBW) Est Protein needs: 43-54 gms/day (0.8-1.0 gm/kgBW) Will continue to monitor and reassess prn. LABS: CA 8.0 L. ALB 1.4 L GI: Pt had 1 BM today per RN doc BS: 19 low risk. Refer to wound assessment report for further details PES: 1) Increased nutrient needs r/t pt is with a restricted diet aeb pt is with a Clear Liquid diet 2) Altered nutrition related lab values r/t current medical condition aeb hypoglycemia, hypocalcemia, hypoalbuminemia Comments Will continue to monitor PO status, skin status, pertinent labs and weight trends. Will f/u in 2-3 days 1) Continue to closely monitor pt PO intake to meet at least 75% of meals 2) Gradually advance pt to a CCHO 45g diet as tolerated and per MD approval 3) If albumin continues trending down, consider Prostat 1 pkt BID 4) Continue current plan of care
[2020-03-27 13:30] VITALS: BP 103/57
[2020-03-27 16:56] VITALS: BP 105/60
--- NOTE | 2020-03-27 18:47 | NUR ---
AT BEDSIDE FOR MED [facility] TX. BS AUSCULTATED DIMINISHED T/O, FINE CRACKLES HEARD T/O RLL FIELD. POX 97-100% ON RA, RR16-18, HR 90S. WILL CONTINUE TO MONITOR.
--- NOTE | 2020-03-27 19:19 | NUR ---
Chest Tube Output Total output, 40mL
[2020-03-27 22:00] VITALS: BP 94/56
[2020-03-27] MEDS: TOPIRAMATE 100 MG TAB PO SCH (22:33)
--- NOTE | 2020-03-27 23:00 | NUR ---
AT BESIDE FOR [facility] TX.
--- NOTE | 2020-03-27 23:03 | NUR ---
POST MED NEB TX PT EXPRESSES SHE WOULD LIKE NOT LIKE TO BE WOKEN UP FOR HER NEXT BREATHING TX. RN FAWN COMMUNICATED OF PTS TX REFUSAL. RN ALSO AWARE IF PT EXPERIENCES ANY SOB OR CONCERN WITH HER BREATHING I CAN BE PAGED AT ANY TIME.
[2020-03-27] MEDS: ZOLPIDEM TARTRATE 5 MG TAB PO PRN (23:13)
[2020-03-28] MEDS: ALBUTEROL SULF 2.5 MG/0.5ML(0.5%) NEB SOLN NEB SCH ×6 (02:00→22:18)
[2020-03-28] MEDS: IPRATROPIUM BROM 0.5 MG/2.5ML INH SOL NEB SCH ×6 (02:00→22:18)
[2020-03-28] MEDS: MEROPENEM 1GM IVPB 100 ML IV SCH ×3 (02:58→18:17)
[2020-03-28] MEDS: MORPHINE SULF INJ 2 MG/ML SYRINGE 1ML IV PRN ×5 (04:06→18:16)
[2020-03-28 04:24] VITALS: BP 113/61
[2020-03-28 06:27] LABS: Hematocrit 26.6 % (36.0-46.0); Lymphocytes # (auto) 1.8 10 ^3/uL (0.4-5.4); Neutrophils # (auto) 2.2 10 ^3/uL (1.6-8.6); Nucleated Red Blood Cells % 0.1 %; Red Cell Distribution Width 16.9 % (11.8-14.3)
[2020-03-28 06:29] LABS: Basophils # (auto) 0.1 10 ^3/uL (0-0.2); Basophils % (auto) 1.2 % (0.0-2.0); Eosinophils # (auto) 0.3 10 ^3/uL (0-0.8); Hemoglobin 8.5 g/dL (12.2-16.2); Lymphocytes % (auto) 36.8 % (10.0-50.0); Mean Corpuscular Hemoglobin 28.9 pg (28.0-32.0); Mean Corpuscular Hgb Conc. 31.8 g/dL (32.0-36.0); Mean Corpuscular Volume 90.7 fL (80.0-100.0); Monocytes # (auto) 0.5 10 ^3/uL (0-1.3); Red Blood Cells 2.94 10^6/uL (4.0-5.20)
[2020-03-28] MEDS: InsuLIN REG 1unit/0.01ml Soln (100units/ml) SC SCH ×4 (06:29→21:40)
[2020-03-28] MEDS: ACCU-CHEK COMFORT CURVE STRIP VI SCH ×4 (06:29→21:41)
[2020-03-28 06:39] LABS: Potassium 4.3 mmol/L (3.5-5.1)
[2020-03-28 06:46] LABS: BUN/Creatinine Ratio 27.3; Calcium 8.2 mg/dL (8.5-10.1)
[2020-03-28] MEDS: HYDROcodone-ACET 5/325MG TAB PO PRN (06:53)
[2020-03-28 07:18] LABS: Platelet Count (auto) 758 10^3/uL (140-450)
--- NOTE | 2020-03-28 08:00 | NUR ---
OPENING SHIFT NOTE ASSUMED CARE OF PATIENT AWAKE AND ALERT. NO S/S OF DISTRESS NOTED. RIGHT-SIDED CHEST TUBE IN PLACE HOOKED TO LCS, DRAINING SEROSANGUINEOUS DRAINAGE. PATIENT UPDATED ON POC FOR THE DAY AND ALL QUESTIONS ANSWERED. BED IS IN LOWEST, LOCKED POSITION WITH SIDE RAILS UP X2 AND CALL LIGHT WITHIN REACH. WILL CONTINUE TO MONITOR Q1H AND PRN.
[2020-03-28 08:44] VITALS: BP 104/62
[2020-03-28] MEDS: PANTOPRAZOLE 40 MG/10 ML VIAL INJ IV SCH (09:33)
[2020-03-28] MEDS: FERROUS SULFATE 325 MG TAB PO SCH ×2 (09:33→17:39)
[2020-03-28] MEDS: ASPirin 81 mg TAB PO SCH (09:34)
[2020-03-28] MEDS: SODIUM CHLOR 0.9% PF (SALINE LOCK) 10ML VIAL/SYR IV SCH ×2 (09:34→21:40)
[2020-03-28] MEDS: ENOXAPARIN SOD 40 MG/0.4 ML SYRINGE SC SCH (09:34)
[2020-03-28] MEDS: lamoTRIgine 100 MG TAB PO SCH (09:35)
--- NOTE | 2020-03-28 10:37 | NUR ---
AT BEDSIDE DR DUPREE AT BEDSIDE ROUNDING ON PATIENT. NEW ORDERS RECEIVED, READ BACK AND VERIFIED. WILL CARRY OUT AND CONTINUE CARE.
[2020-03-28] MEDS ORDERED: levoFLOXacin 500 MG TAB PO ONE (10:45)
--- NOTE | 2020-03-28 10:51 | NUR ---
AT BEDSIDE DR ZAYAS AT BEDSIDE UPDATING PATIENT ON POC. WILL CONTINUE CARE.
[2020-03-28 13:00] VITALS: BP 100/63
--- NOTE | 2020-03-28 16:19 | NUR ---
PT Pt refused Physical Therapy this afternoon. . Signed: 03/28/20 at 1620 by JUNI MATTHEWS PTT <Co-Signature Required> Co-Signed: 03/28/20 at 1620 by Chidi Crook PT Addendum: 03/28/20 at 1620 by JUNI MATTHEWS PTT Amended: Links added.
[2020-03-28 16:32] VITALS: BP 101/63
[2020-03-28] MEDS: KETOROLAC TROMETH 30 MG/ML 1ML VIAL IV PRN ×2 (16:40→22:48)
--- NOTE | 2020-03-28 19:30 | NUR ---
Opening note Assumed care of patient, patient is alert x4. no sob or distress noted. Bed is locked in lowest position, side rails up x2. POC discussed. No questions at this time. Chest tube is placed. Continuous bubbling is seen in the water chamber. checked patients dressing for any leakage. none detected. Patient has no sob. Patient states "that has been happening since earlier today. the previous nurse reinforced it with tape" Will ask someone else to check chest tube placement for second opinion. Will continue to monitor.
--- NOTE | 2020-03-28 21:00 | NUR ---
Chest tube Informed charge of chest tube to reassess. charge nurse said she will ask ICU head charge to see patient chest tube and why it is bubbling, may need to change container. patient has no sob or distress will continue to monitor.
[2020-03-28] MEDS: ACETAMINOPHEN 325 MG TAB PO PRN (21:34)
[2020-03-28] MEDS: QUEtiapine FUMARATE 100 MG TAB PO SCH (21:34)
[2020-03-28] MEDS: TOPIRAMATE 100 MG TAB PO SCH (21:34)
[2020-03-28 22:00] VITALS: BP 93/55
--- NOTE | 2020-03-29 | NUR ---
Dressing change to chest tube With the help Of Darvin PAL did a complete dressing change to right chest tube. Petroleum gauze applied to site. Covered with gauze pads. then with Tegaderm and taped with tape. Patient tolerated well. No bubbling in water chamber at this time. Will continue to monitor.
[2020-03-29] MEDS: ALBUTEROL SULF 2.5 MG/0.5ML(0.5%) NEB SOLN NEB SCH ×6 (02:00→22:24)
[2020-03-29] MEDS: IPRATROPIUM BROM 0.5 MG/2.5ML INH SOL NEB SCH ×6 (02:00→22:24)
--- NOTE | 2020-03-29 02:06 | NUR ---
Respiratory note: PT REFUSED SCHED MED NEB TX AT THIS TIME. PT IS RESTING WITH NO S/S OF SOB OR RESPIRATORY DISTRESS. WILL CONTINUE TO MONITOR.
[2020-03-29] MEDS: MEROPENEM 1GM IVPB 100 ML IV SCH ×3 (03:21→18:21)
[2020-03-29 05:00] VITALS: BP 105/64
--- NOTE | 2020-03-29 05:14 | NUR ---
Patient resting in bed patient resting in bed. no sob or distress noted. Will continue to monitor.
--- NOTE | 2020-03-29 06:30 | NUR ---
chest tube output Patient had 25 ml of serosanguineous output to chest tube. Patient resting in bed. No sob or distress noted.
[2020-03-29] MEDS: InsuLIN REG 1unit/0.01ml Soln (100units/ml) SC SCH (06:39)
[2020-03-29] MEDS: KETOROLAC TROMETH 30 MG/ML 1ML VIAL IV PRN ×3 (06:40→20:00)
[2020-03-29] MEDS: ACCU-CHEK COMFORT CURVE STRIP VI SCH (06:40)
[2020-03-29 08:58] VITALS: BP 89/45
[2020-03-29] MEDS: ASPirin 81 mg TAB PO SCH (09:33)
[2020-03-29] MEDS: FERROUS SULFATE 325 MG TAB PO SCH ×2 (09:33→18:11)
[2020-03-29] MEDS: levoFLOXacin 500 MG TAB PO SCH (09:33)
[2020-03-29] MEDS: SODIUM CHLOR 0.9% PF (SALINE LOCK) 10ML VIAL/SYR IV SCH ×2 (09:33→21:12)
[2020-03-29] MEDS: ENOXAPARIN SOD 40 MG/0.4 ML SYRINGE SC SCH (09:33)
[2020-03-29] MEDS: lamoTRIgine 100 MG TAB PO SCH (09:33)
[2020-03-29] MEDS: FAMOTIDINE 20 MG TAB PO SCH (09:34)
--- NOTE | 2020-03-29 11:02 | NUR ---
AT BEDSIDE DR ZAYAS AT BEDSIDE ROUNDING ON PATIENT.
[2020-03-29 13:00] VITALS: BP 96/67
[2020-03-29 16:34] VITALS: BP 94/57
--- NOTE | 2020-03-29 19:20 | NUR ---
Opening note Assumed care of patient, patient is alert and orientated x4. No sob or distress noted. Patient is laying in bed. Chest tube is draining to low intermittent suction. Bed is locked in lowest position, side rails up x2. POC reviewed, no questions at this time. Call light within reach, will continue to monitor q1hr and PRN.
--- NOTE | 2020-03-29 20:00 | NUR ---
Patient Belongings. Patient was moved to room 204 from room 220A, during day shift. Patient states her belongings were not in the room with her. A pair of brown boots, pants and a sweater and socks. Including her medical cared and ID. This RN checked both rooms thoroughly. I also checked the lost and found, as well as the nurses station. No belongings found. Will make charge nurse aware and pass it on to day shift RN.
[2020-03-29] MEDS: QUEtiapine FUMARATE 100 MG TAB PO SCH (21:13)
[2020-03-29] MEDS: TOPIRAMATE 100 MG TAB PO SCH (21:13)
[2020-03-29] MEDS: MORPHINE SULF INJ 2 MG/ML SYRINGE 1ML IV PRN (21:57)
--- NOTE | 2020-03-29 22:00 | NUR ---
Patient belongings found. Patient belongings found and patient now has them at bedside. Patient checked everything is in her bag.
[2020-03-29 22:12] VITALS: BP 133/84
--- NOTE | 2020-03-29 22:36 | NUR ---
Respiratory note: PT REQUESTED NOT TO BE WOKEN UP FOR 2AM MED NEB TX IF SLEEPING.
[2020-03-30] MEDS: ALBUTEROL SULF 2.5 MG/0.5ML(0.5%) NEB SOLN NEB SCH ×6 (02:00→22:00)
[2020-03-30] MEDS: IPRATROPIUM BROM 0.5 MG/2.5ML INH SOL NEB SCH ×6 (02:00→22:00)
[2020-03-30] MEDS: MEROPENEM 1GM IVPB 100 ML IV SCH ×3 (03:22→18:29)
[2020-03-30] MEDS: MORPHINE SULF INJ 2 MG/ML SYRINGE 1ML IV PRN (04:28)
[2020-03-30 05:02] VITALS: BP 99/62
[2020-03-30] MEDS: KETOROLAC TROMETH 30 MG/ML 1ML VIAL IV PRN ×3 (05:54→18:21)
--- NOTE | 2020-03-30 06:59 | NUR ---
Chest tube output 20 ML of serosanguineous chest tube output out. Patient is resting in bed. No sob or distress noted. Will let day shift RN know.
--- NOTE | 2020-03-30 07:05 | NUR ---
Respiratory note: PT REFUSED SCHEDULE [place] TX AT THIS TIME. NO SOB OR DISTRESS NOTED.
--- NOTE | 2020-03-30 07:18 | NUR ---
Closing note Endorsed care to day shift RN. No sob or distress noted.
--- NOTE | 2020-03-30 07:50 | NUR ---
Opening Shift Note Assumed care of patient, awake and alert. No S/S of distress/SOB or pain. Instructed on POC and to call for assist PRN, will continue to monitor for changes Q1hr and PRN. Bed locked in lowest position with two side rails up and call light in reach.
[2020-03-30 09:00] VITALS: BP 105/59
[2020-03-30] MEDS: ENOXAPARIN SOD 40 MG/0.4 ML SYRINGE SC SCH (09:05)
[2020-03-30] MEDS: ASPirin 81 mg TAB PO SCH (09:05)
[2020-03-30] MEDS: FERROUS SULFATE 325 MG TAB PO SCH ×2 (09:06→18:20)
[2020-03-30] MEDS: lamoTRIgine 100 MG TAB PO SCH (09:06)
[2020-03-30] MEDS: FAMOTIDINE 20 MG TAB PO SCH (09:06)
[2020-03-30] MEDS: levoFLOXacin 500 MG TAB PO SCH (09:06)
[2020-03-30] MEDS: SODIUM CHLOR 0.9% PF (SALINE LOCK) 10ML VIAL/SYR IV SCH ×2 (10:00→20:30)
--- NOTE | 2020-03-30 10:37 | NUR ---
Respiratory note: PT REFUSED [place] TX. NO SOB OR DISTRESS NOTED.
--- NOTE | 2020-03-30 10:52 | NUR ---
Nutrition Followup Notes Pt wt is 54.2 kg Pt was awake when rounded this morning. Pt reported feeling well, no complaints. Pt is with a CCHO 75g diet, appetite is good aeb ave 83% PO intake x 3 meals per RN doc. Pt with no s/s of distress or pain. Est Energy needs: 8193-7629 kcals (25-30 kcal/kgBW) Est Protein needs: 43-54 gms/day (0.8-1.0 gm/kgBW) Will continue to monitor and reassess prn. LABS: CA 8.2 L. ALB 1.4 L GI: Pt had 1 BM today per RN doc BS: 19 low risk. Refer to wound assessment report for further details PES: 1) Increased nutrient needs r/t pt is with a restricted diet aeb pt is with a Clear Liquid diet 2) Altered nutrition related lab values r/t current medical condition aeb hypoglycemia, hypocalcemia, hypoalbuminemia Comments Will continue to monitor PO status, skin status, pertinent labs and weight trends. Will f/u in 2-3 days 1) Continue to closely monitor pt PO intake to meet at least 75% of meals 2) Gradually advance pt to a CCHO 45g diet as tolerated and per MD approval 3) If albumin continues trending down, consider Prostat 1 pkt BID 4) Continue current plan of care
[2020-03-30 12:24] VITALS: BP 90/51
[2020-03-30] MEDS: HYDROcodone-ACET 5/325MG TAB PO PRN ×2 (13:59→20:30)
[2020-03-30 16:46] VITALS: BP 100/57
--- NOTE | 2020-03-30 18:57 | NUR ---
AT BEDSIDE FOR MED MILTON NESBITT.
[2020-03-30] MEDS: QUEtiapine FUMARATE 100 MG TAB PO SCH (20:30)
[2020-03-30] MEDS: TOPIRAMATE 100 MG TAB PO SCH (20:30)
[2020-03-30 22:00] VITALS: BP 88/50
--- NOTE | 2020-03-30 22:50 | NUR ---
AT BEDSIDE FOR MED NEB TX. PT COMMUNICATED SHE DID NOT WANT TO BE WOKEN UP FOR BREATHING TX. PT SLEEPING AT THIS TIME. DEMARCO JOSE COMMUNICATED ON PTS REFUSAL. RN AWARE I CAN BE PAGED AT ANY TIME PT HAS A CONCERN WITH BREATHING.
[2020-03-31] MEDS: IPRATROPIUM BROM 0.5 MG/2.5ML INH SOL NEB SCH ×6 (02:00→22:28)
[2020-03-31] MEDS: ALBUTEROL SULF 2.5 MG/0.5ML(0.5%) NEB SOLN NEB SCH ×6 (02:00→22:28)
[2020-03-31] MEDS: MEROPENEM 1GM IVPB 100 ML IV SCH ×3 (03:13→18:05)
[2020-03-31] MEDS: KETOROLAC TROMETH 30 MG/ML 1ML VIAL IV PRN ×4 (03:14→21:13)
[2020-03-31 03:54] VITALS: BP 88/55
[2020-03-31 05:12] VITALS: BP 124/71
[2020-03-31 05:54] LABS: Basophils # (auto) 0 10 ^3/uL (0-0.2); Eosinophils # (auto) 0.3 10 ^3/uL (0-0.8); Hemoglobin 8.2 g/dL (12.2-16.2); Lymphocytes # (auto) 2.1 10 ^3/uL (0.4-5.4); Mean Corpuscular Volume 91.4 fL (80.0-100.0); Monocytes # (auto) 0.6 10 ^3/uL (0-1.3)
[2020-03-31 05:56] LABS: Basophils % (auto) 0.4 % (0.0-2.0); Eosinophils % (auto) 5.4 % (0.0-7.0); Hematocrit 26.3 % (36.0-46.0); Lymphocytes % (auto) 36.8 % (10.0-50.0); Mean Corpuscular Hemoglobin 28.4 pg (28.0-32.0); Mean Corpuscular Hgb Conc. 31.1 g/dL (32.0-36.0); Monocytes % (auto) 9.8 % (0.0-12.0); Neutrophils # (auto) 2.8 10 ^3/uL (1.6-8.6); Neutrophils % (auto) 47.6 % (37.0-80.0); Platelet Count (auto) 631 10^3/uL (140-450); Red Blood Cells 2.88 10^6/uL (4.0-5.20); Red Cell Distribution Width 19.6 % (11.8-14.3); White Blood Cell 5.8 10^3/uL (4.4-10.8)
[2020-03-31] MEDS: HYDROcodone-ACET 5/325MG TAB PO PRN ×5 (06:01→22:25)
[2020-03-31 06:17] LABS: BUN/Creatinine Ratio 53.1; Calcium 8.2 mg/dL (8.5-10.1)
--- NOTE | 2020-03-31 07:30 | NUR ---
Opening Shift Note Assumed care of patient, awake and alert. No S/S of distress/SOB but complains of pain, will medicate as ordered. Instructed on POC and to call for assist PRN, will continue to monitor for changes Q1hr and PRN. Bed in low and locked position, rails up x2, no-slip socks on. Chest tube in place, draining serosanguineous to collection container, bubbling noted to chest tube device, Charge nurse, Arabella notified and per patient and report, it has been intermittently bubbling, all MD are notified. Will continue to monitor patient for sob or distress.
[2020-03-31 09:00] VITALS: BP 98/61
[2020-03-31] MEDS: ENOXAPARIN SOD 40 MG/0.4 ML SYRINGE SC SCH (09:09)
[2020-03-31] MEDS: FAMOTIDINE 20 MG TAB PO SCH (09:10)
[2020-03-31] MEDS: FERROUS SULFATE 325 MG TAB PO SCH ×2 (09:10→18:05)
[2020-03-31] MEDS: ASPirin 81 mg TAB PO SCH (09:10)
[2020-03-31] MEDS: lamoTRIgine 100 MG TAB PO SCH (09:10)
[2020-03-31] MEDS: levoFLOXacin 500 MG TAB PO SCH (09:10)
[2020-03-31] MEDS: SODIUM CHLOR 0.9% PF (SALINE LOCK) 10ML VIAL/SYR IV SCH ×2 (09:16→21:49)
[2020-03-31] MEDS: DOCUSATE SOD 100 MG CAP PO PRN (09:59)
--- NOTE | 2020-03-31 10:46 | NUR ---
DR ZAMORANOHA AT BEDSIDE NO NEW ORDERS, AWAITING DR DUPREE TO CHECK CHEST TUBE.
[2020-03-31 13:00] VITALS: BP 96/54
--- NOTE | 2020-03-31 15:00 | NUR ---
PICC Line Dressing Changes PICC line dressing change done with a sterile technique. Cleansed with chloraprep scrub. Stat lock, and bio-patch as available. Occlusive dressing applied. Patient tolerated well.
--- NOTE | 2020-03-31 16:10 | NUR ---
PAGE TO DR ZAYAS PATIENT REQUESTING ALTERNATIVE PAIN MEDICATION, STATES THAT THE NORCO ISN'T HELPING MUCH, SHE WAS DISCHARGED ON PERCOCET 7.5 HER LAST VISIT. AWAITING CALL BACK.
[2020-03-31 17:00] VITALS: BP 104/68
--- NOTE | 2020-03-31 19:20 | NUR ---
Opening Shift Note Assumed care of patient, awake and alert. No S/S of distress/SOB or pain. Instructed on POC and to call for assistance PRN, will continue to monitor for changes Q1hr and PRN. Chest tube to right side patent and draining. Safety precautions in place, bed is in lowest position and locked, bed rails 2x.
[2020-03-31] MEDS: QUEtiapine FUMARATE 100 MG TAB PO SCH (21:13)
[2020-03-31] MEDS: TOPIRAMATE 100 MG TAB PO SCH (21:13)
[2020-03-31 22:00] VITALS: BP 103/58
[2020-03-31] MEDS: ZOLPIDEM TARTRATE 5 MG TAB PO PRN (22:25)
[2020-04-01] MEDS: ALBUTEROL SULF 2.5 MG/0.5ML(0.5%) NEB SOLN NEB SCH ×6 (02:00→21:37)
[2020-04-01] MEDS: IPRATROPIUM BROM 0.5 MG/2.5ML INH SOL NEB SCH ×6 (02:00→21:37)
--- NOTE | 2020-04-01 02:03 | NUR ---
PT REQUESTED TO SLEEP AT THIS TIME. WILL CONTINUE WITH NEXT SCHEDULED MED NEB TX.
[2020-04-01] MEDS: MEROPENEM 1GM IVPB 100 ML IV SCH ×2 (03:08→10:59)
[2020-04-01 05:00] VITALS: BP 107/67
[2020-04-01] MEDS: KETOROLAC TROMETH 30 MG/ML 1ML VIAL IV PRN ×3 (05:50→20:31)
--- NOTE | 2020-04-01 07:15 | NUR ---
End of Shift Note Endorsed care to dayshift RN. At this time patient has no s/s of distress or SOB.
--- NOTE | 2020-04-01 07:30 | NUR ---
Opening Shift Note Assumed care of patient, awake and alert. No S/S of distress/SOB or pain. Instructed on POC and to call for assist PRN, will continue to monitor for changes Q1hr and PRN. Bed in low and locked position, rails up x2, no-slip socks on. Chest tube connected to low continuous suction, no complaints of pain, distress, or shortness of breath.
[2020-04-01] MEDS: HYDROcodone-ACET 5/325MG TAB PO PRN (07:49)
[2020-04-01 09:00] VITALS: BP 102/65
[2020-04-01] MEDS: levoFLOXacin 500 MG TAB PO SCH (09:12)
[2020-04-01] MEDS: ASPirin 81 mg TAB PO SCH (09:12)
[2020-04-01] MEDS: lamoTRIgine 100 MG TAB PO SCH (09:12)
[2020-04-01] MEDS: FAMOTIDINE 20 MG TAB PO SCH (09:12)
[2020-04-01] MEDS: FERROUS SULFATE 325 MG TAB PO SCH ×2 (09:13→18:05)
[2020-04-01] MEDS: ENOXAPARIN SOD 40 MG/0.4 ML SYRINGE SC SCH (09:13)
[2020-04-01] MEDS: SODIUM CHLOR 0.9% PF (SALINE LOCK) 10ML VIAL/SYR IV SCH ×2 (09:13→22:00)
--- NOTE | 2020-04-01 10:46 | NUR ---
DR DUPREE AT BEDSIDE PLAN TO SWITCH CHEST TUBE TO CONNECT TO HEIMLECH VALVE AND LEG BAG COLLECTING SYSTEM. EXPLAINED TO PATIENT SHE IS CONTINUING TO HAVE A LEAK AND REMOVING THE CHEST TUBE AT THIS TIME IS NOT APPROPRIATE. SUPPLIES READY IN ROOM FOR MD WHEN HE RETURNS.
[2020-04-01] MEDS: DOCUSATE SOD 100 MG CAP PO PRN (11:00)
--- NOTE | 2020-04-01 11:00 | NUR ---
DR ZAYAS AT BEDSIDE EXPLAINED PLAN TO PATIENT, INFORMED THAT SHE WILL NEED TO CONTINUE TO BE MONITORED AFTER SWITCH AND POSSIBLY HOME ON IV ANTIBIOTICS. ALL QUESTIONS ANSWERED.
[2020-04-01] MEDS: HYDROcodone-ACET 10/325MG TAB PO PRN ×2 (12:01→18:05)
[2020-04-01 13:00] VITALS: BP 101/57
--- NOTE | 2020-04-01 15:00 | NUR ---
DR DUPREE AT BEDSIDE ATTACHED HEMILECH VALVE TO CHEST TUBE, ORDERS TO ATTACH A LEG BAG FOR COLLECTION OF ANY DRAINAGE. REMOVED DRESSING TO CHEST TUBE INSERTION SITE, ORDERS TO LEAVE OPEN TO AIR.
[2020-04-01 17:00] VITALS: BP 113/70
[2020-04-01 22:00] VITALS: BP 118/67
[2020-04-01] MEDS: TOPIRAMATE 100 MG TAB PO SCH (22:58)
[2020-04-01] MEDS: QUEtiapine FUMARATE 100 MG TAB PO SCH (22:58)
[2020-04-01] MEDS: ZOLPIDEM TARTRATE 5 MG TAB PO PRN (23:02)
[2020-04-02] MEDS: ALBUTEROL SULF 2.5 MG/0.5ML(0.5%) NEB SOLN NEB SCH ×6 (02:00→22:41)
[2020-04-02] MEDS: IPRATROPIUM BROM 0.5 MG/2.5ML INH SOL NEB SCH ×6 (02:00→22:41)
--- NOTE | 2020-04-02 02:01 | NUR ---
Respiratory note: PT STATED SHE DID NOT WANT TO BE WOKEN UP FOR MED NEB TX. PT SLEEPING AT THIS TIME AND REFUSED TX. PT IN NO NOTABLE RESPIRATORY DISTRESS AT THIS TIME.
[2020-04-02 05:00] VITALS: BP 115/71
[2020-04-02] MEDS: KETOROLAC TROMETH 30 MG/ML 1ML VIAL IV PRN (07:34)
--- NOTE | 2020-04-02 07:49 | NUR ---
AT BEDSIDE DR DUPREE AT BEDSIDE CLEARING PATIENT FOR DISCHARGE.
[2020-04-02] MEDS: FERROUS SULFATE 325 MG TAB PO SCH ×2 (08:47→17:21)
[2020-04-02] MEDS: FAMOTIDINE 20 MG TAB PO SCH (08:47)
[2020-04-02] MEDS: lamoTRIgine 100 MG TAB PO SCH (08:48)
[2020-04-02] MEDS: ENOXAPARIN SOD 40 MG/0.4 ML SYRINGE SC SCH (08:48)
[2020-04-02] MEDS: ASPirin 81 mg TAB PO SCH (08:48)
[2020-04-02] MEDS: levoFLOXacin 500 MG TAB PO SCH (08:48)
[2020-04-02] MEDS: HYDROcodone-ACET 10/325MG TAB PO PRN ×3 (08:52→22:50)
[2020-04-02 09:00] VITALS: BP 109/65
[2020-04-02] MEDS: SODIUM CHLOR 0.9% PF (SALINE LOCK) 10ML VIAL/SYR IV SCH ×2 (10:00→21:10)
--- NOTE | 2020-04-02 11:10 | NUR ---
WOUND CARE NOTE: Wound care in to see patient for reevaluation of sacral skin integrity issue and skin integrity monitoring. Patient is resting in bed in Rm. 204. Patient is awake, alert and oriented. She's self turning and repositioning and her Baldemar score is 18. Patient is in no stated pain at this time. Patient's raised scar tissue to sacral is now open. Patient's nurse documented scabs noted and it came off, showing open wound to medial sacral/coccyx area. Patient's coccyx area noted with 1x0.5cm open full thickness wound with no measurable depth. Wound bed is, red, clean with pink, blanchable surrounding skin, no drainage/odor noted. Coccyx wound appears to be a resurface pressure injury. Anna care given, new photograph of wound taken, applied Z Guard cream and covered wound with Opti foam gentle dressing. Patient tolerated well, repositioned for comfort, sitting on bed. RECOMMENDATION: Continuation of all wound care orders MD prescribed, continue with skin/wound plan of care,continue monitoring by wound care while patient is hospitalized. Addendum: 04/02/20 at 1414 by Perla Garibay RN Amended: Links added.
--- NOTE | 2020-04-02 12:39 | NUR ---
Nutrition Followup Notes Pt wt is 59.0 kg Pt was sleeping with no family at bedside at time of rounds. Pt is CCHO 75g, soft diet with a good appetite aeb pt with 86% po intake of diet x 3 days per RN note Est Energy needs: 9460-5715 kcals (25-30 kcal/kgBW) Est Protein needs: 43-54 gms/day (0.8-1.0 gm/kgBW) Will continue to monitor and reassess prn. LABS: BUN 26H, Creat 0.49L, Alb 1.4L, Ca 8.2L GI: Pt had 2 BMs today per RN doc BS: 16 mod risk. Refer to wound assessment report for further details PES: Resolved1) Increased nutrient needs r/t pt is with a restricted diet aeb pt is with a Clear Liquid diet 2) Altered nutrition related lab values r/t current medical condition aeb hypoglycemia, hypocalcemia, hypoalbuminemia Comments Will continue to monitor PO status, skin status, pertinent labs and weight trends. Will f/u in 3-5 days 1) Continue to closely monitor pt PO intake to meet at least 75% of meals 2) If albumin continues trending down, consider Prostat 1 pkt BID 3) Continue current plan of care
[2020-04-02 13:00] VITALS: BP 101/64
[2020-04-02] MEDS: MORPHINE SULF INJ 2 MG/ML SYRINGE 1ML IV PRN ×2 (13:39→19:58)
[2020-04-02 17:00] VITALS: BP 118/70
--- NOTE | 2020-04-02 19:30 | NUR ---
Opening Shift Note Assumed care of patient, awake and alert. Reported pain, will give pain med. Instructed on POC and to call for assist PRN, will continue to monitor for changes Q1hr and PRN.
[2020-04-02] MEDS: QUEtiapine FUMARATE 100 MG TAB PO SCH (21:10)
[2020-04-02] MEDS: TOPIRAMATE 100 MG TAB PO SCH (21:10)
[2020-04-02 21:19] VITALS: BP 118/70
[2020-04-02 22:59] VITALS: BP 92/51
[2020-04-03] MEDS: ZOLPIDEM TARTRATE 5 MG TAB PO PRN ×2 (01:51→22:00)
[2020-04-03] MEDS: ALBUTEROL SULF 2.5 MG/0.5ML(0.5%) NEB SOLN NEB SCH ×8 (02:00→21:28)
[2020-04-03] MEDS: IPRATROPIUM BROM 0.5 MG/2.5ML INH SOL NEB SCH ×8 (02:00→21:27)
--- NOTE | 2020-04-03 02:00 | NUR ---
Respiratory note: PT REFUSED MED NEB TX AT THIS TIME STATING SHE DID NOT WANT TO BE WOKEN UP AND SHE FEELS FINE. NO S/S OF ANY RESPIRATORY DISTRESS NOTED. ADVISED PT TO CALL IF TX IS NEEDED.
[2020-04-03 05:45] VITALS: BP 96/56
--- NOTE | 2020-04-03 06:36 | NUR ---
Respiratory note: note: PT REFUSED MED NEB TX AT THIS TIME STATING SHE DID NOT WANT TO BE WOKEN UP AND SHE FEELS FINE. NO SOB OR RESPIRATORY DISTRESS NOTED.
[2020-04-03] MEDS: HYDROcodone-ACET 10/325MG TAB PO PRN ×2 (06:53→16:38)
--- NOTE | 2020-04-03 06:59 | NUR ---
zero output in CT
--- NOTE | 2020-04-03 07:16 | NUR ---
closing note endorsed care to DEMARCO Britt. No sign of pain/distress at this time
[2020-04-03] MEDS: MORPHINE SULF INJ 2 MG/ML SYRINGE 1ML IV PRN (08:49)
[2020-04-03] MEDS: FERROUS SULFATE 325 MG TAB PO SCH ×2 (08:50→17:29)
[2020-04-03 09:00] VITALS: BP 104/65
[2020-04-03] MEDS: SODIUM CHLOR 0.9% PF (SALINE LOCK) 10ML VIAL/SYR IV SCH ×2 (09:45→22:01)
[2020-04-03] MEDS: ASPirin 81 mg TAB PO SCH (09:45)
[2020-04-03] MEDS: lamoTRIgine 100 MG TAB PO SCH (09:45)
[2020-04-03] MEDS: ENOXAPARIN SOD 40 MG/0.4 ML SYRINGE SC SCH (09:50)
[2020-04-03] MEDS: FAMOTIDINE 20 MG TAB PO SCH (09:50)
[2020-04-03] MEDS: levoFLOXacin 500 MG TAB PO SCH (09:50)
--- NOTE | 2020-04-03 10:30 | NUR ---
Respiratory note: PT REFUSED MED NEB TX AT THIS TIME STATING SHE DID NOT WANT TO BE WAKE UP AND SHE FEELS FINE. NO SOB OR RESPIRATORY DISTRESS NOTED.
[2020-04-03 13:00] VITALS: BP 100/53
[2020-04-03] MEDS: KETOROLAC TROMETH 30 MG/ML 1ML VIAL IV PRN ×2 (13:56→22:00)
[2020-04-03 16:49] VITALS: BP 98/69
--- NOTE | 2020-04-03 19:20 | NUR ---
Opening shift note Assumed care of patient from day shift RN, Lorenza. Patient sitting up in bed A&Ox4, respirations even and non-labored with no s/s of distress at this time. Chest tube insertion Clean/Dry with sutures intact. Leg bag draining minimal dark brown fluid. Discussed POC with patient and advised patient to call for assistance to BSC/PRN, patient verbalized understanding. Safety precautions in place, bed in lowest locked position with 2 side rails up, call light within reach. Will continue to monitor Q1hr and PRN.
--- NOTE | 2020-04-03 21:28 | NUR ---
Respiratory note: PT REFUSED MED NEB TX AT THIS TIME. PT ASLEEP AND REQUESTED NO TX IF SLEEPING. PT IN NO RESPIRATORY DISTRESS AT THIS TIME. WILL CONTINUE TO MONITOR.
[2020-04-03 22:00] VITALS: BP 97/62
[2020-04-03] MEDS: TOPIRAMATE 100 MG TAB PO SCH (22:01)
[2020-04-03] MEDS: QUEtiapine FUMARATE 100 MG TAB PO SCH (22:01)
[2020-04-04] MEDS: ALBUTEROL SULF 2.5 MG/0.5ML(0.5%) NEB SOLN NEB SCH ×4 (02:00→14:07)
[2020-04-04] MEDS: IPRATROPIUM BROM 0.5 MG/2.5ML INH SOL NEB SCH ×4 (02:00→14:07)
--- NOTE | 2020-04-04 02:00 | NUR ---
MED NEB TX NOT GIVEN. PT REFUSED. NO RESPIRATORY DISTRESS NOTED.
[2020-04-04 05:41] VITALS: BP 105/65
--- NOTE | 2020-04-04 06:54 | NUR ---
Patient Resting Patient respirations even and non-labored with no s/s of distress at this time.
--- NOTE | 2020-04-04 07:30 | NUR ---
Opening Shift Note Assumed care of patient, awake and alert. No S/S of distress/SOB or pain. Bed in lowest/locked position, bed rails up x2, call light within reach. Instructed on POC and to call for assist PRN. Will continue to monitor for changes Q1hr and PRN.
[2020-04-04] MEDS: ENOXAPARIN SOD 40 MG/0.4 ML SYRINGE SC SCH (08:29)
[2020-04-04] MEDS: levoFLOXacin 500 MG TAB PO SCH (08:29)
[2020-04-04] MEDS: lamoTRIgine 100 MG TAB PO SCH (08:30)
[2020-04-04] MEDS: ASPirin 81 mg TAB PO SCH (08:31)
[2020-04-04] MEDS: HYDROcodone-ACET 10/325MG TAB PO PRN ×2 (08:31→13:46)
[2020-04-04] MEDS: FERROUS SULFATE 325 MG TAB PO SCH (08:32)
[2020-04-04] MEDS: FAMOTIDINE 20 MG TAB PO SCH (08:32)
[2020-04-04] MEDS: SODIUM CHLOR 0.9% PF (SALINE LOCK) 10ML VIAL/SYR IV SCH (08:32)
[2020-04-04 09:00] VITALS: BP 120/77
--- NOTE | 2020-04-04 10:40 | NUR ---
MD ROUNDS DR ZAYAS AT BEDSIDE. NEW ORDERS RECEIVED/WILL CARRY OUT. WILL CONTINUE TO MONITOR
--- NOTE | 2020-04-04 11:21 | NUR ---
Pt declined PT treatment stating she is going hoe today.
[2020-04-04 12:47] VITALS: BP 86/58
--- NOTE | 2020-04-04 14:26 | NUR ---
D/C Planning Per social service consult for home health for tube care. Faxed clinical information to [facility]. Per Paulina Barton patient has been accepted and service to start within 24-48hrs upon d/c day.
[2020-04-04] MEDS ORDERED: INFLUENZA QUAD 2020-2021 0.5 ML SYRG IM ONE (16:30)
--- NOTE | 2020-04-04 16:50 | NUR ---
I spoke with Homa from [facility]-faxed her requested home health order-requesting authorization for [facility]. I made her aware that patient is going home with heimlich valve.
--- NOTE | 2020-04-04 17:34 | NUR ---
Discharge instructions given as ordered. Encourage to follow up with PMD as instructed. All questions and concerns addressed. Patient verbalized understanding. Medication reconciliation form completed and copy given to patient. Needed vaccines given.Heimlich valve chest tube in place to right side, no leaking noted at discharge. Patient taken to vehicle via wheelchair with all personal belongings, accompanied by . No distress noted at time of departure.
== END 2020-04-04 17:30 | disposition home health service (06) | DRG 163 ==
LOC: ER 15:49 → TELE 22:02 → TELE-CENTR 03-22 01:20 → ICU WEST 03-23 12:41 → TELE-CENTR 03-25 17:02 → CENTRAL 03-29 10:56 → WEST WING 04-04 12:27
PROVIDERS: ADMIT Nurse Practitioner; ATTEND Internal Medicine
PROC: 30233N1 Transfusion of Nonautologous Red Blood Cells into Peripheral Vein, Percutaneous Approach (ICD-10-PCS; 2020-03-22)
PROC: 0BBD0ZX Excision of Right Middle Lung Lobe, Open Approach, Diagnostic (ICD-10-PCS; 2020-03-23)
PROC: 0W9930Z Drainage of Right Pleural Cavity with Drainage Device, Percutaneous Approach (ICD-10-PCS; 2020-03-23)
PROC: 5A1935Z Respiratory Ventilation, Less than 24 Consecutive Hours (ICD-10-PCS; 2020-03-23)
PROC: 0BH17EZ Insertion of Endotracheal Airway into Trachea, Via Natural or Artificial Opening (ICD-10-PCS; 2020-03-23)
PROC: 02HV33Z Insertion of Infusion Device into Superior Vena Cava, Percutaneous Approach (ICD-10-PCS; 2020-03-23)
PROC: 0BNK0ZZ Release Right Lung, Open Approach (ICD-10-PCS; principal; 2020-03-23 11:21)
DX: J94.8 Other specified pleural conditions (principal); J15.1 Pneumonia due to Pseudomonas; J96.01 Acute respiratory failure with hypoxia; E43 Unspecified severe protein-calorie malnutrition; J93.81 Chronic pneumothorax; J44.0 Chronic obstructive pulmonary disease with (acute) lower respiratory infection; Z20.828 Contact with and (suspected) exposure to other viral communicable diseases; E11.9 Type 2 diabetes mellitus without complications; F31.9 Bipolar disorder, unspecified; E78.5 Hyperlipidemia, unspecified; K59.00 Constipation, unspecified; I10 Essential (primary) hypertension; G47.00 Insomnia, unspecified; D63.8 Anemia in other chronic diseases classified elsewhere; Z79.899 Other long term (current) drug therapy; Z88.0 Allergy status to penicillin; Z68.21 Body mass index [BMI] 21.0-21.9, adult; Z23 Encounter for immunization; Z90.710 Acquired absence of both cervix and uterus; Z90.49 Acquired absence of other specified parts of digestive tract; Z82.49 Family history of ischemic heart disease and other diseases of the circulatory system; Z83.3 Family history of diabetes mellitus; Z87.01 Personal history of pneumonia (recurrent)
CPT/HCPCS: 36415; 36569; 36600; 71045; 71046; 71250; 80048; 80053; 81001; 82040; 82805; 82962; 83540; 83550; 83880; 84484; 85025; 85379; 85610; 85730; 86850; 86900; 86901; 86920; 87070; 87075; 87077; 87081; 87186; 87205; 87426; 93005; 93306; 93970; 94002; 94003; 94640; 96365; 96375; 96376; 97116; 97163; 97530; A4565; C9113; G0378; J0330; J1815; J1885; J1956; J2185; J2250; J2405; J2704; J3490

== ENCOUNTER 2021-04-13 13:18 | Emergency (ER) | payer OTHER, MEDICAID ==
[~2021-04-13] VITALS: Ht 162.6 cm; Wt 90.7 kg
[~2021-04-13 13:18] MED LIST changes: +DOCU1CAP22 PO; -DOCU1CAP31 PO
[2021-04-13] MEDS ORDERED: MORPHINE SULFATE 4 MG/ML SYR/VIAL IV ONE (13:45)
[2021-04-13] MEDS ORDERED: PANTOPRAZOLE 40 MG/10 ML VIAL INJ IV ONE (13:45)
[2021-04-13] MEDS ORDERED: ONDANSETRON HCL 4 MG/2 ML VIAL IV ONE (13:45)
[2021-04-13 14:38] LABS: Basophils # (auto) 0 10 ^3/uL (0-0.2); Basophils % (auto) 0.6 % (0.0-2.0); Eosinophils # (auto) 0.2 10 ^3/uL (0-0.8); Eosinophils % (auto) 3.3 % (0.0-7.0); Hematocrit 38.4 % (36.0-46.0); Hemoglobin 12.3 g/dL (12.2-16.2); Lymphocytes # (auto) 2.4 10 ^3/uL (0.4-5.4); Lymphocytes % (auto) 47.9 % (10.0-50.0); Mean Corpuscular Hemoglobin 27.8 pg (28.0-32.0); Mean Corpuscular Volume 86.7 fL (80.0-100.0); Monocytes # (auto) 0.3 10 ^3/uL (0-1.3); Monocytes % (auto) 5.4 % (0.0-12.0); Neutrophils # (auto) 2.2 10 ^3/uL (1.6-8.6); Neutrophils % (auto) 42.8 % (37.0-80.0); Nucleated Red Blood Cells % 0.1 %; Red Blood Cells 4.43 10^6/uL (4.0-5.20); Red Cell Distribution Width 13.2 % (11.8-14.3); White Blood Cell 5.1 10^3/uL (4.4-10.8)
[2021-04-13 14:49] LABS: Albumin 3.4 g/dL (3.4-5.0); Calcium 8.4 mg/dL (8.5-10.1); Potassium 4.4 mmol/L (3.5-5.1)
[2021-04-13 14:52] LABS: BUN/Creatinine Ratio 15.2; Bilirubin, Total 0.2 mg/dL (0.2-1.0); Total Protein 7.3 g/dL (6.4-8.2)
[2021-04-13 17:40] VITALS: BP 100/58
== END 2021-04-13 17:51 | disposition home or self-care (01) ==
LOC: ER 13:18
DX: K59.00 Constipation, unspecified (principal); I10 Essential (primary) hypertension; E11.9 Type 2 diabetes mellitus without complications; J44.9 Chronic obstructive pulmonary disease, unspecified; Z90.49 Acquired absence of other specified parts of digestive tract; Z87.891 Personal history of nicotine dependence; Z79.899 Other long term (current) drug therapy; Z90.710 Acquired absence of both cervix and uterus; Z88.0 Allergy status to penicillin
CPT/HCPCS: 36415; 74176; 80053; 83690; 85025

== ENCOUNTER 2021-11-15 13:57 | Emergency (ER) | payer OTHER, MEDICAID ==
[~2021-11-15] VITALS: Ht 162.6 cm; Wt 90.7 kg
[2021-11-15 14:34] VITALS: BP 139/80
== END 2021-11-15 20:46 | disposition left against medical advice (07) ==
LOC: ER 13:57
DX: R05.9 Cough, unspecified (principal); Z53.21 Procedure and treatment not carried out due to patient leaving prior to being seen by health care provider